=== PATIENT | female | born 1970 | race Caucasian/White ===

== ENCOUNTER 2016-10-30 23:57 | Emergency (ER) | payer BC, OTHER ==
[~2016-10-30] VITALS: Ht 175.3 cm; Wt 91.8 kg
[~2016-10-30 23:57] MED LIST: ATV5X PO; BCPILLS PO; BUPR-79 PO; FLUO40CA8 PO; MELA3TAB PO; RISP3TAB12 PO
[2016-10-30 23:59] VITALS: TEMP 36.8; Ht 175.3 cm; Wt 91.8 kg
[2016-10-31] MEDS ORDERED: LEVO125T4 PO (00:33)
[2016-10-31] MEDS ORDERED: PROM25TA16 PO (00:33)
[2016-10-31] MEDS ORDERED: TRD10 PO (00:33)
[2016-10-31] MEDS ORDERED: VLM5CL PO (00:33)
[2016-10-31] MEDS ORDERED: QUET1TAB10 PO (00:33)
[2016-10-31] MEDS ORDERED: BCPILLS PO (00:36)
[2016-10-31] MEDS ORDERED: VENL75CA PO (00:37)
[2016-10-31] MEDS ORDERED: VORT1TAB PO (00:39)
[2016-10-31] MEDS ORDERED: FOLI1TAB7 PO (00:39)
[2016-10-31] MEDS ORDERED: MULT-506 PO (00:39)
[2016-10-31] MEDS ORDERED: METH10TA4 PO (00:39)
[2016-10-31] MEDS ORDERED: LAMO150T32 PO (00:39)
[2016-10-31] MEDS ORDERED: CYAN10005 PO (00:39)
[2016-10-31 00:41] LABS: BASO % 0.2 %; BASO ABS # 0.01 K/uL (0-0.2); COMPLETE YES; HEMATOCRIT 33.4 % (37-47); IG% 0.2 %; LYMPH % 21.8 %; LYMPH ABS # 1.18 K/uL (1.2-3.4); MEAN CORPUSCULAR HEMOGLOBIN 31.1 pg (25-34); MEAN CORPUSCULAR HGB CONC 33.8 g/dl (32-36); MEAN PLATELET VOLUME 8.9 fL (7.4-10.4); MONO % 9.4 %; NEUT % 66.4 %; PLATELET COUNT 323 K/uL (130-400); RED BLOOD COUNT 3.63 M/uL (4.2-5.4); WHITE BLOOD COUNT 5.42 K/uL (4.8-10.8)
[2016-10-31 01:08] LABS: BUN/CREATININE RATIO 3.8 (10-20); CALCIUM 8.6 mg/dl (8.5-10.1); CREATININE 0.68 mg/dl (0.60-1.20); POTASSIUM 3.1 mmol/L (3.5-5.1)
[2016-10-31 01:10] LABS: ACETAMINOPHEN < 2 ug/ml (10-30)
[2016-10-31 01:19] LABS: ALB/GLOB RATIO 1.1 (0.9-2); THYROID STIMULATING HORMONE 4.97 uIu/ml (0.300-4.500)
[2016-10-31] MEDS ORDERED: ACETAMINOPHEN 500 MG TAB PO STA (02:09)
[2016-10-31 02:29] LABS: URINE APPEARANCE CLEAR (CLEAR); URINE BILIRUBIN NEG (NEG); URINE COLOR YELLOW; URINE NITRITE NEG (NEG); URINE PH 5.5 (4.5-7.5); UROBILINOGEN NEG (NEG); ZZUR CULT IF INDIC CLEAN CATCH NO
[2016-10-31 02:38] LABS: MANUAL MICROSCOPIC REQUIRED? YES; REVIEW REQ? NO
[2016-10-31 03:12] LABS: URINE RBC 0-4 /hpf (0-4)
[2016-10-31 03:13] LABS: URINE BACTERIA NEG (NEG)
[2016-10-31 03:18] LABS: BENZODIAZEPINE, URINE NEG (NEG); COCAINE,URINE NEG (NEG); PHENCYCLIDINE, URINE NEG (NEG)
--- NOTE | 2016-10-31 03:18 | EMERGENCY ROOM VISIT NOTE ---
History Report prepared by Shyla: Suzie Stevens Under the Supervision of: Dr. Howard Zapata M.D. First contact with patient: 00:03 Chief Complaint: MENTAL HEALTH EVALUATION Stated Complaint: DEPRESSION History of Present Illness The patient is a 46 year old female who presents to the Emergency Room for a mental health evaluation. The patient states that she is having worsening depression. She reports that she has been under a lot of stress since her significant other is in [facility]. She states that she has had thoughts of killing herself, but denies ever trying to. She states that tonight she called her psychiatrist who called into here. She reports that she has been in an inpatient psychiatric facility multiple times in the past with the most recent being last year. She notes that she has been drinking tonight and states she has only had 3 wine coolers. She denies drinking daily. The patient notes that the band aid on her arm is from having blood work done at [facility] today. She states that she was there for headaches and gaining 10 lbs in the past two weeks. She reports that they noticed that she had high blood pressure. The patient notes that she has had recent falls from being off balance and dizzy, but notes that she has had this before. The patient denies any drug use. Source of History: patient Onset: this evening Position: other (global) Quality: other (global) Timing: worsening, other (episode) Associated Symptoms: + headache Note: The patient complains of recent falls and dizziness. The patient denies drug use. Review of Systems See HPI for pertinent positives & negatives. A total of 10 systems reviewed and were otherwise negative. Past Medical & Surgical Medical Problems: (1) Anxiety (2) Depression Surgical Problems: (1) History of gastric bypass Family History FHx: manic depression Social History Smoking Status: Never Smoker Alcohol Use: occasionally Drug Use: none Marital Status: , in relationship Housing Status: lives with family Occupation Status: employed Current/Historical Medications Scheduled Control Pills ( Control Pills), 1 TAB PO DAILY Cyanocobalamin (Vitamin B-12), 1,000 MCG PO DAILY Folic Acid (Folvite), 1 MG PO DAILY Lamotrigine (Lamictal), 75 MG PO DAILY Levothyroxine Sodium (Levothyroxine Sodium), 125 MCG PO DAILY Multivitamin (Multivitamin), 1 TAB PO DAILY Quetiapine Fumarate (Seroquel), 200 MG PO HS Venlafaxine Hcl (Effexor Xr), 75 MG PO DAILY Vortioxetine HBr (Trintellix), 5 MG PO DAILY Scheduled PRN Diazepam (Diazepam), 5 MG PO BID PRN for Anxiety Ketorolac Tromethamine (Ketorolac Tromethamine), 10 MG PO Q6 PRN for Migraine Methylphenidate (Ritalin), 10 MG PO TID PRN for UNDECIDED Promethazine HCl (Promethazine HCl), 25 MG PO Q6 PRN for Nausea Allergies Coded Allergies: Codeine (Unverified Allergy, Unknown, `, 10/31/16) Penicillins (Unverified Allergy, Unknown, `, 10/31/16) Physical Exam Vital Signs Date Time Temp Pulse Resp B/P (MAP) Pulse Ox O2 Delivery O2 Flow Rate FiO2 10/31/16 04:47 95 18 137/94 97 Room Air 10/30/16 23:59 36.8 97 18 144/91 100 Room Air Physical Exam GENERAL: Patient is well appearing and in no acute distress. Depressed. Rapid soft speech. Mildly intoxicated. Smells of alcohol. HEENT: No acute trauma, normocephalic atraumatic, mucous membranes moist, no nasal congestion, no scleral icterus. NECK: No stridor, no adenopathy, no meningismus, trachea is midline. LUNGS: No dyspnea. Clear to auscultation and equal bilaterally. No wheeze, no rhonchi. HEART: Regular rate and rhythm. No murmurs, rubs, gallops appreciated. ABDOMEN: Soft, nontender, bowel sounds positive, no masses appreciated, no peritonitis. BACK: No midline tenderness, no CVA tenderness EXTREMITIES: Normal motion all extremities, no cyanosis, no edema. NEUROLOGIC: Alert and oriented, no acute motor or sensory deficits, no focal weakness, cranial nerves grossly intact. SKIN: No rash, no jaundice, no diaphoresis. PSYCH: Admits suicidal ideation. Admits depression. Denies homicidal ideation. Medical Decision & Procedures Laboratory Results 10/31/16 00:30 Red Blood Count 3.63, Mean Corpuscular Volume 92.0, Mean Corpuscular Hemoglobin 31.1, Mean Corpuscular Hemoglobin Concent 33.8, Mean Platelet Volume 8.9, Neutrophils (%) (Auto) 66.4, Lymphocytes (%) (Auto) 21.8, Monocytes (%) (Auto) 9.4, Eosinophils (%) (Auto) 2.0, Basophils (%) (Auto) 0.2, Neutrophils # (Auto) 3.60, Lymphocytes # (Auto) 1.18, Monocytes # (Auto) 0.51, Eosinophils # (Auto) 0.11, Basophils # (Auto) 0.01 10/31/16 00:30 Test 10/31/16 00:30 10/31/16 02:03 White Blood Count 5.42 K/uL (4.8-10.8) Red Blood Count 3.63 M/uL (4.2-5.4) Hemoglobin 11.3 g/dL (12.0-16.0) Hematocrit 33.4 % (37-47) Mean Corpuscular Volume 92.0 fL (80-100) Mean Corpuscular Hemoglobin 31.1 pg (25-34) Mean Corpuscular Hemoglobin Concent 33.8 g/dl (32-36) Platelet Count 323 K/uL (130-400) Mean Platelet Volume 8.9 fL (7.4-10.4) Neutrophils (%) (Auto) 66.4 % Lymphocytes (%) (Auto) 21.8 % Monocytes (%) (Auto) 9.4 % Eosinophils (%) (Auto) 2.0 % Basophils (%) (Auto) 0.2 % Neutrophils # (Auto) 3.60 K/uL (1.4-6.5) Lymphocytes # (Auto) 1.18 K/uL (1.2-3.4) Monocytes # (Auto) 0.51 K/uL (0.11-0.59) Eosinophils # (Auto) 0.11 K/uL (0-0.5) Basophils # (Auto) 0.01 K/uL (0-0.2) RDW Standard Deviation 43.1 fL (36.4-46.3) RDW Coefficient of Variation 12.8 % (11.5-14.5) Immature Granulocyte % (Auto) 0.2 % Immature Granulocyte # (Auto) 0.01 K/uL (0.00-0.02) Anion Gap 7.0 mmol/L (3-11) Est Creatinine Clear Calc Drug Dose 124.8 ml/min Estimated GFR () 121.6 Estimated GFR (Non- 104.9 BUN/Creatinine Ratio 3.8 (10-20) Calcium Level 8.6 mg/dl (8.5-10.1) Total Bilirubin 0.2 mg/dl (0.2-1) Aspartate Amino Transf (AST/SGOT) 24 U/L (15-37) Alanine Aminotransferase (ALT/SGPT) 31 U/L (12-78) Alkaline Phosphatase 92 U/L (45-117) Total Protein 7.1 gm/dl (6.4-8.2) Albumin 3.7 gm/dl (3.4-5.0) Globulin 3.4 gm/dl (2.5-4.0) Albumin/Globulin Ratio 1.1 (0.9-2) Thyroid Stimulating Hormone (TSH) 4.970 uIu/ml (0.300-4.500) Salicylates Level < 1.7 mg/dl (2.8-20) Acetaminophen Level < 2 ug/ml (10-30) Ethyl Alcohol mg/dL 48.0 mg/dl (0-3) Urine Color YELLOW Urine Appearance CLEAR (CLEAR) Urine pH 5.5 (4.5-7.5) Urine Specific [place] 1.010 (1.000-1.030) Urine Protein NEG (NEG) Urine Glucose (UA) NEG (NEG) Urine Ketones NEG (NEG) Urine Occult Blood NEG (NEG) Urine Nitrite NEG (NEG) Urine Bilirubin NEG (NEG) Urine Urobilinogen NEG (NEG) Urine Leukocyte Esterase NEG (NEG) Urine WBC (Auto) /hpf (0-5) Urine RBC (Auto) /hpf (0-4) Urine Hyaline Casts (Auto) /lpf (0-5) Urine Epithelial Cells (Auto) /lpf (0-5) Urine Bacteria (Auto) (NEG) Urine RBC 0-4 /hpf (0-4) Urine WBC 5-10 /hpf (0-5) Urine Epithelial Cells >30 /lpf (0-5) Urine Calcium Oxalate Crystals PRESENT (NONE PRSENT) Urine Bacteria NEG (NEG) Urine Test NEG (NEG) Urine Opiates Screen NEG (NEG) Urine Methadone, Qualitative NEG (NEG) Urine Barbiturates NEG (NEG) Urine Phencyclidine (PCP) Level NEG (NEG) Ur Amphetamine/Methamphetamine NEG (NEG) MDMA (Ecstasy) Screen NEG (NEG) Urine Benzodiazepines Screen NEG (NEG) Urine Cocaine Metabolite NEG (NEG) Urine Marijuana (THC) NEG (NEG) Laboratory results as reviewed by me. Medications Administered Medications (Trade) Dose Ordered Sig/Landy Route Start Time Stop Time Status Last Admin Dose Admin Acetaminophen (Tylenol Tab) 1,000 mg NOW STAT PO 10/31/16 02:09 10/31/16 02:10 DC 10/31/16 02:09 1,000 MG ED Course 0009: The patient was evaluated in room A8. A complete history and physical exam was performed. 0138: The patient is currently being evaluated by [address] [place] [address]. 0208: The patient's bed search has begun. 0209: Ordered Tylenol Tab 1000 mg PO. 0614: The patient has been accepted to [facility]. Medical Decision Differential: Mood Disorder, Overdose, Infectious, Electrolyte Abnormality, Cardiac, Hepatic, Endocrine, Toxicologic, Neurologic, amongst other pathologies entertained. 46 yr old very depressed female arrives with acute worsening of depression and having suicidal thoughts/ideation. No act of furtherance at this time. She is somewhat rapid speech but also quite depressed. Smells of alcohol though etoh within legal limits and she is not significantly intoxicated. Notes some weight issues over last few weeks though medically she is clear from emergency med standpoint. 3 [facility] down to evaluate and she was accepted to [facility] for further treatment. Medication Reconcilliation Current Medication List: was personally reviewed by me Blood Pressure Screening Patient's blood pressure: Elevated blood pressure Blood pressure disposition: Elevated BP felt to be situational Impression Primary Impression: Depression Additional Impression: Suicidal ideation Scribe Attestation The scribe's documentation has been prepared under my direction and personally reviewed by me in its entirety. I confirm that the note above accurately reflects all work, treatment, procedures, and medical decision making performed by me. Departure Information Dispostion Mental Health Acute Care Referrals Nick Amanda III, M.D. (PCP) Patient Instructions My [facility] Problem Qualifiers
[2016-10-31 04:47] VITALS: BP 137/94; PULSE 95; O2SAT 97
== END 2016-10-31 08:23 ==
LOC: C.EDB 23:58 → C.EDA 10-31 08:23
DX: F32.9 Major depressive disorder, single episode, unspecified (principal); R45.851 Suicidal ideations; Z98.84 Bariatric surgery status; Z81.8 Family history of other mental and behavioral disorders; Z79.3 Long term (current) use of hormonal contraceptives; Z79.899 Other long term (current) drug therapy

== ENCOUNTER 2018-07-14 19:24 | Inpatient (IN) ==
[2018-07-14 20:31] LABS: Basophils # (auto) 0.01 K/uL (0-0.2); Basophils % (auto) 0.2 %; Eosinophils # (auto) 0.18 K/uL (0-0.5); Eosinophils % (auto) 3.8 %; Hematocrit (blood only) 40.8 % (37-47); Hemoglobin 13.8 g/dL (12.0-16.0); Lymphocytes # (auto) 2.05 K/uL (1.2-3.4); Lymphocytes % (auto) 42.8 %; Mean Corpuscular Hgb Conc 33.8 g/dL (32-36); Mean Corpuscular Volume 89.9 fL (80-100); Mean Platelet Volume 9.7 fL (7.4-10.4); Monocytes # (auto) 0.31 K/uL (0.11-0.59); Monocytes % (auto) 6.5 %; Neutrophils # (auto) 2.24 K/uL (1.4-6.5); Neutrophils % (auto) 46.7 %; Platelet Count 363 K/uL (130-400); RDW Coefficient of Variation 13.6 % (11.5-14.5); RDW Standard Deviation 45.1 fL (36.4-46.3); Red Blood Count 4.54 M/uL (4.2-5.4); White Blood Count 4.79 K/uL (4.8-10.8)
[2018-07-14 20:46] LABS: Acetaminophen < 2 ug/ml (10-30); Albumin Level 3.9 gm/dl (3.4-5.0); BUN Creatinine Ratio 7.6 (10-20); Calcium 9.2 mg/dl (8.5-10.1); Creatinine Clr Calc Pharmacy 119.3 ml/min; Est GFR (African American) 116.7; Est GFR (Non-African American) 100.7; Potassium 4.2 mmol/L (3.5-5.1); Salicylate < 1.7 mg/dl (2.8-20)
[2018-07-14 20:56] LABS: Albumin Globulin Ratio 1.1 (0.9-2); Bilirubin,Total 0.3 mg/dl (0.2-1); Globulin 3.6 gm/dl (2.5-4.0); Total Protein 7.5 gm/dl (6.4-8.2)
[2018-07-14 21:12] LABS: Appearance Urine Cloudy (Clear); Bilirubin Urine Negative (Negative); Blood Urine Negative (Negative); Color Urine Yellow; Glucose Urine UA Negative (Negative); Ketones Urine Negative (Negative); Leukocyte Esterase Urine Negative (Negative); Nitrite Urine Negative (Negative); Protein Urine Negative (Negative); Urobilinogen Urine Negative (Negative); pH Urine 5.5 (4.5-7.5)
[2018-07-14 21:12] LABS: T4 Free Thyroxine 1.03 ng/dl (0.8-1.6)
[2018-07-14 21:27] LABS: Amphetamines+Metham, Urine Neg (Neg); Barbiturates, Urine Neg (Neg); Benzodiazepine, Urine Neg (Neg); Cocaine, Urine Neg (Neg); MDMA (Ecstacy), Urine Neg (Neg); Methadone, Urine Neg (Neg); Opiate, Urine Neg (Neg); Phencyclidine, Urine Neg (Neg)
[2018-07-14 21:30] LABS: Bacteria Urine Automated 1+ (Negative); Cast Urine Automated 0 /lpf (0-5); Epithelial Cell Urine Auto >30 /lpf (0-5); RBC Urine Automated 0-4 /hpf (0-4)
[2018-07-14] MEDS ORDERED: ACETAMINOPHEN 325 MG TAB PO STA (21:39)
--- NOTE | 2018-07-15 01:26 | Emergency Department Note ---
Entered by Mushtaq Lizarraga acting as a scribe for Davion Valentino DO History of Present Illness General Chief complaint: Mental Health Evaluation Stated complaint: MENTAL HEALTH EVAL Time Seen by Provider: 07/15/18 01:18 Source: patient Limitations: no limitations History of Present Illness Onset (ago): week(s) 1 Location: head Pain Consistency: + intermittent Maximum Pain Intensity: 5 Quality: + other (episodes) Associated symptoms: + denies other symptoms (hearing voices) The patient is a 48 year old female who presents to the Emergency Room with complaints of intermittent manic episodes starting last week. The patient states she has a history of Bipolar disorder and notes she takes Prozac, Ambien, Zyprexa, and Lamictal. She notes she has been taking all her medications. She states last week she was in a hypomanic/manic state and it started getting bad at that time. She notes her depression has been getting bad. She notes Thursday she found out she was going to be questioned regarding her disability benefits and states she got upset when she found that out. She notes she has thoughts of wanting to kill herself and states that started over the weekend. She notes her plan was to wreck her car. She states she does not work. She notes she is not hearing voices. Home Medications Home Medications Medication Instructions Recorded Confirmed Type cholecalciferol (vitamin D3) 1,000 mg PO DAILY 06/02/18 07/14/18 History [Vitamin D3] clonazepam [Klonopin] 0.5 mg PO DAILY PRN 06/02/18 07/14/18 History fluoxetine 30 mg PO DAILY 06/02/18 07/14/18 History levothyroxine [Synthroid] 125 mcg PO DAILY 06/02/18 07/14/18 History metformin 1,500 mg PO DAILY 06/02/18 07/14/18 History olanzapine [Zyprexa] 20 mg PO DAILY 06/02/18 07/14/18 History prazosin 1 mg PO HS 06/02/18 07/14/18 History zolpidem [Ambien CR] 12.5 mg PO DAILY 06/02/18 07/14/18 History cyanocobalamin (vitamin B-12) 1,000 mcg IM MONTHLY 06/09/18 07/14/18 History lamotrigine 75 mg PO BID 06/09/18 07/14/18 History olanzapine 5 mg PO DAILY 06/09/18 07/14/18 History Allergies Allergy/AdvReac Type Severity Reaction Status Date / Time codeine Allergy Unknown ` Unverified 06/09/18 13:54 Penicillins Allergy Unknown ` Unverified 06/09/18 13:54 Past Med/Surg History Medical History Anxiety (Chronic) Depression (Acute) Shilpa (Acute) Status post electroconvulsive therapy (Acute) Anxiety (Chronic) Bipolar disorder (Chronic) Depression (Chronic) Seizure (Resolved) Acute insomnia (Inactive) Bipolar disorder (Inactive) Dehydration (Inactive) Family History Other Cancer Diabetes Gallbladder disease Heart disease Lung disease Social History Preferred Language: Maltese marital status: Current Living Situation: Alone current occupational status: disabled Feels Safe at Home: Yes Smoking Status: Never smoker Review of Systems See HPI for pertinent positives & negatives. and A total of 10 systems reviewed and were otherwise negative Physical Exam Vital Signs Vital Signs - 24 hr 07/14/18 19:27 07/14/18 21:37 07/14/18 23:16 Temperature 36.9 C Temperature Source Oral Sepsis Recent Fever Within 48 Hours No Sepsis New/Unexplained Change in Mental Status No Sepsis Action Taken by Nursing No Action Required Pulse Rate 90 Pulse Rate [Finger] 84 82 Respiratory Rate 18 18 18 Respiratory Effort / Characteristics Non-Labored Spontaneous Respiratory Depth Normal Blood Pressure 152/91 H Blood Pressure [Left Arm] 158/86 H 139/79 Blood Pressure Mean 111 Blood Pressure Mean [Left Arm] 110 99 Pulse Oximetry 99 98 95 Oxygen Delivery Method Room Air Room Air GENERAL: alert, well nourished, no acute distress, non-toxic. Sitting in bed. Disheveled. EYE EXAM: normal conjunctiva OROPHARYNX: no exudate, no erythema, lips, buccal mucosa, and tongue normal and mucous membranes are moist NECK: supple, no nuchal rigidity, no adenopathy, non-tender LUNGS: Clear to auscultation. Normal chest wall mechanics HEART: no murmurs, S1 normal and S2 normal ABDOMEN: abdomen soft, non-tender, normo-active bowel sounds, no masses, no rebound or guarding. BACK: Back is symmetrical on inspection and there is no deformity, no midline tenderness, no CVA tenderness. SKIN: no rashes and no bruising UPPER EXTREMITIES: upper extremities are grossly normal. LOWER EXTREMITIES: No pitting edema. NEURO EXAM: Normal sensorium, cranial nerves II-XII grossly intact, normal speech, no gross weakness of arms, no gross weakness of legs. PSYCH: Admits to suicidal ideations with plan to crash car. Course ED COURSE: Vital signs were reviewed and showed hypertension situationally. The patients medical record was reviewed The above diagnostic studies were performed and reviewed. ED treatments and interventions as stated above. 1939: The patient was evaluated in room A12. A complete history and physical examination was performed. 0230: Upon reevaluation, the patient is stable. I discussed my findings with the patient and she understands and agrees with the treatment plan. 0230: The patient was signed out to Dr. Zapata. The patient remained stable while under my care. The patient will be evaluated for further management. Administered Medications Discontinued Medications Acetaminophen (Tylenol) 650 mg PO NOW STA Stop: 07/14/18 21:40 Last Admin: 07/14/18 21:53 Dose: 650 mg Documented by: [id number] Medical Decision Making Differential Diagnosis Differential diagnosis: Etiologies such as psychiatric disorder, infection, hypoglycemia, electrolyte abnormalities, cardiac sources, intracerebral event, toxicological process, neurologic disorder, as well as others were entertained. Medical Records Attestation: I reviewed the patient's medical records. Home Medications Current Medication List: was personally reviewed by me Laboratory Data Result diagrams: 07/14/18 20:11 07/14/18 20:11 Lab Results 07/14/18 07/14/18 07/14/18 Range/Units 20:11 20:11 20:11 WBC 4.79 L (4.8-10.8) K/uL RBC 4.54 (4.2-5.4) M/uL Hgb 13.8 (12.0-16.0) g/dL Hct 40.8 (37-47) % MCV 89.9 (80-100) fL MCH 30.4 (25-34) pg MCHC 33.8 (32-36) g/dL RDW Std Deviation 45.1 (36.4-46.3) fL RDW Coeff of Krystle 13.6 (11.5-14.5) % Plt Count 363 (130-400) K/uL MPV 9.7 (7.4-10.4) fL Immature Gran % (Auto) 0.0 % Neut % (Auto) 46.7 % Lymph % (Auto) 42.8 % [place] % (Auto) 6.5 % Eos % (Auto) 3.8 % Baso % (Auto) 0.2 % Immature Gran # (Auto) 0.00 (0.00-0.02) K/uL Neut # (Auto) 2.24 (1.4-6.5) K/uL Lymph # (Auto) 2.05 (1.2-3.4) K/uL [place] # (Auto) 0.31 (0.11-0.59) K/uL Eos # (Auto) 0.18 (0-0.5) K/uL Baso # (Auto) 0.01 (0-0.2) K/uL Sodium 136 (136-145) mmol/L Potassium 4.2 (3.5-5.1) mmol/L Chloride 103 (98-107) mmol/L Carbon Dioxide 27 (21-32) mmol/L Anion Gap 7.0 (3-11) BUN 5 L (7-18) mg/dl Creatinine 0.71 (0.6-1.2) mg/dl Est Cr Clr Drug Dosing 119.3 ml/min Est GFR ( Amer) 116.7 Est GFR (Non-Af Amer) 100.7 BUN/Creatinine Ratio 7.6 L (10-20) Glucose 77 (70-99) mg/dl Calcium 9.2 (8.5-10.1) mg/dl Total Bilirubin 0.3 (0.2-1) mg/dl AST 16 (15-37) U/L ALT 20 (12-78) U/L Alkaline Phosphatase 77 (45-117) U/L Total Protein 7.5 (6.4-8.2) gm/dl Albumin 3.9 (3.4-5.0) gm/dl Globulin 3.6 (2.5-4.0) gm/dl Albumin/Globulin Ratio 1.1 (0.9-2) TSH 4.520 H (0.300-4.500) uIu/ml Free T4 1.03 (0.8-1.6) ng/dl Urine Color Urine Appearance (Clear) Urine pH (4.5-7.5) Ur Specific [place] (1.000-1.030) Urine Protein (Negative) Urine Glucose (UA) (Negative) Urine Ketones (Negative) Urine Blood (Negative) Urine Nitrite (Negative) Urine Bilirubin (Negative) Urine Urobilinogen (Negative) Ur Leukocyte Esterase (Negative) Urine WBC (Auto) (0-5) /hpf Urine RBC (Auto) (0-4) /hpf U Hyaline Cast (Auto) (0-5) /lpf U Epithel Cells (Auto) (0-5) /lpf Urine Bacteria (Auto) (Negative) Urine RBC Urine WBC Ur Epithelial Cells Urine Bacteria POC Ur Test (NEG) Salicylates < 1.7 L (2.8-20) mg/dl Urine Opiates Screen (Neg) Ur Methadone, Qual (Neg) Acetaminophen < 2 L (10-30) ug/ml Urine Barbiturates (Neg) Ur Phencyclidine (PCP) (Neg) U Amphetamin/Meth Scrn (Neg) MDMA (Ecstasy) Screen (Neg) U Benzodiazepines Scrn (Neg) Ur Cocaine Metabolite (Neg) U Marijuana (THC) Screen (Neg) Ethyl Alcohol mg/dL (0-3) mg/dl 07/14/18 07/14/18 07/14/18 Range/Units 20:11 20:54 20:54 WBC (4.8-10.8) K/uL RBC (4.2-5.4) M/uL Hgb (12.0-16.0) g/dL Hct (37-47) % MCV (80-100) fL MCH (25-34) pg MCHC (32-36) g/dL RDW Std Deviation (36.4-46.3) fL RDW Coeff of Krystle (11.5-14.5) % Plt Count (130-400) K/uL MPV (7.4-10.4) fL Immature Gran % (Auto) % Neut % (Auto) % Lymph % (Auto) % [place] % (Auto) % Eos % (Auto) % Baso % (Auto) % Immature Gran # (Auto) (0.00-0.02) K/uL Neut # (Auto) (1.4-6.5) K/uL Lymph # (Auto) (1.2-3.4) K/uL [place] # (Auto) (0.11-0.59) K/uL Eos # (Auto) (0-0.5) K/uL Baso # (Auto) (0-0.2) K/uL Sodium (136-145) mmol/L Potassium (3.5-5.1) mmol/L Chloride (98-107) mmol/L Carbon Dioxide (21-32) mmol/L Anion Gap (3-11) BUN (7-18) mg/dl Creatinine (0.6-1.2) mg/dl Est Cr Clr Drug Dosing ml/min Est GFR ( Amer) Est GFR (Non-Af Amer) BUN/Creatinine Ratio (10-20) Glucose (70-99) mg/dl Calcium (8.5-10.1) mg/dl Total Bilirubin (0.2-1) mg/dl AST (15-37) U/L ALT (12-78) U/L Alkaline Phosphatase (45-117) U/L Total Protein (6.4-8.2) gm/dl Albumin (3.4-5.0) gm/dl Globulin (2.5-4.0) gm/dl Albumin/Globulin Ratio (0.9-2) TSH (0.300-4.500) uIu/ml Free T4 (0.8-1.6) ng/dl Urine Color Yellow Urine Appearance Cloudy A (Clear) Urine pH 5.5 (4.5-7.5) Ur Specific [place] 1.010 (1.000-1.030) Urine Protein Negative (Negative) Urine Glucose (UA) Negative (Negative) Urine Ketones Negative (Negative) Urine Blood Negative (Negative) Urine Nitrite Negative (Negative) Urine Bilirubin Negative (Negative) Urine Urobilinogen Negative (Negative) Ur Leukocyte Esterase Negative (Negative) Urine WBC (Auto) 1-5 (0-5) /hpf Urine RBC (Auto) 0-4 (0-4) /hpf U Hyaline Cast (Auto) 0 (0-5) /lpf U Epithel Cells (Auto) >30 H (0-5) /lpf Urine Bacteria (Auto) 1+ H (Negative) Urine RBC Not Reportable Urine WBC Not Reportable Ur Epithelial Cells Not Reportable Urine Bacteria Not Reportable POC Ur Test (NEG) Salicylates (2.8-20) mg/dl Urine Opiates Screen Neg (Neg) Ur Methadone, Qual Neg (Neg) Acetaminophen (10-30) ug/ml Urine Barbiturates Neg (Neg) Ur Phencyclidine (PCP) Neg (Neg) U Amphetamin/Meth Scrn Neg (Neg) MDMA (Ecstasy) Screen Neg (Neg) U Benzodiazepines Scrn Neg (Neg) Ur Cocaine Metabolite Neg (Neg) U Marijuana (THC) Screen Neg (Neg) Ethyl Alcohol mg/dL 90.2 H (0-3) mg/dl 07/14/18 Range/Units 20:54 WBC (4.8-10.8) K/uL RBC (4.2-5.4) M/uL Hgb (12.0-16.0) g/dL Hct (37-47) % MCV (80-100) fL MCH (25-34) pg MCHC (32-36) g/dL RDW Std Deviation (36.4-46.3) fL RDW Coeff of Krystle (11.5-14.5) % Plt Count (130-400) K/uL MPV (7.4-10.4) fL Immature Gran % (Auto) % Neut % (Auto) % Lymph % (Auto) % [place] % (Auto) % Eos % (Auto) % Baso % (Auto) % Immature Gran # (Auto) (0.00-0.02) K/uL Neut # (Auto) (1.4-6.5) K/uL Lymph # (Auto) (1.2-3.4) K/uL [place] # (Auto) (0.11-0.59) K/uL Eos # (Auto) (0-0.5) K/uL Baso # (Auto) (0-0.2) K/uL Sodium (136-145) mmol/L Potassium (3.5-5.1) mmol/L Chloride (98-107) mmol/L Carbon Dioxide (21-32) mmol/L Anion Gap (3-11) BUN (7-18) mg/dl Creatinine (0.6-1.2) mg/dl Est Cr Clr Drug Dosing ml/min Est GFR ( Amer) Est GFR (Non-Af Amer) BUN/Creatinine Ratio (10-20) Glucose (70-99) mg/dl Calcium (8.5-10.1) mg/dl Total Bilirubin (0.2-1) mg/dl AST (15-37) U/L ALT (12-78) U/L Alkaline Phosphatase (45-117) U/L Total Protein (6.4-8.2) gm/dl Albumin (3.4-5.0) gm/dl Globulin (2.5-4.0) gm/dl Albumin/Globulin Ratio (0.9-2) TSH (0.300-4.500) uIu/ml Free T4 (0.8-1.6) ng/dl Urine Color Urine Appearance (Clear) Urine pH (4.5-7.5) Ur Specific [place] (1.000-1.030) Urine Protein (Negative) Urine Glucose (UA) (Negative) Urine Ketones (Negative) Urine Blood (Negative) Urine Nitrite (Negative) Urine Bilirubin (Negative) Urine Urobilinogen (Negative) Ur Leukocyte Esterase (Negative) Urine WBC (Auto) (0-5) /hpf Urine RBC (Auto) (0-4) /hpf U Hyaline Cast (Auto) (0-5) /lpf U Epithel Cells (Auto) (0-5) /lpf Urine Bacteria (Auto) (Negative) Urine RBC Urine WBC Ur Epithelial Cells Urine Bacteria POC Ur Test NEG (NEG) Salicylates (2.8-20) mg/dl Urine Opiates Screen (Neg) Ur Methadone, Qual (Neg) Acetaminophen (10-30) ug/ml Urine Barbiturates (Neg) Ur Phencyclidine (PCP) (Neg) U Amphetamin/Meth Scrn (Neg) MDMA (Ecstasy) Screen (Neg) U Benzodiazepines Scrn (Neg) Ur Cocaine Metabolite (Neg) U Marijuana (THC) Screen (Neg) Ethyl Alcohol mg/dL (0-3) mg/dl Blood Pressure Blood Pressure Findings: Elevated blood pressure Blood Pressure Disposition: elevated BP felt to be situational MDM Narrative Patient is a 40-year-old female who presents the ER with a history of bipolar depression and feeling extremely depressed. History of suicidal ideations which has been present for the past 5 days. Patient has no other complaints at this time. She does have a plan to crash her car. She has been taking her meds. Labs are obtained show no significant leukocytosis or anemia. BMP with LFTs bilirubin and TSH was unremarkable. UA was negative. was negative. Tox did have a slightly elevated alcohol at 90. Patient was evaluated by her psychiatric care managers. Patient was signed out to Dr. Zapata awaiting placement. She is medically stable. Impression & Plan Mood disorder Discharge Plan Visit Data Chief Complaint: Mental Health Evaluation Stated Complaint: MENTAL HEALTH EVAL ED Provider: Howard Zapata Discharge Problem: Mood disorder Forms Stand Alone Forms: My [facility] Prescriptions Prescriptions: No Action metformin 500 mg Tablet 1,500 mg PO DAILY RF: 0 prazosin 1 mg Capsule 1 mg PO HS RF: 0 clonazepam [Klonopin] 0.5 mg Tablet 0.5 mg PO DAILY PRN (Reason: Anxiety) RF: 0 levothyroxine [Synthroid] 125 mcg Tablet 125 mcg PO DAILY RF: 0 fluoxetine 10 mg Capsule 30 mg PO DAILY RF: 0 olanzapine [Zyprexa] 20 mg Tablet 20 mg PO DAILY RF: 0 zolpidem [Ambien CR] 12.5 mg Tablet,Ext Release Multiphase 12.5 mg PO DAILY RF: 0 cholecalciferol (vitamin D3) [Vitamin D3] 1,000 unit Tablet 1,000 mg PO DAILY RF: 0 lamotrigine 150 mg Tablet 75 mg PO BID RF: 0 olanzapine 5 mg Tablet 5 mg PO DAILY RF: 0 cyanocobalamin (vitamin B-12) 1,000 mcg/mL Solution 1,000 mcg IM MONTHLY RF: 0 The scribe's documentation has been prepared under my direction and personally reviewed by me in its entirety. I confirm that the note above accurately reflects all work, treatment, procedures, and medical decision making performed by me.
--- NOTE | 2018-07-15 06:22 | Emergency Department Note ---
ED Visit Note ED Physician Sign Out Note: 48 yr old female with history of Bipolar who arrives feeling suicidal and Dr Valentino initially medically cleared her, and then signed out to me pending placement. 201 planned. Pending placement. No issues overnight. Signed out to Dr Kelley pending placement. Howard Zapata MD
--- NOTE | 2018-07-15 08:06 | Emergency Department Note ---
ED Visit Note Patient stable while here without other acute issues requiring intervention. Previously medically cleared. 201 completed for suicidal thoughts. Waiting here for possible inpatient psychiatric treatment here. Accepted to 3[facility]. 201 signed. ATC .
[2018-07-15 11:13] VITALS: O2SAT 99
[2018-07-15] MEDS ORDERED: ALUMINUM/MAGNESIUM SUSP 30 ML UDC PO PRN (11:20)
[2018-07-15] MEDS ORDERED: ACETAMINOPHEN 325 MG TAB PO PRN (11:20)
[2018-07-15] MEDS ORDERED: BISMUTH SUBSALICYLATE PER ML OMNICELL CHARGE PO PRN (11:20)
[2018-07-15] MEDS ORDERED: MAGNESIUM HYDROXIDE SUSP 30 ML UDC PO PRN (11:20)
[2018-07-15] MEDS ORDERED: SODIUM CHLORIDE 0.65% NA SOLN 45 ML (OCEAN) PRN (11:20)
[2018-07-15] MEDS ORDERED: METFORMIN HCL 500 MG TAB PO SCH (15:00)
[2018-07-15] MEDS: CHOLECALCIFEROL 1,000 UNITS TAB PO SCH (16:01)
[2018-07-15] MEDS: LEVOTHYROXINE SODIUM 125 MCG TABLET PO SCH (16:01)
[2018-07-15] MEDS ORDERED: clonazePAM 0.5 MG TAB PO PRN (19:18)
[2018-07-15] MEDS ORDERED: PRAZOSIN HCL 1 MG CAP PO PRN (19:18)
[2018-07-15] MEDS ORDERED: ZOLPIDEM TARTRATE 10 MG TAB PO PRN (20:00)
[2018-07-15] MEDS: OLANZapine 10 MG TAB PO SCH (20:55)
[2018-07-15] MEDS: lamoTRIgine 25 MG TAB PO SCH (20:55)
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
[2018-07-16] MEDS: LEVOTHYROXINE SODIUM 125 MCG TABLET PO SCH (08:01)
[2018-07-16] MEDS ORDERED: FLUOXETINE HCL 20 MG CAP PO SCH (09:00)
[2018-07-16] MEDS: lamoTRIgine 25 MG TAB PO SCH ×2 (09:12→21:01)
[2018-07-16] MEDS: CHOLECALCIFEROL 1,000 UNITS TAB PO SCH (09:13)
--- NOTE | 2018-07-16 15:06 | Psychiatric Progress Note ---
Date of Service July 16, 2018 Impression / Recommendations Impression 48-year-old female admitted voluntary for inpatient psychiatric admission due to worsening depressive symptoms and SI. Pt was referred for admission by her outpatient therapist following a session last evening. Due to patient's complex psychiatric history, will be important to gather collateral information from patient outpatient prescriber and therapist. Pt is able to contract for safety on the unit, and we will continue home mediation regimen until further information can be obtained. This was discussed with the patient who was agreeable. Will encourage the patient participate in group and recreational t herapies during her hospitalization. If indicated, she will be encouraged to have a family meeting with an outpatient support. Given the severity of patient's condition, worsening SI with plan, and worsening depressive symptoms, inpatient psychiatric admission is medically necessary. Pt is at high risk of harm to self if she is discharged prematurely without appropriate mitigation of risk factors and an established safety/aftercare plan. Dr. Nancy Varma was directly involved in review and discussion of the patient's case and participated in medical decision making regarding treatment re commendations. (1) Suicidal ideation: 07/15 - Admitted to a locked inpatient behavioral health unit, on q15 minute safety checks - Encourage medication initiation/adjustments as indicated - Encourage participation in group and recreational therapies - Gather collateral information from outpatient providers - Suggest family meeting to involve outpatient supports in safety planning - Arrange appropriate aftercare (2) Bipolar disorder: 07/15 - Coordinate care with patient's outpatient prescriber - reviewed recommendations personally with Dr. Moore - Will continue home medication regimen until able to discuss in further detail - Request outpatient records (3) Anxiety: 07/15 - Continue current medication regimen - Current presentation is predominantly related to mood disorder (4) Hypothyroidism: 07/15 - Continue home dose of levothyroxine; TSH elevated in ED, Free T4 wnl Inventory Assets Strengths: Willingness for treatment, established with outpatient providers Needs: possible medication adjustments, processing of situational stressors, development of healthy and effective coping strategies Risk Factors Assessment Male: No : Yes Do You Have Access To A Gun?: No Health Problems: No Mental Health Diagnoses: Yes Substance Use Disorders: No Previous Attempt: No Family History of Suicide: No Previous Psychiatric Hospitalization: Yes Hopelessness: Yes Smoker: No Protective Factors Assessment Druze Beliefs: Yes : No Responsible for Young Children: Yes Employed: No Stable Relationships: No Supportive Family: No Good Rapport with Provider: Yes Interval History Chief Complaint "Bipolar Disorder, Depressed". Review of Systems Sleep Information Total Hours of Sleep: 6.5 Meal Information Percent Meal Consumed - Breakfast: 100 Percent Meal Consumed - Lunch: 100 Percent Meal Consumed - Dinner: 25 Subjective Subjective Patient was seen & assessed and interval progress reviewed with Treatment Team. I met individually with the patient in order to assess her current mental status, evaluate her response to treatment, coordinate any necessary changes in the patient's treatment plan with the patient, and address issues and concerns that may arise. The patient begins by telling me that she is chronically depressed and for many years did not carry a diagnosis of bipolar disorder because she had not had a manic or hypomanic episode. However, with time, she began to experience what probably would best be called hypomanic episodes that lasted approximately 4-6 weeks once or twice a year. She also has periods of time during which she has mixed hypomanic and depressed symptoms, but for most of the year she is depressed and rarely has any sustained periods of euthymia. She has availed herself of multiple psychiatric treatment, including a fairly extensive list of antidepressant medications, antipsychotic medications uses mood stabilizers, mood stabilizer such as lithium carbonate, and anticonvulsant such as carbamazepine and lamotrigine, as well as ECT, TMS, and ketamine (although, apparently, the ketamine was not used as an antidepressant). The patient indicates that she is generally been able to tolerate selective serotonin reuptake inhibitors, but they have not been particularly effective. She describes having undergone genetic testing for antidepressant selection and recalls that they were not many medications on her list of antidepressants that were expected to be effective at standard dosages. She indicates that she has had great difficulty tolerating antipsychotic medications, passed out and had a head injury while taking carbamazepine, had exaggerated coarse tremors on lithium, and has been unable to afford trials of certain other medications because of insurance coverage and financial assets. The patient cites a number of psychosocial stressors as being contributory to her current distress. These include the fact that her boyfriend, a clinical psychologist, is currently incarcerated, apparently for sexual offenses involving former patients, and the boyfriend was recently denied parole. The patient also has been dependent financially on disability benefits and her insurance agency recently indicated that they are considering disallowing further payments, at least pending an independent evaluation by 1 of their providers. The patient reports that she is under significant financial stress. She notes that she is chronically suicidal, but usually not while hypomanic. However, a recent hypomanic episode included attendant persistent suicidal thoughts which concerned her, and when the hypomanic episode resolved and her depression returned her suicidal thoughts became even more pronounced, and she described herself as being "at the precipice" at the time of her current admission to the behavioral health unit. Her suicidal plan was to crash her car at high speed in a location that would not endanger other persons. In consultation with her outpatient psychiatrist, Dr. Carmel Rodriguez have been advised to consider increasing her dose of Prozac from 20 mg daily to a dose of 40 mg daily. (Prozac had been decreased during the most recent hypomanic episode, but in the past her Prozac dose has been as high as 60 mg daily, and the patient reports that Prozac is of some benefit in managing her depression, although the relief is described as being "only partial.") Physical Exam Psychiatric Orientation: oriented x 3 Apperance: appropriately dressed, appropriately groomed and appeared stated age Eye Contact: + fair eye contact Motor Behavior: steady gait and station and no abnormal motor movements The patient's speech is somewhat slowed, but is spontaneous and she speaks in complete and full sentences. Affect: + depressed affect Mood: + depressed mood Thought Process: linear/logical thought process Thought Content: reality based without delusions The patient reports chronic suicidal thoughts. Today, she indicates that these thoughts are not currently associated with a specific suicidal plan or suicidal intent. However, she reports that she remains depressed and recognizes that she may have difficulty tolerating the stress of returning home, given her many psychosocial stressors. Homicidal Thoughts: denies homicidal thoughts Hallucinations: no auditory hallucinations Cognition: recent memory grossly intact, remote memory grossly intact and language grossly intact Estimated Intelligence: + above average estimated intelligence Insight: good insight Judgement: good judgement Vital Signs (Past 24 Hours) Last Vital Signs Temp 36.5 C 07/16/18 06:58 Pulse 76 07/16/18 06:58 Resp 18 07/16/18 06:58 BP 114/80 07/16/18 06:58 Pulse Ox 99 07/15/18 11:53 Results & Data Current Inpatient Medications Current Inpatient Medications: Current Inpatient Medications Acetaminophen (Tylenol) 650 mg PO Q4H PRN PRN Reason: Headache or Minor Fever Stop: 08/14/18 11:19 Al Hydrox/Mg Hydrox/Simethicone (Maalox) 30 ml PO Q4H PRN PRN Reason: GI Upset Stop: 08/14/18 11:19 Bismuth Subsalicylate (Kaopectate) 15 ml PO PRN PRN PRN Reason: Loose Stool Stop: 08/14/18 11:19 Clonazepam (Klonopin) 0.5 mg PO DAILY PRN PRN Reason: Anxiety Stop: 08/14/18 19:17 Fluoxetine HCl (Prozac) 40 mg PO QAM MERI Stop: 08/16/18 08:59 Hydroxyzine HCl (Vistaril) 25 mg PO Q4H PRN PRN Reason: Anxiety Stop: 08/14/18 11:19 Hydroxyzine HCl (Vistaril) 50 mg PO HSZ PRN PRN Reason: Insomnia Stop: 08/14/18 11:19 Lamotrigine (Lamictal) 75 mg PO BID MERI Stop: 08/14/18 20:59 Last Admin: 07/16/18 09:12 Dose: 75 mg Documented by: Levothyroxine Sodium (Synthroid) 125 mcg PO DAILYBB MERI Stop: 08/14/18 14:59 Last Admin: 07/16/18 08:01 Dose: 125 mcg Documented by: Magnesium Hydroxide (Milk Of Magnesia) 30 ml PO DAILY PRN PRN Reason: Heartburn Stop: 08/14/18 11:19 Metformin HCl (Glucophage) 1,500 mg PO QDD MERI Stop: 08/15/18 17:44 Olanzapine (Zyprexa) 20 mg PO HS MERI Stop: 08/14/18 21:59 Last Admin: 07/15/18 20:55 Dose: 20 mg Documented by: Prazosin HCl (Prazosin Hcl) 1 mg PO HS PRN PRN Reason: nightmares Stop: 08/14/18 19:17 Sodium Chloride (Pound Nasal) 1 - 2 sprays NA PRN PRN PRN Reason: Nasal Dryness/Congestion Stop: 08/14/18 11:19 Vitamin D (Vitamin D3) 1,000 units PO DAILY MERI Stop: 08/14/18 14:59 Last Admin: 07/16/18 09:13 Dose: 1,000 units Documented by: Zolpidem Tartrate (Ambien) 10 mg PO HS PRN PRN Reason: Sleep Stop: 08/14/18 19:59 Post Discharge Appointments Primary Care Physician Name Of Family Doctor: Dr Nick Amanda - [facility] Time of Appointment with PCP: follow up as needed. Provider Appointment Comment: [address], [place] [address] Psychiatrist Name of Psychiatrist: [facility] - Dr. Moore Psychiatrist's Psychiatric Appointment Comment: [address], [place] [address] Therapist Name of Therapist: Ally Wynne PhD, [facility] Therapist's Date of Therapist Appointment: 07/21/18 Time of Therapist Appointment: 5pm [facility] [address] [facility] [address] Manager Application Development Name of Manager Application Development: Renan CARRANZA Phone Number for Manager Application Development: Case Management Appointment Comment: [address], [place] [address] Partial or Psych Rehab Name of Partial or Psych Rehab: [facility] Phone Number of Partial or Psych Rehab: [phone] Partial or Psych Rehab Appointment Comment: [address] [facility], [place] [address] Contact Information Discharge Discharge Address: [address] [place] [address], [place] [address] CPT Code CPT Code 18836 [id number] (1) Bipolar disorder Active/Remission status: currently active Current bipolar episode type: depressed Current episode severity: severe Psychotic features: without psychotic features Qualified Code(s): F31.4 - Bipolar disorder, current episode depressed, severe, without psychotic features
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
[2018-07-16] MEDS: METFORMIN HCL 500 MG TAB PO SCH (17:26)
--- NOTE | 2018-07-16 18:02 | Psychiatric Progress Note ---
Date of Service July 16, 2018 Impression / Recommendations Impression The patient is a 48-year-old woman with a known diagnosis of bipolar disorder who was admitted because of worsening depression accompanied by suicidal ideation, suicidal plan and reported suicidal intent. The patient begins the evaluation today by telling me that she is chronically depressed and for many years did not carry a diagnosis of bipolar disorder because she had not had a manic or hypomanic episode. However, with time, she began to experience what probably would best be called hypomanic episodes that lasted approximately 4-6 weeks once or twice a year. She also has periods of time during which she has mixed hypomanic and depressed symptoms, but for most of the year she is depressed and rarely has any sustained periods of euthymia. She has availed herself of multiple psychiatric treatment, including a fairly extensive list of antidepressant medications, antipsychotic medications uses mood stabilizers, mood stabilizer such as lithium carbonate, and anticonvulsant such as carbamazepine and lamotrigine, as well as ECT, TMS, and ketamine (although, apparently, the ketamine was not used as an antidepressant). The patient indicates that she is generally been able to tolerate selective serotonin reuptake inhibitors, but they have not been particularly effective. She describes having undergone genetic testing for antidepressant selection and recalls that they were not many medications on her list of antidepressants that were expected to be effective at standard dosages. She indicates that she has had great difficulty tolerating antipsychotic medications, passed out and had a head injury while taking carbamazepine, had exaggerated coarse tremors on lithium, and has been unable to afford trials of certain other medications because of insurance coverage and financial assets. The patient cites a number of psychosocial stressors as being contributory to her current distress. These include the fact that her boyfriend, a clinical psychologist, is currently incarcerated, apparently for sexual offenses involving former patients, and the boyfriend was recently denied parole. The patient also has been dependent financially on disability benefits and her insurance agency recently indicated that they are considering disallowing further payments, at least pending an independent evaluation by 1 of their providers. The patient reports that she is under significant financial stress. She notes that she is chronically suicidal, but usually not while hypomanic. However, a recent hypomanic episode included attendant persistent suicidal thoughts which concerned her, and when the h ypomanic episode resolved and her depression returned her suicidal thoughts became even more pronounced, and she described herself as being "at the precipice" at the time of her current admission to the behavioral health unit. Her suicidal plan was to crash her car at high speed in a location that would not endanger other persons. In consultation with her outpatient psychiatrist, Dr. Carmel Moore we have been advised to consider increasing her dose of Prozac from 20 mg daily to a dose of 40 mg daily. (Prozac had been decreased during the most recent hypomanic episode, but in the past her Prozac dose has been as high as 60 mg daily, and the patient reports that Prozac is of some benefit in managing her depression, although the relief is described as being "only partial.") (1) Suicidal ideation: 07/15 - Admitted to a locked inpatient behavioral health unit, on q15 minute safety checks - Encourage medication initiation/adjustments as indicated - Encourage participation in group and recreational therapies - Gather collateral information from outpatient providers - Suggest family meeting to involve outpatient supports in safety planning - Arrange appropriate aftercare 07/16 -The patient reports ongoing suicidal thoughts. However, today she tells us that she no longer feels as if she is "standing on the precipice" and the suicid al thoughts are less intensive, less intrusive, and are not currently associated with an intent to act, at least not in the hospital. She does note that she is aware that she is still facing a number of psychosocial stressors in the community, and although she does not expect to achieve euthymia, she believes that she would like to have her level of depression improved prior to discharge, in order to mitigate risk. (2) Bipolar disorder: 07/15 - Coordinate care with patient's outpatient prescriber - reviewed recommendations personally with Dr. Moore - Will continue home medication regimen until able to discuss in further detail - Request outpatient records 07/16 -This is a very complex case given the patient's poor response to a number of pharmacologic and other interventions designed to treat depression and bipolar disorder, as well as difficulty tolerating a number of different interventions, and further complicated by a history of head injury and childhood emotional trauma. -She strongly identifies her major problem is being with depression. She describes hypomanic episodes that include symptoms such as increased energy, decreased desire for sleep, the ability to be motivated to get things done, but without engaging in dangerous or particularly impulsive behaviors. Her goal is to achieve sustained euthymia, but for her the more immediate concern is to find relief from depressiona problem that has been present since his latency. -The patient does indicate that she has responded to some degree to Prozac. Prozac had been decreased to a dose of 20 mg a day during the hypomanic episode that had recently occurred, and her outpatient provider is recommending that we increase the dose of Prozac to 40 mg a day. Accordingly, I have ordered Prozac to increase to 40 mg a day starting tomorrow. Present on Admission?: Yes (3) Anxiety: 07/15 - Continue current medication regimen - Current presentation is predominantly related to mood disorder 07/16 - Hopefully, the increased dose of Prozac (referenced above) will assist in managing the patient's generalized anxiety. -The patient's anxiety is largely attributable to a number of complex psychosocial stressors (4) Hypothyroidism: 07/15 - Continue home dose of levothyroxine; TSH elevated in ED, Free T4 wnl Risk Factors Assessment Male: No : Yes Do You Have Access To A Gun?: No Health Problems: No Mental Health Diagnoses: Yes Substance Use Disorders: No Previous Attempt: No Family History of Suicide: No Previous Psychiatric Hospitalization: Yes Hopelessness: Yes Smoker: No Protective Factors Assessment Nondenominational Beliefs: Yes : No Responsible for Young Children: Yes Employed: No Stable Relationships: No Supportive Family: No Good Rapport with Provider: Yes Interval History Chief Complaint "Bipolar, Depressed". Review of Systems Sleep Information Total Hours of Sleep: 6.5 Meal Information Percent Meal Consumed - Breakfast: 100 Percent Meal Consumed - Lunch: 100 Percent Meal Consumed - Dinner: 25 Subjective Subjective The patient is a 48-year-old woman with a known diagnosis of bipolar disorder who was admitted because of worsening depression accompanied by suicidal ideation, suicidal plan and reported suicidal intent. The patient begins the evaluation today by telling me that she is chronically depressed and for many years did not carry a diagnosis of bipolar disorder because she had not had a manic or hypomanic episode. However, with time, she began to experience what probably would best be called hypomanic episodes that lasted approximately 4-6 weeks once or twice a year. She also has periods of time during which she has mixed hypomanic and depressed symptoms, but for most of the year she is depressed and rarely has any sustained periods of euthymia. She has availed herself of multiple psychiatric treatment, including a fairly extensive list of antidepressant medications, antipsychotic medications uses mood stabilizers, mood stabilizer such as lithium carbonate, and anticonvulsant such as carbamazepine and lamotrigine, as well as ECT, TMS, and ketamine (although, apparently, the ketamine was not used as an antidepressant). The patient indicates that she is generally been able to tolerate selective serotonin reuptake inhibitors, but they have not been particularly effective. She describes having undergone genetic testing for antidepressant selection and recalls that they were not many medications on her list of antidepressants that were expected to be effective at standard dosages. She indicates that she has had great difficulty tolerating antipsychotic medications, passed out and had a head injury while taking carbamazepine, had exaggerated coarse tremors on lithium, and has been unable to afford trials of certain other medications because of insurance coverage and financial assets. The patient cites a number of psychosocial stressors as being contributory to her current distress. These include the fact that her boyfriend, a clinical psychologist, is currently incarcerated, apparently for sexual offenses involving former patients, and the boyfriend was recently denied parole. The patient also has been dependent financially on disability benefits and her insurance agency recently indicated that they are considering disallowing further payments, at least pending an independent evaluation by 1 of their providers. The patient reports that she is under significant financial stress. She notes that she is chronically suicidal, but usually not while hypomanic. However, a recent hypomanic episode included attendant persistent suicidal thoughts which concerned her, and when the hypomanic episode resolved and her depression returned her suicidal thoughts became even more pronounced, and she described herself as being "at the precipice" at the time of her current admission to the behavioral health unit. Her suicidal plan was to crash her car at high speed in a location that would not endanger other persons. In consultation with her outpatient psychiatrist, Dr. Carmel Rodriguez have been advised to consider increasing her dose of Prozac from 20 mg daily to a dose of 40 mg daily. (Prozac had been decreased during the most recent hypomanic episode, but in the past her Prozac dose has been as high as 60 mg daily, and the patient reports that Prozac is of some benefit in managing her depression, although the relief is described as being "only partial.") In reviewing the medications medications with the patient we learned that one of the medications that she believes that she has not tried is Pristiq. The patient also believes that this medication may have been on the list of compatible medications identified through genetic testing at [facility]. Pristiq may not be covered by the patient's insurance plan, but it can often be purchased at a discount through available coupons, and may be an option following discharge. Physical Exam Psychiatric Orientation: oriented x 3 Apperance: appropriately dressed, appropriately groomed and appeared stated age Eye Contact: + fair eye contact Motor Behavior: + tremor The patient's speech is soft, slightly slowed, but spontaneous and delivered in complete and detailed sentences. Affect: + depressed affect and + anxious affect Mood: + depressed mood and + anxious mood Thought Process: goal directed thought process Thought Content: reality based without delusions Patient reports long-standing suicidal thoughts, and notes suicidal intent prior to admission. However, she reports that she no longer feels as if she is "standing on the precipice" in terms of actually following through on suicidal thoughts. However, she cites a number of psychosocial stressors that are ongoing, as well as ongoing depressed mood Homicidal Thoughts: denies homicidal thoughts Hallucinations: no auditory hallucinations Cognition: recent memory grossly intact, remote memory grossly intact, attention grossly intact and language grossly intact Estimated Intelligence: + above average estimated intelligence Insight: + fair insight Judgement: + fair judgement Vital Signs (Past 24 Hours) Last Vital Signs Temp 36.5 C 07/16/18 06:58 Pulse 76 07/16/18 06:58 Resp 18 07/16/18 06:58 BP 114/80 07/16/18 06:58 Pulse Ox 99 07/15/18 11:53 Results & Data Current Inpatient Medications Current Inpatient Medications: Current Inpatient Medications Acetaminophen (Tylenol) 650 mg PO Q4H PRN PRN Reason: Headache or Minor Fever Stop: 08/14/18 11:19 Al Hydrox/Mg Hydrox/Simethicone (Maalox) 30 ml PO Q4H PRN PRN Reason: GI Upset Stop: 08/14/18 11:19 Bismuth Subsalicylate (Kaopectate) 15 ml PO PRN PRN PRN Reason: Loose Stool Stop: 08/14/18 11:19 Clonazepam (Klonopin) 0.5 mg PO DAILY PRN PRN Reason: Anxiety Stop: 08/14/18 19:17 Fluoxetine HCl (Prozac) 40 mg PO QAM MERI Stop: 08/16/18 08:59 Hydroxyzine HCl (Vistaril) 25 mg PO Q4H PRN PRN Reason: Anxiety Stop: 08/14/18 11:19 Hydroxyzine HCl (Vistaril) 50 mg PO HSZ PRN PRN Reason: Insomnia Stop: 08/14/18 11:19 Lamotrigine (Lamictal) 75 mg PO BID MERI Stop: 08/14/18 20:59 Last Admin: 07/16/18 09:12 Dose: 75 mg Documented by: Levothyroxine Sodium (Synthroid) 125 mcg PO DAILYBB MERI Stop: 08/14/18 14:59 Last Admin: 07/16/18 08:01 Dose: 125 mcg Documented by: Magnesium Hydroxide (Milk Of Magnesia) 30 ml PO DAILY PRN PRN Reason: Heartburn Stop: 08/14/18 11:19 Metformin HCl (Glucophage) 1,500 mg PO QDD MERI Stop: 08/15/18 17:44 Last Admin: 07/16/18 17:26 Dose: 1,500 mg Documented by: Olanzapine (Zyprexa) 20 mg PO HS MERI Stop: 08/14/18 21:59 Last Admin: 07/15/18 20:55 Dose: 20 mg Documented by: Prazosin HCl (Prazosin Hcl) 1 mg PO HS PRN PRN Reason: nightmares Stop: 08/14/18 19:17 Sodium Chloride (Comal Nasal) 1 - 2 sprays NA PRN PRN PRN Reason: Nasal Dryness/Congestion Stop: 08/14/18 11:19 Vitamin D (Vitamin D3) 1,000 units PO DAILY MERI Stop: 08/14/18 14:59 Last Admin: 07/16/18 09:13 Dose: 1,000 units Documented by: Zolpidem Tartrate (Ambien) 10 mg PO HS PRN PRN Reason: Sleep Stop: 08/14/18 19:59 Post Discharge Appointments Primary Care Physician Name Of Family Doctor: Dr Nick Cast Primary Care Time of Appointment with PCP: follow up as needed. Provider Appointment Comment: [address], [place] [address] Psychiatrist Name of Psychiatrist: [facility] - Dr. Moore Psychiatrist's Date of Appointment with Psychiatrist: 07/20/18 Time of Appointment with Psychiatrist: 1pm Psychiatric Appointment Comment: [address], [place] [address] Therapist Name of Therapist: Ally Wynne PhD, [facility] Therapist's Date of Therapist Appointment: 07/21/18 Time of Therapist Appointment: 5pm Therapy Appointment Comment: [address] [place] [address] Transport Assistant Name of Transport Assistant: Renan CARRANZA Phone Number for Transport Assistant: Date of Appointment with Transport Assistant: 07/19/18 Time of Appointment with Transport Assistant: 07/19/18 at 1pm Second appt on 07/21/18 at 3pm Case Management Appointment Comment: [address], [place] [address] Partial or Psych Rehab Name of Partial or Psych Rehab: [facility] - Psych Rehab Phone Number of Partial or Psych Rehab: [phone] Date of Appointment at Partial or Psych Rehab: 07/21/18 Time of Appointment at Partial or Psych Rehab: 9:30am-4pm Partial or Psych Rehab Appointment Comment: [address] [place] [address] Contact Information Discharge Discharge Address: [address], [facility] [place] [address] CPT Code CPT Code 49489 (1) Bipolar disorder Active/Remission status: currently active Current bipolar episode type: depressed Current episode severity: severe Psychotic features: without psychotic features Qualified Code(s): F31.4 - Bipolar disorder, current episode depressed, severe, without psychotic features
[2018-07-16] MEDS: OLANZapine 10 MG TAB PO SCH (21:01)
[2018-07-17] MEDS: lamoTRIgine 25 MG TAB PO SCH ×2 (08:56→22:18)
[2018-07-17] MEDS: CHOLECALCIFEROL 1,000 UNITS TAB PO SCH (08:56)
[2018-07-17] MEDS: LEVOTHYROXINE SODIUM 125 MCG TABLET PO SCH (08:56)
[2018-07-17] MEDS: FLUOXETINE HCL 20 MG CAP PO SCH (08:56)
--- NOTE | 2018-07-17 11:42 | Psychiatric Progress Note ---
Date of Service July 17, 2018 Impression / Recommendations Impression The patient is a 48-year-old woman with a known diagnosis of bipolar disorder who was admitted because of worsening depression accompanied by suicidal ideation, suicidal plan and reported suicidal intent. The patient begins the evaluation today by telling me that she is chronically depressed and for many years did not carry a diagnosis of bipolar disorder because she had not had a manic or hypomanic episode. However, with time, she began to experience what probably would best be called hypomanic episodes that lasted approximately 4-6 weeks once or twice a year. She also has periods of time during which she has mixed hypomanic and depressed symptoms, but for most of the year she is depressed and rarely has any sustained periods of euthymia. She has availed herself of multiple psychiatric treatment, including a fairly extensive list of antidepressant medications, antipsychotic medications uses mood stabilizers, mood stabilizer such as lithium carbonate, and anticonvulsant such as carbamazepine and lamotrigine, as well as ECT, TMS, and ketamine (although, apparently, the ketamine was not used as an antidepressant). The patient indicates that she is generally been able to tolerate selective serotonin reuptake inhibitors, but they have not been particularly effective. She describes having undergone genetic testing for antidepressant selection and recalls that they were not many medications on her list of antidepressants that were expected to be effective at standard dosages. She indicates that she has had great difficulty tolerating antipsychotic medications, passed out and had a head injury while taking carbamazepine, had exaggerated coarse tremors on lithium, and has been unable to afford trials of certain other medications because of insurance coverage and financial assets. The patient cites a number of psychosocial stressors as being contributory to her current distress. These include the fact that her boyfriend, a clinical psychologist, is currently incarcerated, apparently for sexual offenses involving former patients, and the boyfriend was recently denied parole. The patient also has been dependent financially on disability benefits and her insurance agency recently indicated that they are considering disallowing further payments, at least pending an independent evaluation by 1 of their providers. The patient reports that she is under significant financial stress. She notes that she is chronically suicidal, but usually not while hypomanic. However, a recent hypomanic episode included attendant persistent suicidal thoughts which concerned her, and when the h ypomanic episode resolved and her depression returned her suicidal thoughts became even more pronounced, and she described herself as being "at the precipice" at the time of her current admission to the behavioral health unit. Her suicidal plan was to crash her car at high speed in a location that would not endanger other persons. In consultation with her outpatient psychiatrist, Dr. Carmel Moore we have been advised to consider increasing her dose of Prozac from 20 mg daily to a dose of 40 mg daily. (Prozac had been decreased during the most recent hypomanic episode, but in the past her Prozac dose has been as high as 60 mg daily, and the patient reports that Prozac is of some benefit in managing her depression, although the relief is described as being "only partial.") (1) Suicidal ideation: 07/15 - Admitted to a locked inpatient behavioral health unit, on q15 minute safety checks - Encourage medication initiation/adjustments as indicated - Encourage participation in group and recreational therapies - Gather collateral information from outpatient providers - Suggest family meeting to involve outpatient supports in safety planning - Arrange appropriate aftercare 07/16 -The patient reports ongoing suicidal thoughts. However, today she tells us that she no longer feels as if she is "standing on the precipice" and the suicid al thoughts are less intensive, less intrusive, and are not currently associated with an intent to act, at least not in the hospital. She does note that she is aware that she is still facing a number of psychosocial stressors in the community, and although she does not expect to achieve euthymia, she believes that she would like to have her level of depression improved prior to discharge, in order to mitigate risk. 07/17 -Suicidal ideation unchanged. States she fears she will not survive her disease. Continued hospitalization necessary at this time (2) Bipolar disorder: 07/15 - Coordinate care with patient's outpatient prescriber - reviewed recommendations personally with Dr. Moore - Will continue home medication regimen until able to discuss in further detail - Request outpatient records 07/16 -This is a very complex case given the patient's poor response to a number of pharmacologic and other interventions designed to treat depression and bipolar disorder, as well as difficulty tolerating a number of different interventions, and further complicated by a history of head injury and childhood emotional trauma. -She strongly identifies her major problem is being with depression. She describes hypomanic episodes that include symptoms such as increased energy, decreased desire for sleep, the ability to be motivated to get things done, but without engaging in dangerous or particularly impulsive behaviors. Her goal is to achieve sustained euthymia, but for her the more immediate concern is to find relief from depressiona problem that has been present since his latency. -The patient does indicate that she has responded to some degree to Prozac. Prozac had been decreased to a dose of 20 mg a day during the hypomanic episode that had recently occurred, and her outpatient provider is recommending that we increase the dose of Prozac to 40 mg a day. Accordingly, I have ordered Prozac to increase to 40 mg a day starting tomorrow. 07/17 -Prozac increased yesterday on recommendation of outpatient provider. She perceives historical benefit. Discussed potential alternative treatment options however treatment history complex and extensive. Will review available records as able before considering additional interventions. (3) Anxiety: 07/15 - Continue current medication regimen - Current presentation is predominantly related to mood disorder 07/16 - Hopefully, the increased dose of Prozac (referenced above) will assist in managing the patient's generalized anxiety. -The patient's anxiety is largely attributable to a number of complex psychosocial stressors (4) Hypothyroidism: 07/15 - Continue home dose of levothyroxine; TSH elevated in ED, Free T4 wnl Risk Factors Assessment Male: No : Yes Do You Have Access To A Gun?: No Health Problems: No Mental Health Diagnoses: Yes Substance Use Disorders: No Previous Attempt: No Family History of Suicide: No Previous Psychiatric Hospitalization: Yes Hopelessness: Yes Smoker: No Protective Factors Assessment Latter-Day Beliefs: Yes : No Responsible for Young Children: Yes Employed: No Stable Relationships: No Supportive Family: No Good Rapport with Provider: Yes Interval History Chief Complaint "I'm looking for some hope". Review of Systems Sleep Information Total Hours of Sleep: 7.25 Meal Information Percent Meal Consumed - Breakfast: 20 Percent Meal Consumed - Lunch: 100 Percent Meal Consumed - Dinner: 100 Subjective Subjective Patient was seen & assessed and interval progress reviewed with treatment team. Prozac increased yesterday after case review with her outpatient provider, Dr. Carmel Moore. Patient reports she has been hypomanic since April and then "crashed" last week. This occurred in the setting of some psychosocial stressors including her fianc being denied parole and then having her disability benefits under review which exacerbated chronic suicidal ideation. She reports active furtherance in looking up benefits for her auto insurance. She does not feel safe outside of the supervised setting presently. Describes feeling "exhausted" but did sleep adequately last night. Reviewed her recollection of many failed drug trials in the past. Has been on higher doses of both the Lamictal and olanzapine that she presently takes but was not able to tolerate the Lamictal secondary to dizziness and olanzapine has recently been tapered by her outpatient provider. She believes highest dose of Prozac in the past was 80 mg and she does not appreciate mood cycling or anish associated with antidepressant treatment historically. Physical Exam Psychiatric Orientation: alert and cooperative Apperance: + disheveled Eye Contact: + fair eye contact Motor Behavior: + tremor (diffuse) Speech: + pressured speech (increased rate. she feels at baseline) Affect: + depressed affect, + anxious affect and + constricted affect Mood: + depressed mood and + anxious mood Thought Process: goal directed thought process Thought Content: + hopelessness; no delusions Suicidal Thoughts: + reports suicidal thoughts Homicidal Thoughts: denies homicidal thoughts Cognition: language grossly intact Estimated Intelligence: average estimated intelligence Insight: + fair insight Judgement: + fair judgement Vital Signs (Past 24 Hours) Last Vital Signs Temp 36.7 C 07/17/18 06:51 Pulse 77 07/17/18 06:52 Resp 16 07/17/18 06:51 BP 107/75 07/17/18 06:52 Pulse Ox 99 07/15/18 11:53 Results & Data Current Inpatient Medications Current Inpatient Medications: Current Inpatient Medications Acetaminophen (Tylenol) 650 mg PO Q4H PRN PRN Reason: Headache or Minor Fever Stop: 08/14/18 11:19 Al Hydrox/Mg Hydrox/Simethicone (Maalox) 30 ml PO Q4H PRN PRN Reason: GI Upset Stop: 08/14/18 11:19 Bismuth Subsalicylate (Kaopectate) 15 ml PO PRN PRN PRN Reason: Loose Stool Stop: 08/14/18 11:19 Clonazepam (Klonopin) 0.5 mg PO DAILY PRN PRN Reason: Anxiety Stop: 08/14/18 19:17 Fluoxetine HCl (Prozac) 40 mg PO QAM [facility] Stop: 08/16/18 08:59 Last Admin: 07/17/18 08:56 Dose: 40 mg Documented by: Hydroxyzine HCl (Vistaril) 25 mg PO Q4H PRN PRN Reason: Anxiety Stop: 08/14/18 11:19 Hydroxyzine HCl (Vistaril) 50 mg PO HSZ PRN PRN Reason: Insomnia Stop: 08/14/18 11:19 Lamotrigine (Lamictal) 75 mg PO BID MERI Stop: 08/14/18 20:59 Last Admin: 07/17/18 08:56 Dose: 75 mg Documented by: Levothyroxine Sodium (Synthroid) 125 mcg PO DAILYBB MERI Stop: 08/14/18 14:59 Last Admin: 07/17/18 08:56 Dose: 125 mcg Documented by: Magnesium Hydroxide (Milk Of Magnesia) 30 ml PO DAILY PRN PRN Reason: Heartburn Stop: 08/14/18 11:19 Metformin HCl (Glucophage) 1,500 mg PO QDD MERI Stop: 08/15/18 17:44 Last Admin: 07/16/18 17:26 Dose: 1,500 mg Documented by: Olanzapine (Zyprexa) 20 mg PO HS MERI Stop: 08/14/18 21:59 Last Admin: 07/16/18 21:01 Dose: 20 mg Documented by: Prazosin HCl (Prazosin Hcl) 1 mg PO HS PRN PRN Reason: nightmares Stop: 08/14/18 19:17 Sodium Chloride ([place] Nasal) 1 - 2 sprays NA PRN PRN PRN Reason: Nasal Dryness/Congestion Stop: 08/14/18 11:19 Vitamin D (Vitamin D3) 1,000 units PO DAILY MERI Stop: 08/14/18 14:59 Last Admin: 07/17/18 08:56 Dose: 1,000 units Documented by: Zolpidem Tartrate (Ambien) 10 mg PO HS PRN PRN Reason: Sleep Stop: 08/14/18 19:59 Post Discharge Appointments Primary Care Physician Name Of Family Doctor: Dr Nick Cast Primary Care Time of Appointment with PCP: follow up as needed. Provider Appointment Comment: [address], [place] [address] Psychiatrist Name of Psychiatrist: [facility] [place] - Dr. Moore Psychiatrist's Date of Appointment with Psychiatrist: 07/20/18 Time of Appointment with Psychiatrist: 1pm Psychiatric Appointment Comment: [address], [place] [address] Therapist Name of Therapist: Ally Wynne PhD, [facility] Therapist's Date of Therapist Appointment: 07/21/18 Time of Therapist Appointment: 5pm Therapy Appointment Comment: [address] [place] [address] Straight Ruling Machine Operator Name of Straight Ruling Machine Operator: Renan CARRANZA Phone Number for Straight Ruling Machine Operator: Date of Appointment with Straight Ruling Machine Operator: 07/19/18 Time of Appointment with Straight Ruling Machine Operator: 07/19/18 at 1pm Second appt on 07/21/18 at 3pm Case Management Appointment Comment: [address], [place] [address] Partial or Psych Rehab Name of Partial or Psych Rehab: [facility] - Psych Rehab Phone Number of Partial or Psych Rehab: [phone] Date of Appointment at Partial or Psych Rehab: 07/21/18 Time of Appointment at Partial or Psych Rehab: 9:30am-4pm Partial or Psych Rehab Appointment Comment: [address] , [place] [address] Contact Information Discharge Discharge Address: [address] [place] [address] CPT Code CPT Code 57250 (1) Bipolar disorder Active/Remission status: currently active Current bipolar episode type: depressed Current episode severity: severe Psychotic features: without psychotic features Qualified Code(s): F31.4 - Bipolar disorder, current episode depressed, severe, without psychotic features
[2018-07-17] MEDS: METFORMIN HCL 500 MG TAB PO SCH (17:28)
[2018-07-17] MEDS: OLANZapine 10 MG TAB PO SCH (22:19)
[2018-07-18] MEDS: FLUOXETINE HCL 20 MG CAP PO SCH (08:30)
[2018-07-18] MEDS: CHOLECALCIFEROL 1,000 UNITS TAB PO SCH (08:30)
[2018-07-18] MEDS: lamoTRIgine 25 MG TAB PO SCH ×2 (08:30→21:17)
[2018-07-18] MEDS: LEVOTHYROXINE SODIUM 125 MCG TABLET PO SCH (08:30)
--- NOTE | 2018-07-18 11:50 | Psychiatric Progress Note ---
Date of Service July 18, 2018 Impression / Recommendations Impression Mood showing modest improvement today. Suicidal ideation becoming more passive. She is engaging effectively in psychotherapeutic programming. She expresses desire to discharge Thursday if possible secondary to parental responsibilities. She is willing to retrial low-dose lithium and we will proceed as below. (1) Suicidal ideation: 07/15 - Admitted to a locked inpatient behavioral health unit, on q15 minute safety checks - Encourage medication initiation/adjustments as indicated - Encourage participation in group and recreational therapies - Gather collateral information from outpatient providers - Suggest family meeting to involve outpatient supports in safety planning - Arrange appropriate aftercare 07/16 -The patient reports ongoing suicidal thoughts. However, today she tells us that she no longer feels as if she is "standing on the precipice" and the suicidal thoughts are less intensive, less intrusive, and are not currently associated with an intent to act, at least not in the hospital. She does note that she is aware that she is still facing a number of psychosocial stressors in the community, and although she does not expect to achieve euthymia, she believes that she would like to have her level of depression improved prior to discharge, in order to mitigate risk. 07/17 -Suicidal ideation unchanged. States she fears she will not survive her disease. Continued hospitalization necessary at this time 07/18 - becoming more passive but not yet able to contract for safety outside of the hospital (2) Bipolar disorder: 07/15 - Coordinate care with patient's outpatient prescriber - reviewed recommendations personally with Dr. Moore - Will continue home medication regimen until able to discuss in further detail - Request outpatient records 07/16 -This is a very complex case given the patient's poor response to a number of pharmacologic and other interventions designed to treat depression and bipolar disorder, as well as difficulty tolerating a number of different interventions, and further complicated by a history of head injury and childhood emotional trauma. -She strongly identifies her major problem is being with depression. She describes hypomanic episodes that include symptoms such as increased energy, decreased desire for sleep, the ability to be motivated to get things done, but without engaging in dangerous or particularly impulsive behaviors. Her goal is to achieve sustained euthymia, but for her the more immediate concern is to find relief from depressiona problem that has been present since his latency. -The patient does indicate that she has responded to some degree to Prozac. Prozac had been decreased to a dose of 20 mg a day during the hypomanic episode that had recently occurred, and her outpatient provider is recommending that we increase the dose of Prozac to 40 mg a day. Accordingly, I have ordered Prozac to increase to 40 mg a day starting tomorrow. 07/17 -Prozac increased yesterday on recommendation of outpatient provider. She perceives historical benefit. Discussed potential alternative treatment options however treatment history complex and extensive. Will review available records as able before considering additional interventions. 07/18 -Start lithium 150 mg p.o. nightly for gentle treatment of bipolar depression and anti-suicidal effects. Common risks and benefits reviewed and accepted by patient. She has a history of distressing tremor on lithium in the past at unknown dose. (3) Anxiety: 07/15 - Continue current medication regimen - Current presentation is predominantly related to mood disorder 07/16 - Hopefully, the increased dose of Prozac (referenced above) will assist in managing the patient's generalized anxiety. -The patient's anxiety is largely attributable to a number of complex psychosocial stressors (4) Hypothyroidism: 07/15 - Continue home dose of levothyroxine; TSH very mildly elevated in ED, Free T4 wnl - will need to recheck thyroid in 6 weeks or so for reassessment Risk Factors Assessment Male: No : Yes Do You Have Access To A Gun?: No Health Problems: No Mental Health Diagnoses: Yes Substance Use Disorders: No Previous Attempt: No Family History of Suicide: No Previous Psychiatric Hospitalization: Yes Hopelessness: Yes Smoker: No Protective Factors Assessment Christian Beliefs: Yes : No Responsible for Young Children: Yes Employed: No Stable Relationships: No Supportive Family: No Good Rapport with Provider: Yes Interval History Chief Complaint "I still do not want to be around, like I'd like a way out, but it is more passive". Review of Systems Sleep Information Total Hours of Sleep: 6.75 Meal Information Percent Meal Consumed - Breakfast: 95 Percent Meal Consumed - Lunch: 75 Percent Meal Consumed - Dinner: 100 Subjective Subjective Patient was seen & assessed and interval progress reviewed with Treatment Team. Patient described as appearing flat in her affect yesterday. Has been going to groups and participating actively. Compliant with medication. On interview, patient describes modest interval improvement. She denies active suicidal ideation but endorses continued passive suicidal ideation. She notes increased awareness regarding feelings of guilt associated with her chronic mental illness. She describes increased commitment to get better associated with responsibility to those whom she cares about and care about her. Again discusse d additional treatment options. She is unable to recall historical lithium dose that caused tremor. Reviewed negative history for kidney disease. EGFR within normal limits on admission. TSH was slightly elevated at 4.520 with normal free T4 at 1.03 on 07/14/2018. She is supplemented for hypothyroidism. Common risks and benefits associated with lithium reviewed. Patient was agreeable for low- dose retrial as, even an undetectable level may provide some therapeutic benefit regarding reducing her chronic suicidal ideation and we would certainly hope for additional mood benefit as well. Physical Exam Psychiatric Orientation: alert, oriented x 3 and cooperative Apperance: appropriately dressed and appropriately groomed Eye Contact: good eye contact Motor Behavior: steady gait and station and no abnormal motor movements Speech: normal rate/rhythm/volume of speech Affect: mood congruent with affect "a little better" Thought Process: goal directed thought process and linear/logical thought process Thought Content: + guilt Suicidal Thoughts: denies suicidal plan and denies suicidal intent; + reports suicidal thoughts Cognition: recent memory grossly intact Estimated Intelligence: average estimated intelligence Insight: + fair insight Judgement: + fair judgement Vital Signs (Past 24 Hours) Last Vital Signs Temp 36.6 C 07/18/18 06:00 Pulse 69 07/18/18 06:00 Resp 16 07/18/18 06:00 BP 110/77 07/18/18 06:30 Pulse Ox 99 07/15/18 11:53 Results & Data Current Inpatient Medications Current Inpatient Medications: Current Inpatient Medications Acetaminophen (Tylenol) 650 mg PO Q4H PRN PRN Reason: Headache or Minor Fever Stop: 08/14/18 11:19 Al Hydrox/Mg Hydrox/Simethicone (Maalox) 30 ml PO Q4H PRN PRN Reason: GI Upset Stop: 08/14/18 11:19 Bismuth Subsalicylate (Kaopectate) 15 ml PO PRN PRN PRN Reason: Loose Stool Stop: 08/14/18 11:19 Clonazepam (Klonopin) 0.5 mg PO DAILY PRN PRN Reason: Anxiety Stop: 08/14/18 19:17 Fluoxetine HCl (Prozac) 40 mg PO QAM [facility]I Stop: 08/16/18 08:59 Last Admin: 07/18/18 08:30 Dose: 40 mg Documented by: Hydroxyzine HCl (Vistaril) 25 mg PO Q4H PRN PRN Reason: Anxiety Stop: 08/14/18 11:19 Hydroxyzine HCl (Vistaril) 50 mg PO HSZ PRN PRN Reason: Insomnia Stop: 08/14/18 11:19 Lamotrigine (Lamictal) 75 mg PO BID MERI Stop: 08/14/18 20:59 Last Admin: 07/18/18 08:30 Dose: 75 mg Documented by: Levothyroxine Sodium (Synthroid) 125 mcg PO DAILYBB MERI Stop: 08/14/18 14:59 Last Admin: 07/18/18 08:30 Dose: 125 mcg Documented by: Magnesium Hydroxide (Milk Of Magnesia) 30 ml PO DAILY PRN PRN Reason: Heartburn Stop: 08/14/18 11:19 Metformin HCl (Glucophage) 1,500 mg PO QDD MERI Stop: 08/15/18 17:44 Last Admin: 07/17/18 17:28 Dose: 1,500 mg Documented by: Olanzapine (Zyprexa) 20 mg PO HS MERI Stop: 08/14/18 21:59 Last Admin: 07/17/18 22:19 Dose: 20 mg Documented by: Prazosin HCl (Prazosin Hcl) 1 mg PO HS PRN PRN Reason: nightmares Stop: 08/14/18 19:17 Sodium Chloride ([place] Nasal) 1 - 2 sprays NA PRN PRN PRN Reason: Nasal Dryness/Congestion Stop: 08/14/18 11:19 Vitamin D (Vitamin D3) 1,000 units PO DAILY MERI Stop: 08/14/18 14:59 Last Admin: 07/18/18 08:30 Dose: 1,000 units Documented by: Zolpidem Tartrate (Ambien) 10 mg PO HS PRN PRN Reason: Sleep Stop: 08/14/18 19:59 Post Discharge Appointments Primary Care Physician Name Of Family Doctor: Dr Nick Cast Primary Care Time of Appointment with PCP: follow up as needed. Provider Appointment Comment: [address], [place] [address] Psychiatrist Name of Psychiatrist: [facility] [place] - Dr. Moore Psychiatrist's Date of Appointment with Psychiatrist: 07/20/18 Time of Appointment with Psychiatrist: 1pm Psychiatric Appointment Comment: [address], [place] [address] Therapist Name of Therapist: Ally Wynne PhD, [facility] Therapist's Date of Therapist Appointment: 07/21/18 Time of Therapist Appointment: 5pm Therapy Appointment Comment: [address] [place] [address] Mandrel Cleaner Name of Mandrel Cleaner: Renan CARRANZA Phone Number for Mandrel Cleaner: Date of Appointment with Mandrel Cleaner: 07/19/18 Time of Appointment with Mandrel Cleaner: 07/19/18 at 1pm Second appt on 07/21/18 at 3pm Case Management Appointment Comment: [address] [facility], [place] [address] Partial or Psych Rehab Name of Partial or Psych Rehab: [facility] - Psych Rehab Phone Number of Partial or Psych Rehab: [phone] Date of Appointment at Partial or Psych Rehab: 07/21/18 Time of Appointment at Partial or Psych Rehab: 9:30am-4pm Partial or Psych Rehab Appointment Comment: [address] [place] [address] Contact Information Discharge Discharge Address: [address] [place] [address], [facility] [place] [address] CPT Code CPT Code 91660 (1) Bipolar disorder Active/Remission status: currently active Current bipolar episode type: depressed Current episode severity: severe Psychotic features: without psychotic features Qualified Code(s): F31.4 - Bipolar disorder, current episode depressed, severe, without psychotic features
[2018-07-18] MEDS: METFORMIN HCL 500 MG TAB PO SCH (17:24)
[2018-07-18] MEDS: OLANZapine 10 MG TAB PO SCH (21:17)
[2018-07-18] MEDS ORDERED: LITHIUM CARBONATE 300 MG TAB PO SCH (22:00)
[2018-07-19 06:37] VITALS: BP 122/75; TEMP 97.7
[2018-07-19] MEDS: lamoTRIgine 25 MG TAB PO SCH (08:39)
[2018-07-19] MEDS: FLUOXETINE HCL 20 MG CAP PO SCH (08:39)
[2018-07-19] MEDS: CHOLECALCIFEROL 1,000 UNITS TAB PO SCH (08:39)
[2018-07-19] MEDS: LEVOTHYROXINE SODIUM 125 MCG TABLET PO SCH (08:39)
--- NOTE | 2018-07-19 09:36 | Discharge Summary ---
Date of Service July 19, 2018 History of Present Illness Amy Reagan is a 48-year-old female admitted voluntarily for inpatient psychiatric admission due to worsening depressive symptoms and SI. Pt reports a diagnosis of bipolar disorder and generalized anxiety disorder. Pt states she had believed she was in a hypomanic state recently, which are often followed by depression. Pt reports her suicidality was more intense than usual, and she had a plan to wreck her car. Pt reports her suicidality is chronic; however, tends to be reduced significantly when she is experiencing hypomania. This episode, the suicidality persisted - worsening severely when the depression resumed. Pt states she had friends drive her to appointments to avoid her plan to wreck her car; when able, she would bring her dog with her to prevent acts of furtherance - she states, "I think all the time of what I could do, something that would hurt me but not anyone else." Pt states that she feels a lot of her struggles are related to "the illness itself", but admits to some recent additional stressors: financial concerns, preparation for buying a house, having her disability benefits questioned, and finding out that her fiance (who has been incarcerated for 3 years) was not granted parole. Pt reports depressive symptoms of increased desire for sleep, retreating to bed, isolative behavior, decreased energy, difficulty concentrating, increased appetite, worthlessness, believing she is a burden, and suicidality. Symptoms of anxiety include difficulty sleeping due to racing thoughts and trouble concentrating. Pt characterizes her hypomanic episodes as: limited need for sleep, excessive amount of energy, extreme goal-oriented behavior, rapid speech, racing thoughts, decreased appetite. Pt states, "I take advantage of those time to take care of everything I have to catch up on - especially since they only co me once or twice a year." Pt denies HI, SIB, A/V hallucinations, paranoia, OCD, PTSD, eating disorder, and other specific psychiatric symptoms. Physical Exam Psychiatric Orientation: alert, oriented x 3 and cooperative Apperance: appropriately dressed, appropriately groomed and appeared stated age Eye Contact: good eye contact Motor Behavior: steady gait and station and no abnormal motor movements Speech: normal rate/rhythm/volume of speech Affect: + blunted affect (not appearing as overtly depressed) Mood: + depressed mood (somewhat depressed, ); no anxious mood "I feel pretty good, the anish's behind me, so it will just be the depression for a while." Thought Process: goal directed thought process, linear/logical thought process and clear/coherent thought process Thought Content: reality based without delusions Suicidal Thoughts: denies suicidal thoughts and denies suicidal plan "I feel I've been able to back away from the toyin, change my perspective." Homicidal Thoughts: denies homicidal thoughts Hallucinations: no auditory hallucinations and no visual hallucinations Cognition: recent memory grossly intact, remote memory grossly intact, attention grossly intact and language grossly intact Estimated Intelligence: consistent with education level Insight: good insight Judgement: good judgement Vital Signs (Past 24 Hours) Last Vital Signs Temp 36.5 C 07/19/18 06:00 Pulse 98 H 07/19/18 06:37 Resp 18 07/19/18 06:00 BP 122/75 07/19/18 06:37 Pulse Ox 99 07/15/18 11:53 Principal Diagnosis Bipolar disorder, most recent episode depressed; generalized anxiety disorder Psychiatric Data 48-year-old female admitted voluntarily for inpatient psychiatric treatment upon recommendation from her outpatient therapist. Mental health evaluation was recommended due to reports of worsening depressive symptoms and suicidality. Patient has a history of bipolar disorder and generalized anxiety disorder and has current established outpatient providers. Patient reports a "classic presentation" of bipolar disorder, and reports that she had recently been experiencing a manic episode. Historically, the patient notices depression following anish and was concerned about the severity of her suicidal ideation. Patient reports on admission that she had been considering crashing her car in order to end her life. On admission patient reports a significant history of psychiatric medication trials. Patient was continued on her outpatient medication regimen, with fluoxetine being titrated to target her current depressive symptoms. Patient had shown improvement in mood and was interactive with her peers in the milieu. Patient was also agreeable to retrial a low dose of lithium, with hopes of targeting her chronic suicidality. At time of discharge, patient was responding well to medication changes and was denying suicidal thoughts. Patient had admitted that episodes of suicidality was chronic for her, but was able to contract for safety outside the hospital setting. During the patient's hospitalization she participated in group and recreational therapies. Patient was agreeable for communication with outpatient supports. Aftercare appointments with established psychiatric providers were rescheduled for a timely manner post discharge. Patient was encouraged to have a family meeting, which was declined. At time of discharge, the patient states that she is more hopeful and requests to be discharged home in order to make an appointment scheduled with her adult protective caseworker. During her admission, the patient had completed a safety plan which was personally reviewed by this provider. Patient is able to identify triggers that lead to worsening mood or suicidality, and was able to verbalize to this provider several effective coping strategies that she has been able to refined here on the unit. Patient is requesting discharge today, denying suicidal thoughts, reporting a decent mood, and is able to contract for safety outside of the hospital. Patient is making plans to move to [place], buy a house, spend a week with her son, and other plans suggesting significant future orientation. Patient seems appropriate for discharge to home, with recommendation for ongoing outpatient psychiatric follow-up. Day of Discharge Assessment Patient's case was reviewed and discussed during treatment team. Staff reports that the patient has been out of her room more frequently through the weekend, displays a brighter affect, and is more interactive with peers. Patient was seen today to assess readiness for discharge. Patient states her mood is "pretty good, but tired." Patient states she was able to catch up on some much needed rest during her hospitalization, in addition to attending groups. Patient states that she is not currently suicidal, and feels this hospitalization was successful in allowing her to "back off the toyin, pulled back, give me a chance to change my views." Patient states that she has regained hope and is looking forward to plans following discharge. Patient states that she is planning for a friend to come and pick her up to take her back to her residence. She also reports that her ex- is leaving for vacation, which will allow her to spend the next week with her son - which she is looking forward to. Patient reports an overall improvement in mood. Medication adjustments have reportedly been helpful, and she states she has been tolerating them. We reviewed recommendation the patient speak with her psychiatric prescriber tomorrow regarding her dose of lithium. Patient was offered a lab order to check the level; however, we reviewed that her prescriber may suggest a different time frame if ongoing titration should be pursued. Patient was understanding of this explanation, and states she will discuss further at her appointment. Patient denies any specific concerns regarding discharge and states she is excitedly anxious to return home. Patient is requesting discharge today in order to attend an appointment with her adult protective caseworker. Based on review of the patient's case and current presentation, she seems appropriate for discharge to home. Patient does not appear to be at acute risk of harm to self, and it was recommended that she follow-up with her outpatient psychiatric providers. ROS: Constitutional: reports mild fatigue Cardiovascular: denied Respiratory: denied Gastrointestinal: denied Neurological: denied Psychiatric: denies symptoms other than stated above Total of at least 10 systems reviewed, pertinent positives as above and in HPI. Transition of Care Transition Of Care Record: was reviewed with the patient Advance Directives Advance Directives Information Provided: No (pt. suicidal) Advance Directives: No Mental Health Advance Directive: No Advance Directives on File: No Living Will: No Power of Mixer Helper: No Advance Directives Reason:: Declines as Mental Health Visit. Risk Factors Assessment Presenting risk factors reviewed on discharge. Precipitating stressors mitigated by: admission for inpatient psychiatric observation and treatment, appropriate adjustments to medications to target symptoms, attendance of therapeutic treatment groups, development of healthy and effective coping strategies, treatment of medical conditions and education on diagnoses. Pt has demonstrated improvement in condition with regard to reduction of suicidal thoughts. Pt is requesting discharge and is no longer at acute risk of harm to themselves or others. Pt will be discharged with recommendation for ongoing outpatient psychiatric treatment with established providers. Pt is at increased risk of harm to self or others when compared to the general population and there are several risk factors which are not likely to be mitigated in an inpatient treatment setting. She severity of her condition as well as reports of a long history of episodic SI puts her at higher risk of harm to self overall. She does have established outpatient providers and a decent support system she would not desire to hurt, which she sees as protective factors. Male: No : Yes Do You Have Access To A Gun?: No Health Problems: No Mental Health Diagnoses: Yes Substance Use Disorders: No Previous Attempt: No Family History of Suicide: No Previous Psychiatric Hospitalization: Yes Hopelessness: Yes Smoker: No Protective Factors Assessment Hindu Beliefs: Yes : No Responsible for Young Children: Yes Employed: No Stable Relationships: No Supportive Family: No Good Rapport with Provider: Yes Tobacco Cessation at Discharge Tobacco Cessation Medication Prescribed at Discharge: Not Applicable/Non-Smoker Total Time Total Time Spent: Greater Than 30 Minutes Total Time Includes: Examination of the patient, Discharge Planning, Medication Reconciliation and Communication with other providers Discharge Data Consultations 07/15/18 11:48 ED Decision to Admit Stat Lab Results 07/14/18 07/14/18 07/14/18 20:11 20:11 20:11 WBC 4.79 L RBC 4.54 Hgb 13.8 Hct 40.8 MCV 89.9 MCH 30.4 MCHC 33.8 RDW Std Deviation 45.1 RDW Coeff of Krystle 13.6 Plt Count 363 MPV 9.7 Immature Gran % (Auto) 0.0 Neut % (Auto) 46.7 Lymph % (Auto) 42.8 [place] % (Auto) 6.5 Eos % (Auto) 3.8 Baso % (Auto) 0.2 Immature Gran # (Auto) 0.00 Neut # (Auto) 2.24 Lymph # (Auto) 2.05 [place] # (Auto) 0.31 Eos # (Auto) 0.18 Baso # (Auto) 0.01 Sodium 136 Potassium 4.2 Chloride 103 Carbon Dioxide 27 Anion Gap 7.0 BUN 5 L Creatinine 0.71 Est Cr Clr Drug Dosing 119.3 Est GFR ( Amer) 116.7 Est GFR (Non-Af Amer) 100.7 BUN/Creatinine Ratio 7.6 L Glucose 77 Calcium 9.2 Total Bilirubin 0.3 AST 16 ALT 20 Alkaline Phosphatase 77 Total Protein 7.5 Albumin 3.9 Globulin 3.6 Albumin/Globulin Ratio 1.1 TSH 4.520 H Free T4 1.03 Urine Color Urine Appearance Urine pH Ur Specific [place] Urine Protein Urine Glucose (UA) Urine Ketones Urine Blood Urine Nitrite Urine Bilirubin Urine Urobilinogen Ur Leukocyte Esterase Urine WBC (Auto) Urine RBC (Auto) U Hyaline Cast (Auto) U Epithel Cells (Auto) Urine Bacteria (Auto) Urine RBC Urine WBC Ur Epithelial Cells Urine Bacteria POC Ur Test Salicylates < 1.7 L Urine Opiates Screen Ur Methadone, Qual Acetaminophen < 2 L Urine Barbiturates Ur Phencyclidine (PCP) U Amphetamin/Meth Scrn MDMA (Ecstasy) Screen U Benzodiazepines Scrn Ur Cocaine Metabolite U Marijuana (THC) Screen Ethyl Alcohol mg/dL 07/14/18 07/14/18 07/14/18 20:11 20:54 20:54 WBC RBC Hgb Hct MCV MCH MCHC RDW Std Deviation RDW Coeff of Krystle Plt Count MPV Immature Gran % (Auto) Neut % (Auto) Lymph % (Auto) [place] % (Auto) Eos % (Auto) Baso % (Auto) Immature Gran # (Auto) Neut # (Auto) Lymph # (Auto) [place] # (Auto) Eos # (Auto) Baso # (Auto) Sodium Potassium Chloride Carbon Dioxide Anion Gap BUN Creatinine Est Cr Clr Drug Dosing Est GFR ( Amer) Est GFR (Non-Af Amer) BUN/Creatinine Ratio Glucose Calcium Total Bilirubin AST ALT Alkaline Phosphatase Total Protein Albumin Globulin Albumin/Globulin Ratio TSH Free T4 Urine Color Yellow Urine Appearance Cloudy A Urine pH 5.5 Ur Specific [place] 1.010 Urine Protein Negative Urine Glucose (UA) Negative Urine Ketones Negative Urine Blood Negative Urine Nitrite Negative Urine Bilirubin Negative Urine Urobilinogen Negative Ur Leukocyte Esterase Negative Urine WBC (Auto) 1-5 Urine RBC (Auto) 0-4 U Hyaline Cast (Auto) 0 U Epithel Cells (Auto) >30 H Urine Bacteria (Auto) 1+ H Urine RBC Not Reportable Urine WBC Not Reportable Ur Epithelial Cells Not Reportable Urine Bacteria Not Reportable POC Ur Test Salicylates Urine Opiates Screen Neg Ur Methadone, Qual Neg Acetaminophen Urine Barbiturates Neg Ur Phencyclidine (PCP) Neg U Amphetamin/Meth Scrn Neg MDMA (Ecstasy) Screen Neg U Benzodiazepines Scrn Neg Ur Cocaine Metabolite Neg U Marijuana (THC) Screen Neg Ethyl Alcohol mg/dL 90.2 H 07/14/18 20:54 WBC RBC Hgb Hct MCV MCH MCHC RDW Std Deviation RDW Coeff of Krystle Plt Count MPV Immature Gran % (Auto) Neut % (Auto) Lymph % (Auto) [place] % (Auto) Eos % (Auto) Baso % (Auto) Immature Gran # (Auto) Neut # (Auto) Lymph # (Auto) [place] # (Auto) Eos # (Auto) Baso # (Auto) Sodium Potassium Chloride Carbon Dioxide Anion Gap BUN Creatinine Est Cr Clr Drug Dosing Est GFR ( Amer) Est GFR (Non-Af Amer) BUN/Creatinine Ratio Glucose Calcium Total Bilirubin AST ALT Alkaline Phosphatase Total Protein Albumin Globulin Albumin/Globulin Ratio TSH Free T4 Urine Color Urine Appearance Urine pH Ur Specific [place] Urine Protein Urine Glucose (UA) Urine Ketones Urine Blood Urine Nitrite Urine Bilirubin Urine Urobilinogen Ur Leukocyte Esterase Urine WBC (Auto) Urine RBC (Auto) U Hyaline Cast (Auto) U Epithel Cells (Auto) Urine Bacteria (Auto) Urine RBC Urine WBC Ur Epithelial Cells Urine Bacteria POC Ur Test NEG Salicylates Urine Opiates Screen Ur Methadone, Qual Acetaminophen Urine Barbiturates Ur Phencyclidine (PCP) U Amphetamin/Meth Scrn MDMA (Ecstasy) Screen U Benzodiazepines Scrn Ur Cocaine Metabolite U Marijuana (THC) Screen Ethyl Alcohol mg/dL Hospital Course (1) Suicidal ideation: 07/15 - Admitted to a locked inpatient behavioral health unit, on q15 minute safety checks - Encourage medication initiation/adjustments as indicated - Encourage participation in group and recreational therapies - Gather collateral information from outpatient providers - Suggest family meeting to involve outpatient supports in safety planning - Arrange appropriate aftercare 07/16 -The patient reports ongoing suicidal thoughts. However, today she tells us that she no longer feels as if she is "standing on the precipice" and the suicidal thoughts are less intensive, less intrusive, and are not currently associated with an intent to act, at least not in the hospital. She does note that she is aware that she is still facing a number of psychosocial stressors in the community, and although she does not expect to achieve euthymia, she believes that she would like to have her level of depression improved prior to discharge, in order to mitigate risk. 07/17 -Suicidal ideation unchanged. States she fears she will not survive her disease. Continued hospitalization necessary at this time 07/18 - becoming more passive but not yet able to contract for safety outside of the hospital (2) Bipolar disorder: 07/15 - Coordinate care with patient's outpatient prescriber - reviewed recommendations personally with Dr. Moore - Will continue home medication regimen until able to discuss in further detail - Request outpatient records 07/16 -This is a very complex case given the patient's poor response to a number of pharmacologic and other interventions designed to treat depression and bipolar disorder, as well as difficulty tolerating a number of different interventions, and further complicated by a history of head injury and childhood emotional trauma. -She strongly identifies her major problem is being with depression. She describes hypomanic episodes that include symptoms such as increased energy, decreased desire for sleep, the ability to be motivated to get things done, but without engaging in dangerous or particularly impulsive behaviors. Her goal is to achieve sustained euthymia, but for her the more immediate concern is to find relief from depressiona problem that has been present since his latency. -The patient does indicate that she has responded to some degree to Prozac. Prozac had been decreased to a dose of 20 mg a day during the hypomanic episode that had recently occurred, and her outpatient provider is recommending that we increase the dose of Prozac to 40 mg a day. Accordingly, I have ordered Prozac to increase to 40 mg a day starting tomorrow. 07/17 -Prozac increased yesterday on recommendation of outpatient provider. She perceives historical benefit. Discussed potential alternative treatment options however treatment history complex and extensive. Will review available records as able before considering additional interventions. 07/18 -Start lithium 150 mg p.o. nightly for gentle treatment of bipolar depression and anti-suicidal effects. Common risks and benefits reviewed and accepted by patient. She has a history of distressing tremor on lithium in the past at unknown dose. (3) Anxiety: 07/15 - Continue current medication regimen - Current presentation is predominantly related to mood disorder 07/16 - Hopefully, the increased dose of Prozac (referenced above) will assist in managing the patient's generalized anxiety. -The patient's anxiety is largely attributable to a number of complex psychosocial stressors (4) Hypothyroidism: 07/15 - Continue home dose of levothyroxine; TSH very mildly elevated in ED, Free T4 wnl - will need to recheck thyroid in 6 weeks or so for reassessment Post Discharge Appointments Primary Care Physician Name Of Family Doctor: Dr Nick Amanda - [facility] Time of Appointment with PCP: follow up as needed. Provider Appointment Comment: [address], [place] [address] Psychiatrist Name of Psychiatrist: [facility] - Dr. Moore Psychiatrist's Date of Appointment with Psychiatrist: 07/20/18 Time of Appointment with Psychiatrist: 1pm Psychiatric Appointment Comment: [address], [place] [address] Therapist Name of Therapist: Ally Wynne PhD, [facility] Therapist's Date of Therapist Appointment: 07/21/18 Time of Therapist Appointment: 5pm Therapy Appointment Comment: [address] [place] [address] Echometer Engineer Name of Echometer Engineer: Renan CARRANZA Phone Number for Echometer Engineer: Date of Appointment with Echometer Engineer: 07/19/18 Time of Appointment with Echometer Engineer: 07/19/18 at 1pm Second appt on 07/21/18 at 3pm Case Management Appointment Comment: [address], [place] [address] Partial or Psych Rehab Name of Partial or Psych Rehab: [facility] - Psych Re[facility] Phone Number of Partial or Psych Rehab: [phone] Date of Appointment at Partial or Psych Rehab: 07/21/18 Time of Appointment at Partial or Psych Rehab: 9:30am-4pm Partial or Psych Rehab Appointment Comment: [address] [place] [address] Smoking Cessation Counseling Tobacco Cessation Medication Prescribed at Discharge: Not Applicable/Non-Smoker Contact Information Discharge Discharge Address: [address] [place], [place] [address] [id number] Discharge Plan Discharge Items Patient Disposition: Home - Self-Care Reason For Visit: SEVERE DEPRESSION Discharge Diagnosis: Bipolar disorder; anxiety Condition: Good Discharge Goals: Decrease discomfort, Improve disease control, Improve function, Increase independence, Learn about illness and Therapeutic intervention Activity: Resume your previous activity Non-emergency contact: Primary Care Provider, Psychiatrist, Therapist and Supervisor Lead [employer]inery Call non-emergency contact if: you have any medication questions and your symptoms worsen Follow-up/Referrals: Nick Amanda MD [Primary Care Provider] - Diet: Regular Addtl Provider Instructions: SPECIAL CARE INSTRUCTIONS: 1. Follow through with your scheduled aftercare appointments. If unable to keep an appointment, please call to reschedule. 2. Take your medication only as prescribed. Medication should not be changed or stopped without the approval of your doctor. In the event of worsening symptoms or concerns about side effects, contact your doctor immediately. 3. Utilize new healthy coping skills, anger management skills, and stress management skills learned during your hospitalization. Journal feelings and process them with a support person. Identify stressors or situations that may result in relapse, deterioration or inappropriate behaviors and develop a plan to deal with those issues. 4. If your coping skills are ineffective and you are in crisis, contact your outpatient providers for direction. If unable to reach your providers, please call the CAN HELP LINE AT or go to the closest Emergency Room. 5. Avoid alcohol and un-prescribed drugs. 6. You have been provided with the Mental Health Advance Directives Pamphlet for your review. AFTERCARE APPOINTMENTS: * Please call your insurance company prior to your scheduled appointment to confirm your aftercare providers are covered. Take your insurance information to your appointments. * Follow-up with outpatient psychiatrist for lithium level order. WHO TO CALL AND WHEN: Medical Emergencies: For questions or emergencies related to your hospital stay, please contact the Inpatient Behavioral Health Unit at [phone]. A appraisal technician is on-call 22/09 for the Behavioral Health Unit for emergencies At any time you feel your situation is an emergency, you may also call 911 immediately. Your Doctors Instructions noted above were prepared by provider Genia Vo PA-C. Prescriptions: New lithium carbonate 150 mg capsule 150 mg PO HS 30 Days Qty: 30 RF: 0 fluoxetine 40 mg capsule 40 mg PO QAM 30 Days Qty: 30 RF: 0 Continued metformin 500 mg Tablet 1,500 mg PO DAILY RF: 0 prazosin 1 mg Capsule 1 mg PO HS PRN (Reason: nightmares) RF: 0 clonazepam [Klonopin] 0.5 mg Tablet 0.5 mg PO DAILY PRN (Reason: Anxiety) RF: 0 levothyroxine [Synthroid] 125 mcg Tablet 125 mcg PO DAILY RF: 0 zolpidem [Ambien CR] 12.5 mg Tablet,Ext Release Multiphase 12.5 mg PO HS PRN (Reason: Insomnia) RF: 0 cholecalciferol (vitamin D3) [Vitamin D3] 1,000 unit Tablet 1,000 mg PO DAILY RF: 0 lamotrigine 150 mg Tablet 75 mg PO BID RF: 0 olanzapine 5 mg Tablet 20 mg PO HS RF: 0 cyanocobalamin (vitamin B-12) 1,000 mcg/mL Solution 1,000 mcg IM MONTHLY RF: 0 Discontinued fluoxetine 10 mg Capsule 20 mg PO DAILY RF: 0 Stand-Alone Forms: [facility] Discharge Orders: Discharge Order (Routine); Ordered 07/19/18 Ordered By: Genia Vo Admission Data Admit Date/Time: 07/15/18 11:20 Attending Provider: Dylon Rushing Admit Provider: Nancy Varma Primary Care Provider: Nick Amanda Other Providers: Nancy Varma Service: Psychiatry Other Interventions: Discharge Summary Assessment (RN) Last Done: 07/19/18 10:07 PSY Interdisciplinary Discharge Planning Last Done: 07/19/18 10:21 Pending Studies at Discharge: No (none ordered on discharge ) Studies:: Follow up with outpatient psychiatrist for lithium level order - as dose may be titrated further. DC Date/Time DO NOT enter until pt leaves facility: 07/19/18 11:46
[2018-07-19 09:49] VITALS: PULSE 69
== END 2018-07-19 11:46 | disposition home or self-care (01) | DRG 885 ==
LOC: ED 19:24 → 3S 07-15 11:20

== ENCOUNTER 2019-07-21 08:13 | Inpatient (IN) ==
[2019-07-21] MEDS ORDERED: LORazepam 1 MG TAB PO STA (08:51)
--- NOTE | 2019-07-21 09:13 | Emergency Department Note ---
Impression & Plan Bipolar disorder, Anxiety, Hyponatremia, Post-concussion headache ED Provider Note NAME: ANA ROSA PRAKASH AGE: 49 SEX: F : 1970 ARRIVES VIA: Walk-In INFORMANT: Patient, ED PROVIDER(S): Eddie Ansari DO CHIEF COMPLAINT: Anxiety and insomnia HPI: The patient is a 49-year-old female who recently was admitted to [facility] for mental health problems. The patient has been having problems with insomnia and severe anxiety. She has multiple stressors in her life which include family members significant others as well as her own health. She states that she did have a fall recently where she struck her head. She has been seen by multiple providers but states that she is not had a CT of the head obtained yet. The patient denies any specific suicidal homicidal ideation. She does complain of severe insomnia. She states that she is also hypomanic at this time. The patient is very well versed in her medical condition. She does have a primary therapist as well as her primary psychiatrist but has not seen them recently for these complaints. She states them she was discharged from [facility] she was feeling somewhat improved. She denies having any nausea or vomiting at this time. She does complain of headache intermittently. She has no visual complaints. She has known diarrhea or vomiting. She is had no fever or exposures to COVID-19 as far she knows. The patient states her symptoms are very severe at this time. She is very concerned but does not feel that she requires inpatient admission at this time. ROS: See above HPI for pertinent positives & negatives. A total of 10 systems reviewed and were otherwise negative. PAST MEDICAL HISTORY: See Below PAST SURGICAL HISTORY: See Below FAMILY HISTORY: See Below SOCIAL HISTORY: See Below HOME MEDICATIONS: See Below ALLERGIES: See Below VITALS: See Below PHYSICAL EXAMINATION: GENERAL: The patient is awake and alert. She is somewhat anxious appearing and appears to be guarded. EYES: The conjunctivae are clear. The pupils are round and reactive. Periorbital ecchymosis was noted on the left eye. EARS, NOSE, MOUTH AND THROAT: The nose is without any evidence of any deformity. Mucous membranes are moist. NECK: The neck is nontender and supple. RESPIRATORY: Normal respiratory effort is noted there is no evidence of wheezing rhonchi or rales CARDIOVASCULAR: Regular rate and rhythm noted there no murmurs rubs or gallops normal S1 normal S2. GASTROINTESTINAL: The abdomen is soft. Abdomen is nontender. MUSCULOSKELETAL/EXTREMITIES: There is no evidence of gross deformity full range of motion is noted in the hips and shoulders. SKIN: There is no obvious evidence of any rash. There are no petechiae, pallor or cyanosis noted. NEUROLOGIC: Patient is awake alert and oriented x3 strength is symmetric patellar reflexes are 2+ bilaterally PSYCH: The patient is awake and alert. She appears somewhat anxious. She makes poor eye contact for most of the evaluation. She has a very tangential thought process and shifts topics quickly. The patient is currently denying any suicidal homicidal ideation. MEDICAL DECISION MAKING: The patient is a 49-year-old female who presented to the emergency department for an evaluation of mental health problems. The patient has been having problems with bipolar disorder. She has had no specific changes in her medicati ons but she was recently admitted to [facility] for mental health problems. She was feeling much better but started to continue with insomnia. She is been very anxious. The patient presented to the emergency department today for further evaluation but was not feeling that she needed inpatient psychiatric care. The patient was medically cleared in the emergency department but she was found to have a very low sodium. On further questioning the patient does admit to drinking lots of water because she felt that she might be dehydrated. The patient was placed on a ekg monitor. She was placed on a fluid restriction at this time. Because of her findings I discussed her condition with the on- call [facility] hospitalist group. They have agreed to evaluate the patient in the emergency department for further management and disposition. Triage Nursing notes reviewed. Prior medical records reviewed Vital Signs: reviewed and remarkable for hypertension Differential diagnosis: Mood disorder, infection, hypoglycemia, electrolyte abnormalities, cardiac sources, intracerebral event, toxicologic, trauma, neurologic, as well as other pathologies. ER treatment provided: See below Diagnostics interpreted by me: ECG: EKG was obtained in the emergency department. My interpretation is normal sinus rhythm at 85 bpm. There is no ectopy. There is no acute ST segment abnor malities noted. This was compared to a tracing from September 18, 2018. No significant changes were noted. Cardiac Monitoring: An order was placed for continuous cardiac monitoring. The monitor shows a rate of 95 with sinus rhythm. Laboratory studies: As stated above and show below. Imaging studies: See below Consultation(s): I discussed this case with Cinthia Aguilera who is on-call for the [facility] hospitalist group. They have agreed to evaluate the patient in the emergency department for further management and disposition. 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 Beliefs That Will Affect Care: None marital status: Current Living Situation: Alone current occupational status: disabled Feels Safe at Home: Yes Smoking Status: Never smoker Allergies Allergies Allergy/AdvReac Type Severity Reaction Status Date / Time codeine Allergy Intermediate ABD CRAMPS Verified 09/23/18 01:21 Penicillins Allergy Unknown HAPPENED Verified 09/23/18 01:21 A CHILD Home Meds Home Medications Medication Instructions Recorded Confirmed cholecalciferol (vitamin D3) 1,000 mg PO DAILY 06/02/18 07/21/19 [Vitamin D3] levothyroxine [Synthroid] 125 mcg PO DAILY 06/02/18 07/21/19 cyanocobalamin (vitamin B-12) 1,000 mcg IM MONTHLY 06/09/18 07/21/19 ketorolac 10 mg PO Q6 PRN 09/15/18 07/21/19 meclizine 25 mg PO TID PRN 09/15/18 07/21/19 metformin 1,500 mg PO BID 09/15/18 07/21/19 phenazopyridine [Azo Urinary Pain 99.5 - 199 mg PO .2-3 X DAY PRN 09/23/18 07/21/19 Relief] amitriptyline 50 mg PO HS 07/21/19 07/21/19 clonazepam 0.5 mg PO BID PRN 07/21/19 07/21/19 cyclobenzaprine 10 mg PO HS PRN 07/21/19 07/21/19 ferrous sulfate 325 mg PO BID 07/21/19 07/21/19 fluoxetine 60 mg PO DAILY 07/21/19 07/21/19 hydrochlorothiazide 25 mg PO DAILY PRN 07/21/19 07/21/19 hydroxyzine pamoate 25 mg PO Q6 PRN 07/21/19 07/21/19 memantine 10 mg PO BID 07/21/19 07/21/19 phentermine 15 mg PO DAILY 07/21/19 07/21/19 potassium chloride [Klor-Con M20] 20 meq PO DAILY PRN 07/21/19 07/21/19 prazosin 2 mg PO HS 07/21/19 07/21/19 promethazine 25 mg PO Q6 PRN 07/21/19 07/21/19 propranolol 10 mg PO BID 07/21/19 07/21/19 sulfamethoxazole-trimethoprim 800 tab PO BID 07/21/19 07/21/19 sulfamethoxazole-trimethoprim 800 tab PO BID 07/21/19 07/21/19 ziprasidone HCl 80 mg PO HS 07/21/19 07/21/19 Results & Data (ED) Vital Signs Vital Signs - 24 hr 07/21/19 08:25 07/21/19 10:19 07/21/19 13:08 Temperature 37.4 C Temperature Source Oral Pulse Rate 100 H Pulse Rate [Right Finger] 82 95 H Respiratory Rate 20 18 18 Respiratory Effort / Characteristics Non-Labored Spontaneous Non-Labored Spontaneous Non-Labored Spontaneous Respiratory Depth Normal Normal Normal Respiratory Pattern Regular Blood Pressure 155/96 H Blood Pressure [Right Arm] 131/92 142/99 H Blood Pressure Mean 115 Blood Pressure Mean [Right Arm] 105 113 Blood Pressure Position [Right Arm] Standing Pulse Oximetry 97 99 95 Oxygen Delivery Method Room Air Room Air Sepsis Recent Fever Within 48 Hours No Sepsis New/Unexplained Change in Mental Status No Sepsis Action Taken by Nursing No Action Required Laboratory Data Result diagrams: 07/21/19 09:34 07/21/19 09:34 Lab Results 07/21/19 07/21/19 07/21/19 Range/Units 09:00 09:00 09:00 WBC (4.8-10.8) K/uL RBC (4.2-5.4) M/uL Hgb (12.0-16.0) g/dL Hct (37-47) % MCV (80-100) fL MCH (25-34) pg MCHC (32-36) g/dL RDW Std Deviation (36.4-46.3) fL RDW Coeff of Krystle (11.5-14.5) % Plt Count (130-400) K/uL MPV (7.4-10.4) fL Immature Gran % (Auto) % Neut % (Auto) % Lymph % (Auto) % [place] % (Auto) % Eos % (Auto) % Baso % (Auto) % Immature Gran # (Auto) (0.00-0.02) K/uL Neut # (Auto) (1.4-6.5) K/uL Lymph # (Auto) (1.2-3.4) K/uL [place] # (Auto) (0.11-0.59) K/uL Eos # (Auto) (0-0.5) K/uL Baso # (Auto) (0-0.2) K/uL Sodium (136-145) mmol/L Potassium (3.5-5.1) mmol/L Chloride (98-107) mmol/L Carbon Dioxide (21-32) mmol/L Anion Gap (3-11) BUN (7-18) mg/dl Creatinine (0.6-1.2) mg/dl Est Cr Clr Drug Dosing Est GFR ( Amer) Est GFR (Non-Af Amer) BUN/Creatinine Ratio (10-20) Glucose (70-99) mg/dl Osmolality (280-300) mOsm/kg Calcium (8.5-10.1) mg/dl Total Bilirubin (0.2-1) mg/dl AST (15-37) U/L ALT (12-78) U/L Alkaline Phosphatase (45-117) U/L Total Protein (6.4-8.2) gm/dl Albumin (3.4-5.0) gm/dl Globulin (2.5-4.0) gm/dl Albumin/Globulin Ratio (0.9-2) TSH (0.300-4.500) uIu/ml HCG, Qual (Negative) Urine Color Yellow Urine Appearance Clear (Clear) Urine pH 7.0 (4.5-7.5) Ur Specific [place] 1.006 (1.000-1.030) Urine Protein Negative (Negative) Urine Glucose (UA) Negative (Negative) Urine Ketones Negative (Negative) Urine Blood Negative (Negative) Urine Nitrite Negative (Negative) Urine Bilirubin Negative (Negative) Urine Urobilinogen Negative (Negative) Ur Leukocyte Esterase Negative (Negative) Urine Osmolality 111 L (500-800) mOsm/kg Ur Random Sodium mmol/L Salicylates (2.8-20) mg/dl Urine Opiates Screen Neg (Neg) Ur Methadone, Qual Neg (Neg) Acetaminophen (10-30) ug/ml Urine Barbiturates Neg (Neg) Ur Phencyclidine (PCP) Neg (Neg) U Amphetamin/Meth Scrn Neg (Neg) MDMA (Ecstasy) Screen Neg (Neg) U Benzodiazepines Scrn Neg (Neg) Ur Cocaine Metabolite Neg (Neg) U Marijuana (THC) Screen Neg (Neg) Ethyl Alcohol mg/dL (0-3) mg/dl 07/21/19 07/21/19 07/21/19 Range/Units 09:00 09:34 09:34 WBC 2.88 L (4.8-10.8) K/uL RBC 3.77 L (4.2-5.4) M/uL Hgb 12.2 (12.0-16.0) g/dL Hct 35.3 L (37-47) % MCV 93.6 (80-100) fL MCH 32.4 (25-34) pg MCHC 34.6 (32-36) g/dL RDW Std Deviation 51.9 H (36.4-46.3) fL RDW Coeff of Krystle 15.3 H (11.5-14.5) % Plt Count 360 (130-400) K/uL MPV 9.4 (7.4-10.4) fL Immature Gran % (Auto) 0.0 % Neut % (Auto) 43.1 % Lymph % (Auto) 40.6 % [place] % (Auto) 11.1 % Eos % (Auto) 4.9 % Baso % (Auto) 0.3 % Immature Gran # (Auto) 0.00 (0.00-0.02) K/uL Neut # (Auto) 1.24 L (1.4-6.5) K/uL Lymph # (Auto) 1.17 L (1.2-3.4) K/uL [place] # (Auto) 0.32 (0.11-0.59) K/uL Eos # (Auto) 0.14 (0-0.5) K/uL Baso # (Auto) 0.01 (0-0.2) K/uL Sodium 128 L (136-145) mmol/L Potassium 3.5 (3.5-5.1) mmol/L Chloride 95 L (98-107) mmol/L Carbon Dioxide 25 (21-32) mmol/L Anion Gap 8.0 (3-11) BUN 7 (7-18) mg/dl Creatinine 0.87 (0.6-1.2) mg/dl Est Cr Clr Drug Dosing Not Reportable Est GFR ( Amer) 90.7 Est GFR (Non-Af Amer) 78.2 BUN/Creatinine Ratio 7.5 L (10-20) Glucose 78 (70-99) mg/dl Osmolality (280-300) mOsm/kg Calcium 8.9 (8.5-10.1) mg/dl Total Bilirubin 0.4 (0.2-1) mg/dl AST 23 (15-37) U/L ALT 22 (12-78) U/L Alkaline Phosphatase 64 (45-117) U/L Total Protein 8.2 (6.4-8.2) gm/dl Albumin 4.2 (3.4-5.0) gm/dl Globulin 4.0 (2.5-4.0) gm/dl Albumin/Globulin Ratio 1.1 (0.9-2) TSH 2.890 (0.300-4.500) uIu/ml HCG, Qual (Negative) Urine Color Urine Appearance (Clear) Urine pH (4.5-7.5) Ur Specific [place] (1.000-1.030) Urine Protein (Negative) Urine Glucose (UA) (Negative) Urine Ketones (Negative) Urine Blood (Negative) Urine Nitrite (Negative) Urine Bilirubin (Negative) Urine Urobilinogen (Negative) Ur Leukocyte Esterase (Negative) Urine Osmolality (500-800) mOsm/kg Ur Random Sodium 21 mmol/L Salicylates (2.8-20) mg/dl Urine Opiates Screen (Neg) Ur Methadone, Qual (Neg) Acetaminophen (10-30) ug/ml Urine Barbiturates (Neg) Ur Phencyclidine (PCP) (Neg) U Amphetamin/Meth Scrn (Neg) MDMA (Ecstasy) Screen (Neg) U Benzodiazepines Scrn (Neg) Ur Cocaine Metabolite (Neg) U Marijuana (THC) Screen (Neg) Ethyl Alcohol mg/dL (0-3) mg/dl 07/21/19 07/21/19 07/21/19 Range/Units 09:34 09:34 09:34 WBC (4.8-10.8) K/uL RBC (4.2-5.4) M/uL Hgb (12.0-16.0) g/dL Hct (37-47) % MCV (80-100) fL MCH (25-34) pg MCHC (32-36) g/dL RDW Std Deviation (36.4-46.3) fL RDW Coeff of Krystle (11.5-14.5) % Plt Count (130-400) K/uL MPV (7.4-10.4) fL Immature Gran % (Auto) % Neut % (Auto) % Lymph % (Auto) % [place] % (Auto) % Eos % (Auto) % Baso % (Auto) % Immature Gran # (Auto) (0.00-0.02) K/uL Neut # (Auto) (1.4-6.5) K/uL Lymph # (Auto) (1.2-3.4) K/uL [place] # (Auto) (0.11-0.59) K/uL Eos # (Auto) (0-0.5) K/uL Baso # (Auto) (0-0.2) K/uL Sodium (136-145) mmol/L Potassium (3.5-5.1) mmol/L Chloride (98-107) mmol/L Carbon Dioxide (21-32) mmol/L Anion Gap (3-11) BUN (7-18) mg/dl Creatinine (0.6-1.2) mg/dl Est Cr Clr Drug Dosing Est GFR ( Amer) Est GFR (Non-Af Amer) BUN/Creatinine Ratio (10-20) Glucose (70-99) mg/dl Osmolality (280-300) mOsm/kg Calcium (8.5-10.1) mg/dl Total Bilirubin (0.2-1) mg/dl AST (15-37) U/L ALT (12-78) U/L Alkaline Phosphatase (45-117) U/L Total Protein (6.4-8.2) gm/dl Albumin (3.4-5.0) gm/dl Globulin (2.5-4.0) gm/dl Albumin/Globulin Ratio (0.9-2) TSH (0.300-4.500) uIu/ml HCG, Qual Negative (Negative) Urine Color Urine Appearance (Clear) Urine pH (4.5-7.5) Ur Specific [place] (1.000-1.030) Urine Protein (Negative) Urine Glucose (UA) (Negative) Urine Ketones (Negative) Urine Blood (Negative) Urine Nitrite (Negative) Urine Bilirubin (Negative) Urine Urobilinogen (Negative) Ur Leukocyte Esterase (Negative) Urine Osmolality (500-800) mOsm/kg Ur Random Sodium mmol/L Salicylates < 1.7 L (2.8-20) mg/dl Urine Opiates Screen (Neg) Ur Methadone, Qual (Neg) Acetaminophen < 2 L (10-30) ug/ml Urine Barbiturates (Neg) Ur Phencyclidine (PCP) (Neg) U Amphetamin/Meth Scrn (Neg) MDMA (Ecstasy) Screen (Neg) U Benzodiazepines Scrn (Neg) Ur Cocaine Metabolite (Neg) U Marijuana (THC) Screen (Neg) Ethyl Alcohol mg/dL < 3.0 (0-3) mg/dl 07/21/19 Range/Units 09:34 WBC (4.8-10.8) K/uL RBC (4.2-5.4) M/uL Hgb (12.0-16.0) g/dL Hct (37-47) % MCV (80-100) fL MCH (25-34) pg MCHC (32-36) g/dL RDW Std Deviation (36.4-46.3) fL RDW Coeff of Krystle (11.5-14.5) % Plt Count (130-400) K/uL MPV (7.4-10.4) fL Immature Gran % (Auto) % Neut % (Auto) % Lymph % (Auto) % [place] % (Auto) % Eos % (Auto) % Baso % (Auto) % Immature Gran # (Auto) (0.00-0.02) K/uL Neut # (Auto) (1.4-6.5) K/uL Lymph # (Auto) (1.2-3.4) K/uL [place] # (Auto) (0.11-0.59) K/uL Eos # (Auto) (0-0.5) K/uL Baso # (Auto) (0-0.2) K/uL Sodium (136-145) mmol/L Potassium (3.5-5.1) mmol/L Chloride (98-107) mmol/L Carbon Dioxide (21-32) mmol/L Anion Gap (3-11) BUN (7-18) mg/dl Creatinine (0.6-1.2) mg/dl Est Cr Clr Drug Dosing Est GFR ( Amer) Est GFR (Non-Af Amer) BUN/Creatinine Ratio (10-20) Glucose (70-99) mg/dl Osmolality 266 L (280-300) mOsm/kg Calcium (8.5-10.1) mg/dl Total Bilirubin (0.2-1) mg/dl AST (15-37) U/L ALT (12-78) U/L Alkaline Phosphatase (45-117) U/L Total Protein (6.4-8.2) gm/dl Albumin (3.4-5.0) gm/dl Globulin (2.5-4.0) gm/dl Albumin/Globulin Ratio (0.9-2) TSH (0.300-4.500) uIu/ml HCG, Qual (Negative) Urine Color Urine Appearance (Clear) Urine pH (4.5-7.5) Ur Specific [place] (1.000-1.030) Urine Protein (Negative) Urine Glucose (UA) (Negative) Urine Ketones (Negative) Urine Blood (Negative) Urine Nitrite (Negative) Urine Bilirubin (Negative) Urine Urobilinogen (Negative) Ur Leukocyte Esterase (Negative) Urine Osmolality (500-800) mOsm/kg Ur Random Sodium mmol/L Salicylates (2.8-20) mg/dl Urine Opiates Screen (Neg) Ur Methadone, Qual (Neg) Acetaminophen (10-30) ug/ml Urine Barbiturates (Neg) Ur Phencyclidine (PCP) (Neg) U Amphetamin/Meth Scrn (Neg) MDMA (Ecstasy) Screen (Neg) U Benzodiazepines Scrn (Neg) Ur Cocaine Metabolite (Neg) U Marijuana (THC) Screen (Neg) Ethyl Alcohol mg/dL (0-3) mg/dl Administered Medications Discontinued Medications Ketorolac Tromethamine (Toradol) Confirm Administered Dose 60 mg .ROUTE .STK-MED ONE Stop: 07/21/19 09:46 Last Admin: 07/21/19 09:59 Dose: Not Given Documented by: [id number] Ketorolac Tromethamine (Toradol) 60 mg IM NOW STA Stop: 07/21/19 09:51 Last Admin: 07/21/19 09:57 Dose: 60 mg Documented by: [id number] Lorazepam (Ativan) 1 mg PO NOW STA Stop: 07/21/19 08:52 Last Admin: 07/21/19 09:55 Dose: 1 mg Documented by: [id number] Promethazine HCl (Phenergan) Confirm Administered Dose 25 mg .ROUTE .STK-MED ONE Stop: 07/21/19 09:47 Last Admin: 07/21/19 09:58 Dose: Not Given Documented by: [id number] Promethazine HCl (Phenergan) 25 mg PO NOW ONE Stop: 07/21/19 09:51 Last Admin: 07/21/19 09:55 Dose: 25 mg Documented by: [id number] Discharge Plan Visit Data Chief Complaint: Mental Health Evaluation Stated Complaint: BIPOLAR, MANIC DISORDER, INSOMNIA ED Provider: Eddie Ansari Discharge Problem: Bipolar disorder, Anxiety, Hyponatremia, Post-concussion headache Forms Stand Alone Forms: [facility], Suicide Prevention Resources Prescriptions Prescriptions: No Action levothyroxine [Synthroid] 125 mcg Tablet 125 mcg PO DAILY RF: 0 cholecalciferol (vitamin D3) [Vitamin D3] 1,000 unit Tablet 1,000 mg PO DAILY RF: 0 cyanocobalamin (vitamin B-12) 1,000 mcg/mL Solution 1,000 mcg IM MONTHLY RF: 0 metformin 750 mg tablet extended release 24 hr 1,500 mg PO BID RF: 0 ketorolac 10 mg tablet 10 mg PO Q6 PRN (Reason: Pain) RF: 0 meclizine 25 mg tablet 25 mg PO TID PRN (Reason: Dizziness) RF: 0 Azo Urinary Pain Relief 99.5 mg Tablet 99.5 - 199 mg PO .2-3 X DAY PRN (Reason: URINARY PAIN) RF: 0 promethazine 25 mg tablet 25 mg PO Q6 PRN (Reason: Vomiting) RF: 0 hydroxyzine pamoate 25 mg capsule 25 mg PO Q6 PRN (Reason: Anxiety) RF: 0 clonazepam 0.5 mg tablet 0.5 mg PO BID PRN (Reason: Anxiety) RF: 0 sulfamethoxazole-trimethoprim 800-160 mg tablet 800 tab PO BID RF: 0 sulfamethoxazole-trimethoprim 800-160 mg tablet 800 tab PO BID RF: 0 propranolol 10 mg tablet 10 mg PO BID RF: 0 prazosin 2 mg capsule 2 mg PO HS RF: 0 cyclobenzaprine 10 mg tablet 10 mg PO HS PRN (Reason: Muscle Spasm) RF: 0 phentermine 15 mg capsule 15 mg PO DAILY RF: 0 potassium chloride [Klor-Con M20] 20 mEq tablet,ER particles/crystals 20 meq PO DAILY PRN (Reason: Hypokalemia) RF: 0 amitriptyline 25 mg tablet 50 mg PO HS RF: 0 ferrous sulfate 325 mg (65 mg iron) tablet 325 mg PO BID RF: 0 hydrochlorothiazide 25 mg tablet 25 mg PO DAILY PRN (Reason: Edema) RF: 0 ziprasidone HCl 40 mg capsule 80 mg PO HS RF: 0 fluoxetine 20 mg capsule 60 mg PO DAILY RF: 0 memantine 10 mg tablet 10 mg PO BID RF: 0 Discharge Problem: Bipolar disorder Qualifiers: Active/Remission status: remission status unspecified Qualified Code(s): F31.9 - Bipolar disorder, unspecified
[2019-07-21] MEDS ORDERED: KETOROLAC TROMETHAMINE 60 MG/2 ML VIAL ONE (09:45)
[2019-07-21] MEDS ORDERED: PROMETHAZINE HCL 25 MG TAB ONE (09:46)
[2019-07-21 09:49] LABS: Appearance Urine Clear (Clear); Bilirubin Urine Negative (Negative); Blood Urine Negative (Negative); Color Urine Yellow; Glucose Urine UA Negative (Negative); Ketones Urine Negative (Negative); Leukocyte Esterase Urine Negative (Negative); Nitrite Urine Negative (Negative); Protein Urine Negative (Negative); Specific Gravity Urine 1.006 (1.000-1.030); Urobilinogen Urine Negative (Negative)
[2019-07-21] MEDS ORDERED: KETOROLAC TROMETHAMINE 60 MG/2 ML VIAL IM STA (09:50)
[2019-07-21] MEDS ORDERED: PROMETHAZINE HCL 25 MG TAB PO ONE (09:50)
[2019-07-21 10:00] LABS: Basophils # (auto) 0.01 K/uL (0-0.2); Basophils % (auto) 0.3 %; Eosinophils # (auto) 0.14 K/uL (0-0.5); Eosinophils % (auto) 4.9 %; Hematocrit (blood only) 35.3 % (37-47); Hemoglobin 12.2 g/dL (12.0-16.0); Lymphocytes # (auto) 1.17 K/uL (1.2-3.4); Lymphocytes % (auto) 40.6 %; Mean Corpuscular Hemoglobin 32.4 pg (25-34); Mean Corpuscular Hgb Conc 34.6 g/dL (32-36); Mean Corpuscular Volume 93.6 fL (80-100); Mean Platelet Volume 9.4 fL (7.4-10.4); Monocytes # (auto) 0.32 K/uL (0.11-0.59); Monocytes % (auto) 11.1 %; Neutrophils # (auto) 1.24 K/uL (1.4-6.5); Neutrophils % (auto) 43.1 %; Platelet Count 360 K/uL (130-400); RDW Coefficient of Variation 15.3 % (11.5-14.5); RDW Standard Deviation 51.9 fL (36.4-46.3); Red Blood Count 3.77 M/uL (4.2-5.4); White Blood Count 2.88 K/uL (4.8-10.8)
[2019-07-21 10:19] LABS: Acetaminophen < 2 ug/ml (10-30); Alanine Aminotransferase 22 U/L (12-78); Albumin Level 4.2 gm/dl (3.4-5.0); Aspartate Aminotransferase 23 U/L (15-37); BUN Creatinine Ratio 7.5 (10-20); Blood Urea Nitrogen 7 mg/dl (7-18); Calcium 8.9 mg/dl (8.5-10.1); Carbon Dioxide 25 mmol/L (21-32); Chloride 95 mmol/L (98-107); Est GFR (African American) 90.7; Est GFR (Non-African American) 78.2; Glucose 78 mg/dl (70-99); Potassium 3.5 mmol/L (3.5-5.1); Salicylate < 1.7 mg/dl (2.8-20); Sodium 128 mmol/L (136-145)
[2019-07-21 10:21] LABS: Amphetamines+Metham, Urine Neg (Neg); Barbiturates, Urine Neg (Neg); Benzodiazepine, Urine Neg (Neg); Cocaine, Urine Neg (Neg); MDMA (Ecstacy), Urine Neg (Neg); Methadone, Urine Neg (Neg); Opiate, Urine Neg (Neg); Phencyclidine, Urine Neg (Neg)
[2019-07-21 10:30] LABS: Albumin Globulin Ratio 1.1 (0.9-2); Alkaline Phosphatase 64 U/L (45-117); Bilirubin,Total 0.4 mg/dl (0.2-1); Total Protein 8.2 gm/dl (6.4-8.2)
[2019-07-21 10:37] LABS: Pregnancy Test, Serum Negative (Negative)
--- NOTE | 2019-07-21 12:06 | CT Scan Report ---
CT OF THE HEAD WITHOUT CONTRAST CLINICAL HISTORY: Fall. COMPARISON STUDY: Head CT July 31, 2018. MRI of the brain September 20, 2018. CT DOSE: 614.27 mGy.cm TECHNIQUE: Helical axial images of the head were obtained without IV contrast. Automated exposure con trol was utilized for the study. A dose lowering technique was utilized adhering to the principles o f ALARA. FINDINGS: No acute intracranial hemorrhage, midline shift or mass effect is present. The ventricular system is unremarkable. The basilar cisterns are patent. No extra-axial collections are present. Ther e are no findings to suggest acute dural sinus thrombosis or acute territorial infarct. No significan t calvarial abnormalities are present. Visualized portions of the sinuses and mastoid air cells are c lear. IMPRESSION: 1. No acute intracranial findings. 2. No calvarial fracture. ACT 112: Negative or not required by law. Electronically signed by: Asim Noriega M.D. 07/21/2019 12:05 PM
--- NOTE | 2019-07-21 14:07 | History & Physical Report ---
Date of Service July 21, 2019 Assessment & Plan (1) Hyponatremia: This is a 49yo F with a PMH of Bipolar I disorder and hypothyroidism who presents with worsening anxiety and insomnia who was found to have hyponatremia. -Na of 128, was 132 at time of discharge from [facility] on 07/18. 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 -Fluid restrict to 1.2 L daily -Routine nephro consult -Daily BMP (2) Acute insomnia: (3) Bipolar 1 disorder, manic, mild: In setting of hypomania, per patient -Continue home regimen for sleep, bipolar disorder of Elavil, Prozac, Klonopin, Geodon -Would benefit from a medication reassessment from psych service in setting of 2 recent hospital admissions and now hyponatremia -Routine psych consult placed (4) Post-concussion headache: CT head without acute abnormalities -Toradol, tylenol PRN (5) Anxiety: Continue Prozac, Klonopin PRN, Vistaril PRN (6) Hypothyroidism: TSH wnl -Continue levothyroxine DVT Ppx: SCDs Code status: FULL PCP: [facility] Dispo: Admit to med tele. Discharge planning ordered. Patient seen in collaboration with Dr. Munson. Please see addendum. History of Present Illness Primary Care Provider: Nick Amanda MD This is a 49yo F with a PMH of Bipolar I disorder and hypothyroidism who presents with worsening anxiety and insomnia. Patient was recently admitted to [facility] from 07/15-07/18 for worsening depression and suicidal thoughts. 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 States that she has had multiple concussions in the recent past. Has also been caring for charlene's elderly parents. All of the stress caused her to "flip from suicidal to hypomania" and patient has been suffering from insomnia and racing thoughts. During time at [place], patient was told she was dehydrated and has dramatically increased fluid intake since then. Has also been suffering from postconcussive headaches but they are improved with Toradol. Denies any confusion, nausea or vomiting. No chest pain, shortness of breath, abdominal pain, dysuria, diarrhea or constipation. Denies any medication changes during recent admission but with worsening anxiety, was prescribed Vistaril yesterday and has taken it twice. Also just completed course of Bactr im for UTI. Patient does endorse visual/auditory hallucinations that are new but are nonthreatening in nature. Denies any SI/HI. Allergies Allergy/AdvReac Type Severity Reaction Status Date / Time codeine Allergy Intermediate ABD CRAMPS Verified 09/23/18 01:21 Penicillins Allergy Unknown HAPPENED Verified 09/23/18 01:21 A CHILD Home Medications Home Medications Medication Instructions Recorded Confirmed Type cholecalciferol (vitamin D3) 1,000 mg PO DAILY 06/02/18 07/21/19 History [Vitamin D3] levothyroxine [Synthroid] 125 mcg PO DAILY 06/02/18 07/21/19 History cyanocobalamin (vitamin B-12) 1,000 mcg IM MONTHLY 06/09/18 07/21/19 History ketorolac 10 mg PO Q6 PRN 09/15/18 07/21/19 History meclizine 25 mg PO TID PRN 09/15/18 07/21/19 History metformin 1,500 mg PO BID 09/15/18 07/21/19 History phenazopyridine [Azo Urinary Pain 99.5 - 199 mg PO .2-3 X DAY PRN 09/23/18 07/21/19 History Relief] amitriptyline 50 mg PO HS 07/21/19 07/21/19 History clonazepam 0.5 - 1 mg PO HS PRN 07/21/19 07/21/19 History clonazepam 0.5 mg PO BID PRN 07/21/19 07/21/19 History cyclobenzaprine 10 mg PO HS PRN 07/21/19 07/21/19 History ferrous sulfate 325 mg PO BID 07/21/19 07/21/19 History fluoxetine 60 mg PO DAILY 07/21/19 07/21/19 History hydrochlorothiazide 25 mg PO DAILY PRN 07/21/19 07/21/19 History hydroxyzine pamoate 25 mg PO Q6 PRN 07/21/19 07/21/19 History memantine 10 mg PO BID 07/21/19 07/21/19 History phentermine 15 mg PO DAILY 07/21/19 07/21/19 History potassium chloride [Klor-Con M20] 20 meq PO DAILY PRN 07/21/19 07/21/19 History prazosin 2 mg PO HS 07/21/19 07/21/19 History promethazine 25 mg PO Q6 PRN 07/21/19 07/21/19 History propranolol 10 mg PO BID 07/21/19 07/21/19 History sulfamethoxazole-trimethoprim 800 tab PO BID 07/21/19 07/21/19 History ziprasidone HCl 80 mg PO HS 07/21/19 07/21/19 History Past Med/Surg History Medical History (Updated 07/21/19 @ 16:02 by Cinthia Aguilera PA-C) Acute insomnia Anxiety (Chronic) Anxiety (Chronic) Bipolar disorder (Inactive) Depression (Chronic) Status post electroconvulsive therapy Surgical History History of gastric bypass Hx of cholecystectomy Family History Other Cancer Diabetes Gallbladder disease Heart disease Lung disease Social History Preferred Language: Maltese Communication Ability: Effective 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 Physical Exam Physical Exam: General Appearance: WD/WN, vitals as above, NAD, sitting up in bed, pressured speech Head: normocephalic, atraumatic Eyes: +ecchymosis under L eye, PERRL, conjunctivae normal, anicteric sclerae ENT: external ear and nose normal, oropharynx normal Neck: trachea midline, no thyromegaly normal visual inspection Respiratory: normal respiratory effort, lungs clear to auscultation, no wheeze, rales, rhonchi. Normal insp/exp effort, no accessory muscle use Cardiovascular: regular rate, rhythm, no murmur, normal peripheral pulses. Vessels: no JVD or carotid bruit Chest: normal inspection of chest Abdomen/GI: normal bowel sounds, soft, nontender, no hepatosplenomegaly Extremities/Musculoskeletal: no cyanosis or clubbing, extremities motor strength 5/5 Neurologic: PERRL, EOMI, accommodation nl, no dysarthria, CN's II-XI intact bilaterally and moves all extremities. +bilateral hand tremors Psychiatric: A+Ox3, + pressured speech, able to follow conversation appropriately Skin: no rashes, normal color, warm/dry Results & Data Results & Data ([facility]) Vital Signs (Past 12 Hours) Vital Signs Temp Pulse Pulse Resp BP BP Pulse Ox 07/21/19 13:08 95 H 18 142/99 H 95 07/21/19 10:19 82 18 131/92 99 07/21/19 08:25 37.4 C 100 H 20 155/96 H 97 Laboratory Results Short CBC 07/21/19 07/21/19 07/21/19 Range/Units 09:00 09:00 09:00 WBC (4.8-10.8) K/uL RBC (4.2-5.4) M/uL Hgb (12.0-16.0) g/dL Hct (37-47) % MCV (80-100) fL MCH (25-34) pg MCHC (32-36) g/dL RDW Std Deviation (36.4-46.3) fL RDW Coeff of Krystle (11.5-14.5) % Plt Count (130-400) K/uL MPV (7.4-10.4) fL Immature Gran % (Auto) % Neut % (Auto) % Lymph % (Auto) % Braxton % (Auto) % Eos % (Auto) % Baso % (Auto) % Immature Gran # (Auto) (0.00-0.02) K/uL Neut # (Auto) (1.4-6.5) K/uL Lymph # (Auto) (1.2-3.4) K/uL Braxton # (Auto) (0.11-0.59) K/uL Eos # (Auto) (0-0.5) K/uL Baso # (Auto) (0-0.2) K/uL Sodium (136-145) mmol/L Potassium (3.5-5.1) mmol/L Chloride (98-107) mmol/L Carbon Dioxide (21-32) mmol/L Anion Gap (3-11) BUN (7-18) mg/dl Creatinine (0.6-1.2) mg/dl Est Cr Clr Drug Dosing Est GFR ( Amer) Est GFR (Non-Af Amer) BUN/Creatinine Ratio (10-20) Glucose (70-99) mg/dl Osmolality (280-300) mOsm/kg Calcium (8.5-10.1) mg/dl Total Bilirubin (0.2-1) mg/dl AST (15-37) U/L ALT (12-78) U/L Alkaline Phosphatase (45-117) U/L Troponin I (0-0.045) ng/ml Total Protein (6.4-8.2) gm/dl Albumin (3.4-5.0) gm/dl Globulin (2.5-4.0) gm/dl Albumin/Globulin Ratio (0.9-2) TSH (0.300-4.500) uIu/ml HCG, Qual (Negative) Urine Color Yellow Urine Appearance Clear (Clear) Urine pH 7.0 (4.5-7.5) Ur Specific [place] 1.006 (1.000-1.030) Urine Protein Negative (Negative) Urine Glucose (UA) Negative (Negative) Urine Ketones Negative (Negative) Urine Blood Negative (Negative) Urine Nitrite Negative (Negative) Urine Bilirubin Negative (Negative) Urine Urobilinogen Negative (Negative) Ur Leukocyte Esterase Negative (Negative) Urine Osmolality 111 L (500-800) mOsm/kg Ur Random Sodium mmol/L Salicylates (2.8-20) mg/dl Urine Opiates Screen Neg (Neg) Ur Methadone, Qual Neg (Neg) Acetaminophen (10-30) ug/ml Urine Barbiturates Neg (Neg) Ur Phencyclidine (PCP) Neg (Neg) U Amphetamin/Meth Scrn Neg (Neg) MDMA (Ecstasy) Screen Neg (Neg) U Benzodiazepines Scrn Neg (Neg) Ur Cocaine Metabolite Neg (Neg) U Marijuana (THC) Screen Neg (Neg) Ethyl Alcohol mg/dL (0-3) mg/dl 07/21/19 07/21/1920 Range/Units 09:00 09:34 09:34 WBC 2.88 L (4.8-10.8) K/uL RBC 3.77 L (4.2-5.4) M/uL Hgb 12.2 (12.0-16.0) g/dL Hct 35.3 L (37-47) % MCV 93.6 (80-100) fL MCH 32.4 (25-34) pg MCHC 34.6 (32-36) g/dL RDW Std Deviation 51.9 H (36.4-46.3) fL RDW Coeff of Krystle 15.3 H (11.5-14.5) % Plt Count 360 (130-400) K/uL MPV 9.4 (7.4-10.4) fL Immature Gran % (Auto) 0.0 % Neut % (Auto) 43.1 % Lymph % (Auto) 40.6 % Braxton % (Auto) 11.1 % Eos % (Auto) 4.9 % Baso % (Auto) 0.3 % Immature Gran # (Auto) 0.00 (0.00-0.02) K/uL Neut # (Auto) 1.24 L (1.4-6.5) K/uL Lymph # (Auto) 1.17 L (1.2-3.4) K/uL Braxton # (Auto) 0.32 (0.11-0.59) K/uL Eos # (Auto) 0.14 (0-0.5) K/uL Baso # (Auto) 0.01 (0-0.2) K/uL Sodium 128 L (136-145) mmol/L Potassium 3.5 (3.5-5.1) mmol/L Chloride 95 L (98-107) mmol/L Carbon Dioxide 25 (21-32) mmol/L Anion Gap 8.0 (3-11) BUN 7 (7-18) mg/dl Creatinine 0.87 (0.6-1.2) mg/dl Est Cr Clr Drug Dosing Not Reportable Est GFR ( Amer) 90.7 Est GFR (Non-Af Amer) 78.2 BUN/Creatinine Ratio 7.5 L (10-20) Glucose 78 (70-99) mg/dl Osmolality (280-300) mOsm/kg Calcium 8.9 (8.5-10.1) mg/dl Total Bilirubin 0.4 (0.2-1) mg/dl AST 23 (15-37) U/L ALT 22 (12-78) U/L Alkaline Phosphatase 64 (45-117) U/L Troponin I (0-0.045) ng/ml Total Protein 8.2 (6.4-8.2) gm/dl Albumin 4.2 (3.4-5.0) gm/dl Globulin 4.0 (2.5-4.0) gm/dl Albumin/Globulin Ratio 1.1 (0.9-2) TSH 2.890 (0.300-4.500) uIu/ml HCG, Qual (Negative) Urine Color Urine Appearance (Clear) Urine pH (4.5-7.5) Ur Specific [place] (1.000-1.030) Urine Protein (Negative) Urine Glucose (UA) (Negative) Urine Ketones (Negative) Urine Blood (Negative) Urine Nitrite (Negative) Urine Bilirubin (Negative) Urine Urobilinogen (Negative) Ur Leukocyte Esterase (Negative) Urine Osmolality (500-800) mOsm/kg Ur Random Sodium 21 mmol/L Salicylates (2.8-20) mg/dl Urine Opiates Screen (Neg) Ur Methadone, Qual (Neg) Acetaminophen (10-30) ug/ml Urine Barbiturates (Neg) Ur Phencyclidine (PCP) (Neg) U Amphetamin/Meth Scrn (Neg) MDMA (Ecstasy) Screen (Neg) U Benzodiazepines Scrn (Neg) Ur Cocaine Metabolite (Neg) U Marijuana (THC) Screen (Neg) Ethyl Alcohol mg/dL (0-3) mg/dl 07/21/19 07/21/19 07/21/19 Range/Units 09:34 09:34 09:34 WBC (4.8-10.8) K/uL RBC (4.2-5.4) M/uL Hgb (12.0-16.0) g/dL Hct (37-47) % MCV (80-100) fL MCH (25-34) pg MCHC (32-36) g/dL RDW Std Deviation (36.4-46.3) fL RDW Coeff of Krystle (11.5-14.5) % Plt Count (130-400) K/uL MPV (7.4-10.4) fL Immature Gran % (Auto) % Neut % (Auto) % Lymph % (Auto) % Braxton % (Auto) % Eos % (Auto) % Baso % (Auto) % Immature Gran # (Auto) (0.00-0.02) K/uL Neut # (Auto) (1.4-6.5) K/uL Lymph # (Auto) (1.2-3.4) K/uL Braxton # (Auto) (0.11-0.59) K/uL Eos # (Auto) (0-0.5) K/uL Baso # (Auto) (0-0.2) K/uL Sodium (136-145) mmol/L Potassium (3.5-5.1) mmol/L Chloride (98-107) mmol/L Carbon Dioxide (21-32) mmol/L Anion Gap (3-11) BUN (7-18) mg/dl Creatinine (0.6-1.2) mg/dl Est Cr Clr Drug Dosing Est GFR ( Amer) Est GFR (Non-Af Amer) BUN/Creatinine Ratio (10-20) Glucose (70-99) mg/dl Osmolality (280-300) mOsm/kg Calcium (8.5-10.1) mg/dl Total Bilirubin (0.2-1) mg/dl AST (15-37) U/L ALT (12-78) U/L Alkaline Phosphatase (45-117) U/L Troponin I (0-0.045) ng/ml Total Protein (6.4-8.2) gm/dl Albumin (3.4-5.0) gm/dl Globulin (2.5-4.0) gm/dl Albumin/Globulin Ratio (0.9-2) TSH (0.300-4.500) uIu/ml HCG, Qual Negative (Negative) Urine Color Urine Appearance (Clear) Urine pH (4.5-7.5) Ur Specific [place] (1.000-1.030) Urine Protein (Negative) Urine Glucose (UA) (Negative) Urine Ketones (Negative) Urine Blood (Negative) Urine Nitrite (Negative) Urine Bilirubin (Negative) Urine Urobilinogen (Negative) Ur Leukocyte Esterase (Negative) Urine Osmolality (500-800) mOsm/kg Ur Random Sodium mmol/L Salicylates < 1.7 L (2.8-20) mg/dl Urine Opiates Screen (Neg) Ur Methadone, Qual (Neg) Acetaminophen < 2 L (10-30) ug/ml Urine Barbiturates (Neg) Ur Phencyclidine (PCP) (Neg) U Amphetamin/Meth Scrn (Neg) MDMA (Ecstasy) Screen (Neg) U Benzodiazepines Scrn (Neg) Ur Cocaine Metabolite (Neg) U Marijuana (THC) Screen (Neg) Ethyl Alcohol mg/dL < 3.0 (0-3) mg/dl 07/21/19 07/21/19 Range/Units 09:34 09:34 WBC (4.8-10.8) K/uL RBC (4.2-5.4) M/uL Hgb (12.0-16.0) g/dL Hct (37-47) % MCV (80-100) fL MCH (25-34) pg MCHC (32-36) g/dL RDW Std Deviation (36.4-46.3) fL RDW Coeff of Krystle (11.5-14.5) % Plt Count (130-400) K/uL MPV (7.4-10.4) fL Immature Gran % (Auto) % Neut % (Auto) % Lymph % (Auto) % Braxton % (Auto) % Eos % (Auto) % Baso % (Auto) % Immature Gran # (Auto) (0.00-0.02) K/uL Neut # (Auto) (1.4-6.5) K/uL Lymph # (Auto) (1.2-3.4) K/uL Braxton # (Auto) (0.11-0.59) K/uL Eos # (Auto) (0-0.5) K/uL Baso # (Auto) (0-0.2) K/uL Sodium (136-145) mmol/L Potassium (3.5-5.1) mmol/L Chloride (98-107) mmol/L Carbon Dioxide (21-32) mmol/L Anion Gap (3-11) BUN (7-18) mg/dl Creatinine (0.6-1.2) mg/dl Est Cr Clr Drug Dosing Est GFR ( Amer) Est GFR (Non-Af Amer) BUN/Creatinine Ratio (10-20) Glucose (70-99) mg/dl Osmolality 266 L (280-300) mOsm/kg Calcium (8.5-10.1) mg/dl Total Bilirubin (0.2-1) mg/dl AST (15-37) U/L ALT (12-78) U/L Alkaline Phosphatase (45-117) U/L Troponin I < 0.015 (0-0.045) ng/ml Total Protein (6.4-8.2) gm/dl Albumin (3.4-5.0) gm/dl Globulin (2.5-4.0) gm/dl Albumin/Globulin Ratio (0.9-2) TSH (0.300-4.500) uIu/ml HCG, Qual (Negative) Urine Color Urine Appearance (Clear) Urine pH (4.5-7.5) Ur Specific [place] (1.000-1.030) Urine Protein (Negative) Urine Glucose (UA) (Negative) Urine Ketones (Negative) Urine Blood (Negative) Urine Nitrite (Negative) Urine Bilirubin (Negative) Urine Urobilinogen (Negative) Ur Leukocyte Esterase (Negative) Urine Osmolality (500-800) mOsm/kg Ur Random Sodium mmol/L Salicylates (2.8-20) mg/dl Urine Opiates Screen (Neg) Ur Methadone, Qual (Neg) Acetaminophen (10-30) ug/ml Urine Barbiturates (Neg) Ur Phencyclidine (PCP) (Neg) U Amphetamin/Meth Scrn (Neg) MDMA (Ecstasy) Screen (Neg) U Benzodiazepines Scrn (Neg) Ur Cocaine Metabolite (Neg) U Marijuana (THC) Screen (Neg) Ethyl Alcohol mg/dL (0-3) mg/dl BMP 07/21/19 09:34 Sodium 128 L Potassium 3.5 Chloride 95 L Carbon Dioxide 25 BUN 7 Creatinine 0.87 Glucose 78 Calcium 8.9 Cardiac Enzymes 07/21/19 Range/Units 09:34 Troponin I < 0.015 (0-0.045) ng/ml Liver Function 07/21/19 Range/Units 09:34 Total Bilirubin 0.4 (0.2-1) mg/dl AST 23 (15-37) U/L ALT 22 (12-78) U/L Alkaline Phosphatase 64 (45-117) U/L Albumin 4.2 (3.4-5.0) gm/dl Urine 07/21/19 Range/Units 09:00 Urine Color Yellow Urine Appearance Clear (Clear) Urine pH 7.0 (4.5-7.5) Ur Specific [place] 1.006 (1.000-1.030) Urine Protein Negative (Negative) Urine Glucose (UA) Negative (Negative) Diagnostic Findings Head CT: IMPRESSION: 1. No acute intracranial findings. 2. No calvarial fracture. Code Status & VTE Plan VTE Prophylaxis Plan VTE Prophylaxis will be ordered: Yes Supervising Physician Co-Signing Physician Notes Pt was seen and examined. Agreed with Cinthia ALICIA exam, assessment and plan. 49yo F with a PMH of Bipolar I disorder and hypothyroidism who presents with worsening anxiety and insomnia. she was recently admitted to [facility] from 07/15-07/18 for worsening depression and suicidal thoughts. Pt said that she has been having difficulty to fall asleep. She said that she is taking a lot of psych meds. She said that she is under alot of stress. Denies any suicidal thought. Pt said that she has been drinking alot of water because in her last admission she was told that she was dehydrated. Lab done in the ER showed Na 128, serum osmolarity 266 and urine osmolarity 111. Will do fluid restriction to 1.5L daily. Check BMP in am. Will consult nephrology. Case discussed with Nephrology. Will consult psych for the anxiety and medication management. Will continue monitor closely. MD Arpit
--- NOTE | 2019-07-21 16:29 | Electrocardiogram Report ---
Test Reason : Blood Pressure : / mmHG Vent. Rate : 085 BPM Atrial Rate : 085 BPM P-R Int : 142 ms QRS Dur : 076 ms QT Int : 384 ms P-R-T Axes : 018 049 021 degrees QTc Int : 456 ms Normal sinus rhythm Normal ECG When compared with ECG of 18-SEP-2018 03:01, No significant change was found Confirmed by Rowdy Ascencio ([id number] on 07/21/2019 4:28:51 PM Referred By: REFERRED SELF Confirmed By:Edmond Ascencio
[2019-07-21] MEDS ORDERED: ACETAMINOPHEN 325 MG TAB PO PRN (16:38)
[2019-07-21] MEDS ORDERED: KETOROLAC TROMETHAMINE 15 MG/ML VIAL IV PRN (16:38)
[2019-07-21] MEDS ORDERED: KETOROLAC TROMETHAMINE 10 MG TABLET PO PRN (16:38)
[2019-07-21] MEDS ORDERED: PROMETHAZINE HCL 25 MG TAB PO PRN (16:38)
[2019-07-21] MEDS ORDERED: clonazePAM 0.5 MG TAB PO PRN ×2 (16:38)
[2019-07-21] MEDS ORDERED: CYCLOBENZAPRINE HCL 10 MG TAB PO PRN (16:59)
[2019-07-21] MEDS ORDERED: MECLIZINE HCL 25 MG TAB PO PRN (17:00)
[2019-07-21] MEDS ORDERED: ziprasidone HCL 80 MG CAP PO SCH (21:00)
[2019-07-21] MEDS ORDERED: PRAZOSIN HCL 1 MG CAP PO SCH (21:00)
[2019-07-21] MEDS ORDERED: AMITRIPTYLINE HCL 50 MG TAB PO SCH (21:00)
[2019-07-21] MEDS: FERROUS SULFATE 325 MG TAB PO SCH (21:35)
[2019-07-21] MEDS: MEMANTINE HCL 10 MG TAB PO SCH (21:36)
[2019-07-21] MEDS: PROPRANOLOL HCL 10 MG TAB PO SCH (21:36)
[2019-07-22 04:07] LABS: Basophils # (auto) 0.01 K/uL (0-0.2); Basophils % (auto) 0.3 %; Eosinophils # (auto) 0.14 K/uL (0-0.5); Eosinophils % (auto) 4.2 %; Hematocrit (blood only) 32.9 % (37-47); Hemoglobin 11.5 g/dL (12.0-16.0); Lymphocytes # (auto) 1.45 K/uL (1.2-3.4); Mean Corpuscular Volume 94.5 fL (80-100); Mean Platelet Volume 9.4 fL (7.4-10.4); Monocytes # (auto) 0.43 K/uL (0.11-0.59); Monocytes % (auto) 12.8 %; Neutrophils # (auto) 1.34 K/uL (1.4-6.5); Neutrophils % (auto) 39.7 %; Platelet Count 323 K/uL (130-400); RDW Coefficient of Variation 15.4 % (11.5-14.5); RDW Standard Deviation 53.5 fL (36.4-46.3); Red Blood Count 3.48 M/uL (4.2-5.4); White Blood Count 3.37 K/uL (4.8-10.8)
[2019-07-22 04:25] LABS: BUN Creatinine Ratio 9.5 (10-20); Calcium 9.3 mg/dl (8.5-10.1); Creatinine Clr Calc Pharmacy 87.6 ml/min; Est GFR (African American) 79.5; Est GFR (Non-African American) 68.6; Magnesium 2.3 mg/dl (1.8-2.4); Potassium 3.9 mmol/L (3.5-5.1)
[2019-07-22] MEDS ORDERED: LEVOTHYROXINE SODIUM 125 MCG TABLET PO SCH (06:30)
[2019-07-22] MEDS: PROPRANOLOL HCL 10 MG TAB PO SCH (08:21)
[2019-07-22] MEDS: FERROUS SULFATE 325 MG TAB PO SCH (08:22)
[2019-07-22] MEDS: MEMANTINE HCL 10 MG TAB PO SCH (08:22)
[2019-07-22] MEDS ORDERED: CHOLECALCIFEROL 1,000 UNITS 25 MCG TAB PO SCH (09:00)
[2019-07-22] MEDS ORDERED: FLUOXETINE HCL 20 MG CAP PO SCH (09:00)
[2019-07-22] MEDS ORDERED: POTASSIUM CHLORIDE 20 MEQ TABCR PO STA (09:10)
--- NOTE | 2019-07-22 09:10 | Hospitalist Progress Note ---
Date of Service July 22, 2019 Assessment & Plan (1) Hyponatremia: This is a 49yo F with a PMH of Bipolar I disorder and hypothyroidism who presents with worsening anxiety and insomnia who was found to have hyponatremia. -Na of 128, was 132 at time of discharge from [facility] on 07/18. Baseline~ 135 in past -Serum osm of 266, urine osm of 111, urine Na 21 -chronic mild hyponatremia attributed to polydipsia based on admission labs - Nephrology consulted -cont to hold HCTZ and would not resume at d/c; recommend to manage edema conservatively when it comes or if absolutely necessary low dose lasix -cont 1.5L Fluid restriction -recommend repeat BMP 1 week after hospital d/c >> if hyponatremia persists, pt can follow in CKD clinic -recommend to decrease/try to avoid NSAID use (2) Bipolar 1 disorder, manic, mild: In setting of hypomania, per patient -pt reports difficulty w/ sleep -on admission continued home regimen for sleep, bipolar disorder of Amy Allison Klonopin, Geodon -pt would benefit from a medication reassessment from psych service in setting of 2 recent hospital admissions and now hyponatremia -Psychiatry consulted -Psychiatry service contacted pt's psychiatrist, Dr. Carr, and discussed the proper plan - recommend to help with insomnia with hydroxyzine, total of 50 mg. -At this point did not feel that pt's psychiatric medications were contributing to low sodium levels, in a major way, and it was believed that pt's excessive fluid intake recently was likely the main contributing factor. Therefore, recommend to continue ziprasidone and fluoxetine at unchanged dose at this time. -Recommend close follow-up with psychiatrist and therapist, which pt already has scheduled (3) Post-concussion headache: CT head without acute abnormalities -Toradol, tylenol PRN (4) Anxiety: Continue Prozac, Klonopin PRN, Vistaril PRN (5) Hypothyroidism: TSH wnl -Continue levothyroxine DVT Ppx: SCDs Code status: FULL PCP: [facility]ticipated Discharge Date Admission Date: July 21, 2019 Subjective Pt is sitting up in bed in NAD. Pt was seen by psychiatry and nephrology earlier today. Pt says that she feels better and that she understands specialist's recommendations. She is interested in going home. Says she won't be able to get sleep if she stays in hospital. Says she has already follow up arranged with her psychiatrist and therapist. Review of Systems Review of Systems: All systems reviewed & are unremarkable except as noted in HPI & below Constitutional: no fever and no chills Respiratory: no cough and no dyspnea Cardiovascular: no chest pain and no palpitations Gastrointestinal: no abdominal pain, no nausea and no vomiting Psychiatric: no hopelessness, no suicidal ideation, no homicidal ideation and no hallucinations Physical Exam Physical Exam: General Appearance: WD/WN, in NAD, sitting up in bed, pressured speech Head: normocephalic, atraumatic Eyes: +ecchymosis under L eye, PERRL, EOMI, conjunctivae normal, anicteric sclerae ENT: external ear and nose normal, oropharynx normal Neck: trachea midline, no thyromegaly normal visual inspection Respiratory: normal respiratory effort, lungs clear to auscultation, no wheeze, rales, rhonchi. Normal insp/exp effort, no accessory muscle use Cardiovascular: regular rate, rhythm, no murmur, normal peripheral pulses Chest: normal inspection of chest Abdomen/GI: normal bowel sounds, soft, nontender to palpation Extremities/Musculoskeletal: no cyanosis or clubbing, extremities motor strength 5/5 Neurologic: PERRL, EOMI, accommodation nl, no dysarthria, CN's II-XI intact bilaterally and moves all extremities. +bilateral hand tremors Psychiatric: A+Ox3, + pressured speech, able to follow conversation appropriately, answers questions appropriately, cooperative Skin: no rashes, normal color, warm/dry Results & Data Results & Data ([facility]) Vital Signs (Past 12 Hours) Vital Signs Temp Pulse Pulse Pulse Resp BP Pulse Ox 07/22/19 07:14 36.9 C 94 H 16 120/80 97 07/22/19 03:47 114 H 07/22/19 03:00 36.7 C 86 17 130/86 95 07/21/19 23:41 36.7 C 87 17 108/75 95 Laboratory Results 07/22/19 07/22/19 07/22/19 Range/Units 03:55 03:55 03:55 WBC 3.37 L (4.8-10.8) K/uL RBC 3.48 L (4.2-5.4) M/uL Hgb 11.5 L (12.0-16.0) g/dL Hct 32.9 L (37-47) % MCV 94.5 (80-100) fL MCH 33.0 (25-34) pg MCHC 35.0 (32-36) g/dL RDW Std Deviation 53.5 H (36.4-46.3) fL RDW Coeff of Krystle 15.4 H (11.5-14.5) % Plt Count 323 (130-400) K/uL MPV 9.4 (7.4-10.4) fL Immature Gran % (Auto) 0.0 % Neut % (Auto) 39.7 % Lymph % (Auto) 43.0 % [place] % (Auto) 12.8 % Eos % (Auto) 4.2 % Baso % (Auto) 0.3 % Immature Gran # (Auto) 0.00 (0.00-0.02) K/uL Neut # (Auto) 1.34 L (1.4-6.5) K/uL Lymph # (Auto) 1.45 (1.2-3.4) K/uL [place] # (Auto) 0.43 (0.11-0.59) K/uL Eos # (Auto) 0.14 (0-0.5) K/uL Baso # (Auto) 0.01 (0-0.2) K/uL Sodium 133 L (136-145) mmol/L Potassium 3.9 (3.5-5.1) mmol/L Chloride 99 (98-107) mmol/L Carbon Dioxide 27 (21-32) mmol/L Anion Gap 7.0 (3-11) BUN 9 (7-18) mg/dl Creatinine 0.97 (0.6-1.2) mg/dl Est Cr Clr Drug Dosing 87.6 Est GFR ( Amer) 79.5 Est GFR (Non-Af Amer) 68.6 BUN/Creatinine Ratio 9.5 L (10-20) Glucose 98 (70-99) mg/dl Osmolality (280-300) mOsm/kg Lactate 0.8 (0.4-2.0) mmol/L Calcium 9.3 (8.5-10.1) mg/dl Magnesium 2.3 (1.8-2.4) mg/dl Total Bilirubin (0.2-1) mg/dl AST (15-37) U/L ALT (12-78) U/L Alkaline Phosphatase (45-117) U/L Troponin I (0-0.045) ng/ml Total Protein (6.4-8.2) gm/dl Albumin (3.4-5.0) gm/dl Globulin (2.5-4.0) gm/dl Albumin/Globulin Ratio (0.9-2) TSH (0.300-4.500) uIu/ml HCG, Qual (Negative) Urine Color Urine Appearance (Clear) Urine pH (4.5-7.5) Ur Specific [place] (1.000-1.030) Urine Protein (Negative) Urine Glucose (UA) (Negative) Urine Ketones (Negative) Urine Blood (Negative) Urine Nitrite (Negative) Urine Bilirubin (Negative) Urine Urobilinogen (Negative) Ur Leukocyte Esterase (Negative) Urine Osmolality (500-800) mOsm/kg Ur Random Sodium mmol/L Salicylates (2.8-20) mg/dl Urine Opiates Screen (Neg) Ur Methadone, Qual (Neg) Acetaminophen (10-30) ug/ml Urine Barbiturates (Neg) Ur Phencyclidine (PCP) (Neg) U Amphetamin/Meth Scrn (Neg) MDMA (Ecstasy) Screen (Neg) U Benzodiazepines Scrn (Neg) Ur Cocaine Metabolite (Neg) U Marijuana (THC) Screen (Neg) Ethyl Alcohol mg/dL (0-3) mg/dl 07/21/19 07/21/19 07/21/19 Range/Units 09:34 09:34 09:34 WBC (4.8-10.8) K/uL RBC (4.2-5.4) M/uL Hgb (12.0-16.0) g/dL Hct (37-47) % MCV (80-100) fL MCH (25-34) pg MCHC (32-36) g/dL RDW Std Deviation (36.4-46.3) fL RDW Coeff of Krystle (11.5-14.5) % Plt Count (130-400) K/uL MPV (7.4-10.4) fL Immature Gran % (Auto) % Neut % (Auto) % Lymph % (Auto) % [place] % (Auto) % Eos % (Auto) % Baso % (Auto) % Immature Gran # (Auto) (0.00-0.02) K/uL Neut # (Auto) (1.4-6.5) K/uL Lymph # (Auto) (1.2-3.4) K/uL [place] # (Auto) (0.11-0.59) K/uL Eos # (Auto) (0-0.5) K/uL Baso # (Auto) (0-0.2) K/uL Sodium (136-145) mmol/L Potassium (3.5-5.1) mmol/L Chloride (98-107) mmol/L Carbon Dioxide (21-32) mmol/L Anion Gap (3-11) BUN (7-18) mg/dl Creatinine (0.6-1.2) mg/dl Est Cr Clr Drug Dosing Est GFR ( Amer) Est GFR (Non-Af Amer) BUN/Creatinine Ratio (10-20) Glucose (70-99) mg/dl Osmolality 266 L (280-300) mOsm/kg Lactate (0.4-2.0) mmol/L Calcium (8.5-10.1) mg/dl Magnesium (1.8-2.4) mg/dl Total Bilirubin (0.2-1) mg/dl AST (15-37) U/L ALT (12-78) U/L Alkaline Phosphatase (45-117) U/L Troponin I < 0.015 (0-0.045) ng/ml Total Protein (6.4-8.2) gm/dl Albumin (3.4-5.0) gm/dl Globulin (2.5-4.0) gm/dl Albumin/Globulin Ratio (0.9-2) TSH (0.300-4.500) uIu/ml HCG, Qual Negative (Negative) Urine Color Urine Appearance (Clear) Urine pH (4.5-7.5) Ur Specific [place] (1.000-1.030) Urine Protein (Negative) Urine Glucose (UA) (Negative) Urine Ketones (Negative) Urine Blood (Negative) Urine Nitrite (Negative) Urine Bilirubin (Negative) Urine Urobilinogen (Negative) Ur Leukocyte Esterase (Negative) Urine Osmolality (500-800) mOsm/kg Ur Random Sodium mmol/L Salicylates (2.8-20) mg/dl Urine Opiates Screen (Neg) Ur Methadone, Qual (Neg) Acetaminophen (10-30) ug/ml Urine Barbiturates (Neg) Ur Phencyclidine (PCP) (Neg) U Amphetamin/Meth Scrn (Neg) MDMA (Ecstasy) Screen (Neg) U Benzodiazepines Scrn (Neg) Ur Cocaine Metabolite (Neg) U Marijuana (THC) Screen (Neg) Ethyl Alcohol mg/dL (0-3) mg/dl 07/21/19 07/21/19 07/21/19 Range/Units 09:34 09:34 09:34 WBC (4.8-10.8) K/uL RBC (4.2-5.4) M/uL Hgb (12.0-16.0) g/dL Hct (37-47) % MCV (80-100) fL MCH (25-34) pg MCHC (32-36) g/dL RDW Std Deviation (36.4-46.3) fL RDW Coeff of Krystle (11.5-14.5) % Plt Count (130-400) K/uL MPV (7.4-10.4) fL Immature Gran % (Auto) % Neut % (Auto) % Lymph % (Auto) % [place] % (Auto) % Eos % (Auto) % Baso % (Auto) % Immature Gran # (Auto) (0.00-0.02) K/uL Neut # (Auto) (1.4-6.5) K/uL Lymph # (Auto) (1.2-3.4) K/uL [place] # (Auto) (0.11-0.59) K/uL Eos # (Auto) (0-0.5) K/uL Baso # (Auto) (0-0.2) K/uL Sodium 128 L (136-145) mmol/L Potassium 3.5 (3.5-5.1) mmol/L Chloride 95 L (98-107) mmol/L Carbon Dioxide 25 (21-32) mmol/L Anion Gap 8.0 (3-11) BUN 7 (7-18) mg/dl Creatinine 0.87 (0.6-1.2) mg/dl Est Cr Clr Drug Dosing Not Reportable Est GFR ( Amer) 90.7 Est GFR (Non-Af Amer) 78.2 BUN/Creatinine Ratio 7.5 L (10-20) Glucose 78 (70-99) mg/dl Osmolality (280-300) mOsm/kg Lactate (0.4-2.0) mmol/L Calcium 8.9 (8.5-10.1) mg/dl Magnesium (1.8-2.4) mg/dl Total Bilirubin 0.4 (0.2-1) mg/dl AST 23 (15-37) U/L ALT 22 (12-78) U/L Alkaline Phosphatase 64 (45-117) U/L Troponin I (0-0.045) ng/ml Total Protein 8.2 (6.4-8.2) gm/dl Albumin 4.2 (3.4-5.0) gm/dl Globulin 4.0 (2.5-4.0) gm/dl Albumin/Globulin Ratio 1.1 (0.9-2) TSH 2.890 (0.300-4.500) uIu/ml HCG, Qual (Negative) Urine Color Urine Appearance (Clear) Urine pH (4.5-7.5) Ur Specific [place] (1.000-1.030) Urine Protein (Negative) Urine Glucose (UA) (Negative) Urine Ketones (Negative) Urine Blood (Negative) Urine Nitrite (Negative) Urine Bilirubin (Negative) Urine Urobilinogen (Negative) Ur Leukocyte Esterase (Negative) Urine Osmolality (500-800) mOsm/kg Ur Random Sodium mmol/L Salicylates < 1.7 L (2.8-20) mg/dl Urine Opiates Screen (Neg) Ur Methadone, Qual (Neg) Acetaminophen < 2 L (10-30) ug/ml Urine Barbiturates (Neg) Ur Phencyclidine (PCP) (Neg) U Amphetamin/Meth Scrn (Neg) MDMA (Ecstasy) Screen (Neg) U Benzodiazepines Scrn (Neg) Ur Cocaine Metabolite (Neg) U Marijuana (THC) Screen (Neg) Ethyl Alcohol mg/dL < 3.0 (0-3) mg/dl 07/21/19 07/21/19 07/21/19 Range/Units 09:34 09:00 09:00 WBC 2.88 L (4.8-10.8) K/uL RBC 3.77 L (4.2-5.4) M/uL Hgb 12.2 (12.0-16.0) g/dL Hct 35.3 L (37-47) % MCV 93.6 (80-100) fL MCH 32.4 (25-34) pg MCHC 34.6 (32-36) g/dL RDW Std Deviation 51.9 H (36.4-46.3) fL RDW Coeff of Krystle 15.3 H (11.5-14.5) % Plt Count 360 (130-400) K/uL MPV 9.4 (7.4-10.4) fL Immature Gran % (Auto) 0.0 % Neut % (Auto) 43.1 % Lymph % (Auto) 40.6 % [place] % (Auto) 11.1 % Eos % (Auto) 4.9 % Baso % (Auto) 0.3 % Immature Gran # (Auto) 0.00 (0.00-0.02) K/uL Neut # (Auto) 1.24 L (1.4-6.5) K/uL Lymph # (Auto) 1.17 L (1.2-3.4) K/uL [place] # (Auto) 0.32 (0.11-0.59) K/uL Eos # (Auto) 0.14 (0-0.5) K/uL Baso # (Auto) 0.01 (0-0.2) K/uL Sodium (136-145) mmol/L Potassium (3.5-5.1) mmol/L Chloride (98-107) mmol/L Carbon Dioxide (21-32) mmol/L Anion Gap (3-11) BUN (7-18) mg/dl Creatinine (0.6-1.2) mg/dl Est Cr Clr Drug Dosing Est GFR ( Amer) Est GFR (Non-Af Amer) BUN/Creatinine Ratio (10-20) Glucose (70-99) mg/dl Osmolality (280-300) mOsm/kg Lactate (0.4-2.0) mmol/L Calcium (8.5-10.1) mg/dl Magnesium (1.8-2.4) mg/dl Total Bilirubin (0.2-1) mg/dl AST (15-37) U/L ALT (12-78) U/L Alkaline Phosphatase (45-117) U/L Troponin I (0-0.045) ng/ml Total Protein (6.4-8.2) gm/dl Albumin (3.4-5.0) gm/dl Globulin (2.5-4.0) gm/dl Albumin/Globulin Ratio (0.9-2) TSH (0.300-4.500) uIu/ml HCG, Qual (Negative) Urine Color Urine Appearance (Clear) Urine pH (4.5-7.5) Ur Specific [place] (1.000-1.030) Urine Protein (Negative) Urine Glucose (UA) (Negative) Urine Ketones (Negative) Urine Blood (Negative) Urine Nitrite (Negative) Urine Bilirubin (Negative) Urine Urobilinogen (Negative) Ur Leukocyte Esterase (Negative) Urine Osmolality 111 L (500-800) mOsm/kg Ur Random Sodium 21 mmol/L Salicylates (2.8-20) mg/dl Urine Opiates Screen (Neg) Ur Methadone, Qual (Neg) Acetaminophen (10-30) ug/ml Urine Barbiturates (Neg) Ur Phencyclidine (PCP) (Neg) U Amphetamin/Meth Scrn (Neg) MDMA (Ecstasy) Screen (Neg) U Benzodiazepines Scrn (Neg) Ur Cocaine Metabolite (Neg) U Marijuana (THC) Screen (Neg) Ethyl Alcohol mg/dL (0-3) mg/dl 07/21/19 07/21/19 Range/Units 09:00 09:00 WBC (4.8-10.8) K/uL RBC (4.2-5.4) M/uL Hgb (12.0-16.0) g/dL Hct (37-47) % MCV (80-100) fL MCH (25-34) pg MCHC (32-36) g/dL RDW Std Deviation (36.4-46.3) fL RDW Coeff of Krystle (11.5-14.5) % Plt Count (130-400) K/uL MPV (7.4-10.4) fL Immature Gran % (Auto) % Neut % (Auto) % Lymph % (Auto) % [place] % (Auto) % Eos % (Auto) % Baso % (Auto) % Immature Gran # (Auto) (0.00-0.02) K/uL Neut # (Auto) (1.4-6.5) K/uL Lymph # (Auto) (1.2-3.4) K/uL [place] # (Auto) (0.11-0.59) K/uL Eos # (Auto) (0-0.5) K/uL Baso # (Auto) (0-0.2) K/uL Sodium (136-145) mmol/L Potassium (3.5-5.1) mmol/L Chloride (98-107) mmol/L Carbon Dioxide (21-32) mmol/L Anion Gap (3-11) BUN (7-18) mg/dl Creatinine (0.6-1.2) mg/dl Est Cr Clr Drug Dosing Est GFR ( Amer) Est GFR (Non-Af Amer) BUN/Creatinine Ratio (10-20) Glucose (70-99) mg/dl Osmolality (280-300) mOsm/kg Lactate (0.4-2.0) mmol/L Calcium (8.5-10.1) mg/dl Magnesium (1.8-2.4) mg/dl Total Bilirubin (0.2-1) mg/dl AST (15-37) U/L ALT (12-78) U/L Alkaline Phosphatase (45-117) U/L Troponin I (0-0.045) ng/ml Total Protein (6.4-8.2) gm/dl Albumin (3.4-5.0) gm/dl Globulin (2.5-4.0) gm/dl Albumin/Globulin Ratio (0.9-2) TSH (0.300-4.500) uIu/ml HCG, Qual (Negative) Urine Color Yellow Urine Appearance Clear (Clear) Urine pH 7.0 (4.5-7.5) Ur Specific [place] 1.006 (1.000-1.030) Urine Protein Negative (Negative) Urine Glucose (UA) Negative (Negative) Urine Ketones Negative (Negative) Urine Blood Negative (Negative) Urine Nitrite Negative (Negative) Urine Bilirubin Negative (Negative) Urine Urobilinogen Negative (Negative) Ur Leukocyte Esterase Negative (Negative) Urine Osmolality (500-800) mOsm/kg Ur Random Sodium mmol/L Salicylates (2.8-20) mg/dl Urine Opiates Screen Neg (Neg) Ur Methadone, Qual Neg (Neg) Acetaminophen (10-30) ug/ml Urine Barbiturates Neg (Neg) Ur Phencyclidine (PCP) Neg (Neg) U Amphetamin/Meth Scrn Neg (Neg) MDMA (Ecstasy) Screen Neg (Neg) U Benzodiazepines Scrn Neg (Neg) Ur Cocaine Metabolite Neg (Neg) U Marijuana (THC) Screen Neg (Neg) Ethyl Alcohol mg/dL (0-3) mg/dl Medications Administered Current Inpatient Medications Acetaminophen (Tylenol) 650 mg PO Q4H PRN PRN Reason: pain/fever Stop: 08/20/19 16:37 Last Admin: 07/22/19 01:47 Dose: 650 mg Documented by: Amitriptyline HCl (Elavil) 50 mg PO HS MERI Stop: 08/20/19 20:59 Last Admin: 07/21/19 21:34 Dose: 50 mg Documented by: Clonazepam (Klonopin) 0.5 mg PO BID PRN PRN Reason: Anxiety Stop: 08/20/19 16:37 Clonazepam (Klonopin) 0.5 mg PO HS PRN PRN Reason: Insomnia Stop: 08/20/19 16:37 Last Admin: 07/22/19 01:47 Dose: 0.5 mg Documented by: Cyclobenzaprine HCl (Flexeril) 10 mg PO HS PRN PRN Reason: MUSCLE SPASM Stop: 08/20/19 16:58 Ferrous Sulfate (Feosol) 325 mg PO BID MERI Stop: 08/20/19 20:59 Last Admin: 07/22/19 08:22 Dose: 325 mg Documented by: Fluoxetine HCl (Prozac) 60 mg PO DAILY [facility]I Stop: 08/21/19 08:59 Hydroxyzine HCl (Vistaril) 25 mg PO Q6 PRN PRN Reason: Anxiety Stop: 08/20/19 16:37 Last Admin: 07/22/19 04:27 Dose: 25 mg Documented by: Ketorolac Tromethamine (Toradol) 15 mg IV Q6H PRN PRN Reason: Pain Stop: 07/23/19 14:02 Levothyroxine Sodium (Synthroid) 125 mcg PO DAILYBB MERI Stop: 08/21/19 06:29 Last Admin: 07/22/19 05:02 Dose: 125 mcg Documented by: Meclizine HCl (Antivert) 25 mg PO TID PRN PRN Reason: DIZZINESS Stop: 08/20/19 16:59 Memantine (Namenda) 10 mg PO BID [facility] Stop: 08/20/19 20:59 Last Admin: 07/22/19 08:22 Dose: 10 mg Documented by: Miscellaneous (Order Awaiting Action) 1 ea N/A QS [facility] Stop: 08/20/19 17:14 Last Admin: 07/22/19 08:24 Dose: Not Given Documented by: Prazosin HCl (Prazosin Hcl) 2 mg PO [facility] Stop: 08/20/19 20:59 Last Admin: 07/21/19 21:35 Dose: 2 mg Documented by: Promethazine HCl (Phenergan) 25 mg PO Q6 PRN PRN Reason: Vomiting Stop: 08/20/19 16:37 Propranolol HCl (Inderal) 10 mg PO BID [facility] Stop: 08/20/19 20:59 Last Admin: 07/22/19 08:21 Dose: 10 mg Documented by: Vitamin D (Vitamin D3) 1,000 units PO DAILY [facility] Stop: 08/21/19 08:59 Ziprasidone (Geodon) 80 mg PO [facility] Stop: 08/20/19 20:59 Last Admin: 07/21/19 21:37 Dose: 80 mg Documented by:
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
[2019-07-22 11:12] VITALS: TEMP 99
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
--- NOTE | 2019-07-22 19:12 | Discharge Summary ---
Date of Service July 22, 2019 Admission HPI Per Admitting Provider This is a 49yo F with a PMH of Bipolar I disorder and hypothyroidism who presents with worsening anxiety and insomnia. Patient was recently admitted to [facility] from 07/15-07/18 for worsening depression and suicidal thoughts. Has had a very stressful past few weeks during which her incarcerated fianc was denied bail and patient sustained a concussion last week trying to grape picker service dog. States that she has had multiple concussions in the recent past. Has also been caring for fiumberto's elderly parents. All of the stress caused her to "flip from suicidal to hypomania" and patient has been suffering from inso mnia and racing thoughts. During time at [facility], patient was told she was dehydrated and has dramatically increased fluid intake since then. Has also been suffering from postconcussive headaches but they are improved with Toradol. Denies any confusion, nausea or vomiting. No chest pain, shortness of breath, abdominal pain, dysuria, diarrhea or constipation. Denies any medication changes during recent admission but with worsening anxiety, was prescribed Vistaril yesterday and has taken it twice. Also just completed course of Bactrim for UTI. Patient does endorse visual/auditory hallucinations that are new but are nonthreatening in nature. Denies any SI/HI. Admission Exam Per Admitting Provider General Appearance: WD/WN, vitals as above, NAD, sitting up in bed, pressured speech Head: normocephalic, atraumatic Eyes: +ecchymosis under L eye, PERRL, conjunctivae normal, anicteric sclerae ENT: external ear and nose normal, oropharynx normal Neck: trachea midline, no thyromegaly normal visual inspection Respiratory: normal respiratory effort, lungs clear to auscultation, no wheeze, rales, rhonchi. Normal insp/exp effort, no accessory muscle use Cardiovascular: regular rate, rhythm, no murmur, normal peripheral pulses. Vessels: no JVD or carotid bruit Chest: normal inspection of chest Abdomen/GI: normal bowel sounds, soft, nontender, no hepatosplenomegaly Extremities/Musculoskeletal: no cyanosis or clubbing, extremities motor strength 5/5 Neurologic: PERRL, EOMI, accommodation nl, no dysarthria, CN's II-XI intact bilaterally and moves all extremities. 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 Normal insp/exp effort, no accessory muscle use Cardiovascular: regular rate, rhythm, no murmur, normal peripheral pulses Chest: normal inspection of chest Abdomen/GI: normal bowel sounds, soft, nontender to palpation Extremities/Musculoskeletal: no cyanosis or clubbing, extremities motor strength 5/5 Neurologic: PERRL, EOMI, accommodation nl, no dysarthria, CN's II-XI intact bilaterally and moves all extremities. +bilateral hand tremors Psychiatric: A+Ox3, + pressured speech, able to follow conversation appropriately, answers questions appropriately, cooperative Skin: no rashes, normal color, warm/dry Discharge Data Allergies Allergy/AdvReac Type Severity Reaction Status Date / Time codeine Allergy Intermediate ABD CRAMPS Verified 07/29/19 08:12 Penicillins Allergy Unknown HAPPENED Verified 07/29/19 08:12 A CHILD Consultations 07/21/19 13:02 ED Decision to Admit Stat 07/21/19 16:38 Consult Case Management - Discharge Planning Routine Consult Psychiatry Routine 07/22/19 09:06 Consult Nephrology Routine Ordered Studies 07/21/19 08:51 CT head/brain wo con Stat IMPRESSION: 1. No acute intracranial findings. 2. No calvarial fracture. Hospital Course (1) Hyponatremia: This is a 49yo F with a PMH of Bipolar I disorder and hypothyroidism who presents with worsening anxiety and insomnia who was found to have hyponatremia. -Na of 128, was 132 at time of discharge from [facility] on 07/18. Baseline~ 135 in past -Serum osm of 266, urine osm of 111, urine Na 21 -chronic mild hyponatremia attributed to polydipsia based on admission labs - Nephrology consulted -cont to hold HCTZ and would not resume at d/c; recommend to manage edema conservatively when it comes or if absolutely necessary low dose lasix -cont 1.5L Fluid restriction -recommend repeat BMP 1 week after hospital d/c >> if hyponatremia persists, pt can follow in CKD clinic -recommend to decrease/try to avoid NSAID use (2) Bipolar 1 disorder, manic, mild: In setting of hypomania, per patient -pt reports difficulty w/ sleep -on admission continued home regimen for sleep, bipolar disorder of Elavil, ProzacElena Geodon -pt would benefit from a medication reassessment from psych service in setting of 2 recent hospital admissions and now hyponatremia -Psychiatry consulted -Psychiatry service contacted pt's psychiatrist, Dr. Carr, and discussed the proper plan - recommend to help with insomnia with hydroxyzine, total of 50 mg. -At this point did not feel that pt's psychiatric medications were contributing to low sodium levels, in a major way, and it was believed that pt's excessive fluid intake recently was likely the main contributing factor. Therefore, recommend to continue ziprasidone and fluoxetine at unchanged dose at this time. -Recommend close follow-up with psychiatrist and therapist, which pt already has scheduled (3) Post-concussion headache: CT head without acute abnormalities -Toradol, tylenol PRN (4) Anxiety: Continue Prozac, Klonopin PRN, Vistaril PRN (5) Hypothyroidism: TSH wnl -Continue levothyroxine Total Time Total Time Spent Total Time Spent (In Minutes): 40 Total Time Includes: Examination of the Patient, Discharge Planning, Medication Reconciliation and Communication With Other Providers Discharge Plan Discharge Items Patient Disposition: Home - Self-Care Reason For Visit: HYPONATREMIA Discharge Diagnosis: Hyponatremia Insomnia secondary to bipolar disorder Activity: Per Instructions section Non-emergency contact: Primary Care Provider, Psychiatrist and Therapist Call non-emergency contact if: you have any medication questions and your symptoms worsen Follow-up/Referrals: Nick Amanda MD [Primary Care Provider] - Diet: Regular Fluids: 1500ml (6 cups) Addtl Attending Provider Instructions: While in hospital, you were evaluated by psychiatry service and nephrology service. As already discussed, hide splitter recommends that you stop taking your hydrochlorothiazide, medication for your occasional swelling. Recommend fluid restriction of 1.5 L, that is equal to 1500 mL /per day. Recommend to repeat your blood work, BMP, to monitor your sodium level in 1 week. Your primary doctor can order this test. Please follow-up with your primary doctor in 1 week. If your sodium level continues to be low, recommend to follow-up with nephrology. Also recommend to decrease/try to avoid your NSAID medication usel, such as Aleve, Motrin, ibuprofen. You can take Tylenol 1000 mg 3 times a day for pain, if needed. Psychiatry service here contacted your psychiatrist, Dr. Carr, and discussed the proper plan for you. As you are aware, recommend to help with insomnia with hydroxyzine, total of 50 mg. At this point did not feel that your psychiatric medications were contributing to your low sodium levels, in a major way, and it was believed that your excessive fluid drinking recently was likely the main contributing factor. Therefore, recommend to continue your ziprasidone and fluoxetine at unchanged dose at this time. Recommend close follow-up with your psychiatrist and therapist, which you already have scheduled. Pending Studies at Discharge: No Stand-Alone Forms: My [facility], Smoking Cessation, Suicide Prevention Resources Medications and DC Order Prescriptions: Continued levothyroxine [Synthroid] 125 mcg Tablet 125 mcg PO DAILY RF: 0 cholecalciferol (vitamin D3) [Vitamin D3] 1,000 unit Tablet 1,000 mg PO DAILY RF: 0 cyanocobalamin (vitamin B-12) 1,000 mcg/mL Solution 1,000 mcg IM MONTHLY RF: 0 metformin 750 mg tablet extended release 24 hr 1,500 mg PO BID RF: 0 meclizine 25 mg tablet 25 mg PO TID PRN (Reason: Dizziness) RF: 0 promethazine 25 mg tablet 25 mg PO Q6 PRN (Reason: Vomiting) RF: 0 hydroxyzine pamoate 25 mg capsule 25 mg PO Q6 PRN (Reason: Anxiety) RF: 0 clonazepam 0.5 mg tablet 0.5 mg PO BID PRN (Reason: Anxiety) RF: 0 propranolol 10 mg tablet 10 mg PO BID RF: 0 prazosin 2 mg capsule 2 mg PO HS RF: 0 cyclobenzaprine 10 mg tablet 10 mg PO HS PRN (Reason: Muscle Spasm) RF: 0 phentermine 15 mg capsule 15 mg PO DAILY RF: 0 amitriptyline 25 mg tablet 50 mg PO HS RF: 0 ferrous sulfate 325 mg (65 mg iron) tablet 325 mg PO BID RF: 0 ziprasidone HCl 40 mg capsule 80 mg PO HS RF: 0 fluoxetine 20 mg capsule 60 mg PO DAILY RF: 0 memantine 10 mg tablet 10 mg PO BID RF: 0 clonazepam 0.5 mg tablet 0.5 - 1 mg PO HS PRN (Reason: Insomnia) RF: 0 Discontinued ketorolac 10 mg tablet 10 mg PO Q6 PRN (Reason: Pain) RF: 0 Azo Urinary Pain Relief 99.5 mg Tablet 99.5 - 199 mg PO .2-3 X DAY PRN (Reason: URINARY PAIN) RF: 0 sulfamethoxazole-trimethoprim 800-160 mg tablet 800 tab PO BID RF: 0 potassium chloride [Klor-Con M20] 20 mEq tablet,ER particles/crystals 20 meq PO DAILY PRN (Reason: Hypokalemia) RF: 0 hydrochlorothiazide 25 mg tablet 25 mg PO DAILY PRN (Reason: Edema) RF: 0 Discharge Orders: Discharge Order (Routine); Ordered 07/22/19 Ordered By: Gage Arroyo/Other Patient Handouts: Bipolar Disorder, Discharge Instructions for Hyponatremia Admission Data Admit Date/Time: 07/21/19 14:02 Attending Provider: Gage Ledezma Admit Provider: Jose Francisco Munson Primary Care Provider: Nick Amanda Other Providers: Jose Francisco Munson ; Tasneem Salas ; Stewart Arvizu ; Shiloh Mcdowell ; Kory Adair ; Usama Castro ; Alfredo Hamm ; Mary Anne Lea ; Dylon Rushing ; Remedios Hernandez ; Nancy Varma ; Leana Romo ; Carmel Moore ; Gustabo Rodríguez I. ; Shannan Cesar ; Genia Vo ; Sandy Moy ; Anastacio Fernando S. Other Interventions: Discharge Summary Assessment (RN) Last Done: 07/22/19 19:46 DC Date/Time DO NOT enter until pt leaves facility: 07/22/19 20:53
[2019-07-22 19:16] VITALS: O2SAT 95
[2019-07-22 19:48] VITALS: BP 148/94; PULSE 87
== END 2019-07-22 20:53 | disposition home or self-care (01) | DRG 885 ==
LOC: ED 08:13 → 2W 14:02 → SUATTDRO 14:02 → 2W 16:10

== ENCOUNTER 2020-03-30 17:45 | Inpatient (IN) ==
[2020-03-30] MEDS ORDERED: MULTI-VITAMIN INFUSION 10 ML, THIAMINE HCL 100 MG, FOLIC ACID 1 MG in SODIUM CHLORIDE 0... IV ONE (18:12)
--- NOTE | 2020-03-30 18:17 | Emergency Department Note ---
Impression & Plan Alcohol intoxication, Alcoholic ketoacidosis, Dehydration, Bipolar disorder, Hyponatremia, Hypokalemia, Hypomagnesemia ED Provider Note NAME: ANA ROSA PRAKASH AGE: 50 SEX: F ARRIVES VIA: Ambulance INFORMANT: Patient, ED PROVIDER(S): Rom Chen MD CHIEF COMPLAINT: Weakness, confusion. PLAN: Disposition: Admit MEDICAL DECISION MAKING: The patient is a 50-year-old woman with a past medical history of Bipolar I disorder and hypothyroidism [facility] emergency department via EMS after friends were concerned that she was having strokelike symptoms where her speech was slurred and she appeared more confused and felt as though this has evolved over the past several days per EMS report. The patient is a poor historian and reports today she was taking a nap and was surprised when she woke to find EMS of their. She says she did have alcohol earlier today. She otherwise has been taking her medications as prescribed including clonazepam, memantine, ziprasidone. Denies any recent fevers, chills, cough congestion, nausea, vomiting, diarrhea. She feels her mouth is dry and her throat feels somewhat sore over the past 24 hours. She denies any known COVID-19 exposures. On arrival the patient is drowsy appearing but alert and oriented to self and place, afebrile with heart rate in the 120s and vital signs otherwise stable. She appears clinically dry. She has slow slightly dysarthric speech with periodic tongue fasciculations consistent with tar dive dyskinesia and exhibits slow motor movements that is suggestive of extraparametal symptoms. Her [id number] is slightly impaired. Her alternating palms is also slow and poorly coordinated. She has no focal weakness and exhibits symmetric 4/5 strength in all extremities. EKG without overt acute ischemia. CXR negative for acute cardiopulmonary process. WBC, H/H, platelets wnl. Glucose 67 and Chemistry with Agap acidosis with Agap 17 and bicarb 20. VBG with mild acidemia of 7.3. Initial lactate 3.7. Magnesium 1.6 with repletion provided. AST 91, in the setting of etoh abuse. Otherwise, LFTs and electrolytes unremarkable. Ammonia undetectable. Troponin negative /undetectable. TSH wnl. UA negative for infection. Blood etoh 369. Covid19 PCR negative. Flu/RSV PCR negative. CT head and CTA head and neck negative for acute process. Patient treated with Banana bag, additional thiamine, and D5NSS for suspicious of primary component of alcoholic ketoacidosis. Patient agrees with recommendation for admission. Case was discussed with Dr. Arellano, [facility] hospitalist, who will evaluate the patient for admission. Triage Nursing notes reviewed and agree them. Prior medical records reviewed Vital Signs: reviewed and remarkable for tachycardia. Differential diagnosis: Infection, dehydration, metabolic abnormality, hypo/hyperglycemia, electrolyte disturbance, anemia, hypoxia, cardiac sources, intracerebral event, toxicologic, neurologic, as well as other pathologies. ER treatment provided: See below. Diagnostics interpreted by me: ECG: Sinus tachycardia, 120 bpm, no ectopy, LPFB, no overt ST elevation or depression. Cardiac Monitoring: An order for continuous cardiac monitoring was placed and demonstrated Sinus tachycardia, 120 bpm, no ectopy. Laboratory studies: See below Imaging studies: XR chest 1V portable CLINICAL HISTORY: Chest Pain COMPARISON STUDY: Chest radiograph June 09, 2018. FINDINGS: Lung volumes are at the lower limits of normal. Lungs are clear. There is no pneumothorax or pleural effusion. Cardiac size is normal. Mediastinal contours are normal. There is no evidence for pulmonary edema. IMPRESSION: No acute cardiopulmonary findings. -- CT OF THE HEAD WITHOUT CONTRAST CLINICAL HISTORY: Weakness, aphasia COMPARISON STUDY: MRI of the brain September 20, 2018. Head CT July 21, 2019. TECHNIQUE: Helical axial images of the head were obtained without IV contrast. Automated exposure control was utilized for the study. A dose lowering technique was utilized adhering to the principles of ALARA. FINDINGS: Exam is mildly compromised by motion artifact. No acute intracranial hemorrhage, midline shift or mass effect is present. Ventricular system is normal. Basilar cisterns are patent. There are no extra axial collections. A few white matter hypodensities are present. There are no findings to suggest acute dural sinus thrombosis or acute territorial infarct. No calvarial fracture is present. IMPRESSION: 1. No acute intracranial hemorrhage or mass effect. 2. A few nonspecific white matter hypodensities. -- CTA ANGIOGRAPHY OF THE HEAD CLINICAL HISTORY: Weakness, aphasia COMPARISON STUDY: Head CT July 21, 2019. TECHNIQUE: Helical axial images of the head were obtained following uneventful intravenous administration of 116 cc of Optiray 320. Sagittal and coronal reconstructions were viewed as well as maximal intensity projections on an independent 3-D workstation. Automated exposure control was utilized for the study. A dose lowering technique was utilized adhering to the principles of ALARA. FINDINGS: This exam is mildly compromised by motion artifact. No acute int racranial hemorrhage, midline shift or mass effect is present. Ventricular system is normal. Basilar cisterns are patent. There are no extra axial collections. The bilateral M1, M2, A1 and A2 segments are patent. No intraluminal thrombus is noted. There is no central vessel occlusion. There is no intracranial aneurysm. There is persistence of the left posterior cerebral artery. There is a large right posterior communicating artery. Bilateral posterior cerebral arteries are patent. The posterior circulation is largely supplied by the anterior circulation. IMPRESSION: 1. No central vessel occlusion. No intracranial aneurysm. 2. Exam mildly compromised by artifact. -- CT ANGIOGRAPHY OF THE NECK WITH CONTRAST CLINICAL HISTORY: Weakness, aphasia COMPARISON STUDY: No previous studies for comparison. Technique: CT angiography of the carotid and vertebral arteries was obtained usi TouchPo Android POS Optiray 320 IV and 3D reconstruction on an independent workstation. NASCET criteria was utilized. Automated exposure control was utilized for the study. A dose lowering technique was utilized adhering to the principles of ALARA. CT DOSE: 1512.31 mGy.cm Findings: This exam is mildly compromised by motion artifact. The bilateral common carotid, cervical internal carotid and vertebral arteries are patent. The left vertebral artery is dominant. The right vertebral artery is diminutive on a congenital basis. There is no dissection within the cervical vessels. No intraluminal thrombus is noted. There is no stenosis. No aneurysm is noted. Lung apices are clear. There is no cervical lymphadenopathy or cervical spine fracture. IMPRESSION: 1. No stenosis or dissection within the major vessels of the neck. 2. Exam mildly compromised by artifact. ACT 112: Negative or not required by law. Consultation(s): Case was discussed with Dr. Arellano, [facility] hospitalist, who will evaluate the patient for admission. HPI: The patient is a 50-year-old woman with a past medical history of Bipolar I disorder and hypothyroidism [facility] emergency department via EMS after friends were concerned that she was having strokelike symptoms where her speech was slurred and she appeared more confused and felt as though this has evolved over the past several days per EMS report. The patient is a poor historian and reports today she was taking a nap and was surprised when she woke to find EMS of their. She says she did have alcohol earlier today. She otherwise has been taking her medications as prescribed including clonazepam, memantine, zipras idone. Denies any recent fevers, chills, cough congestion, nausea, vomiting, diarrhea. She feels her mouth is dry and her throat feels somewhat sore over the past 24 hours. She denies any known COVID-19 exposures. ROS: See above HPI for pertinent positives & negatives. A total of 10 systems reviewed and were otherwise negative. PAST MEDICAL HISTORY:See Below PAST SURGICAL HISTORY:See Below FAMILY HISTORY:See Below SOCIAL HISTORY:See Below HOME MEDICATIONS:See Below ALLERGIES:See Below VITALS:See Below PHYSICAL EXAMINATION: GENERAL: Awake, alert, drowsy, fatigued-appearing, in no distress HENT: Normocephalic, atraumatic. Oropharynx with dry mucous membranes and otherwise unremarkable. EYES: Normal conjunctiva. Sclera non-icteric. Sluggish ocular tracking with mild right lateral horizontal toe nystagmus. NECK: Supple. No nuchal rigidity. FROM. No JVD. RESPIRATORY: Clear to auscultation. CARDIAC: Regular rate, normal rhythm. Extremities warm and well perfused. Pulses equal. ABDOMEN: Soft, non-distended. No tenderness to palpation. No rebound or guarding. No masses. RECTAL: Deferred. MUSCULOSKELETAL: Chest examination reveals no tenderness. The back is symmetrical on inspection without obvious abnormality. There is no CVA tenderness to palpation. No joint edema. LOWER EXTREMITIES: Calves are equal size bilaterally and non-tender. No edema. No discoloration. NEURO: Mild dysarthric speech but no word finding difficulty. Slow motor moveme nts suggestive of extraparametal symptoms with symmetric 4/5 strength in all extremities. Reflexes within normal limits. No clonus. SKIN: No rash or jaundice noted. ED COURSE: Critical Care: I have personally spent greater than 45 minutes of critical care time in the direct management of this patient. This includes bedside care, interpretation of diagnostic studies, and testing, discussion with consultants, patient, and family members, and other required patient management activities. This 45 minutes is in excess of all separately billable procedures. Rom Chen MD Past Med/Surg History Medical History (Updated 03/31/20 @ 06:22 by Rom Chen MD) Acute insomnia Anxiety Anxiety Bipolar disorder Depression Status post electroconvulsive therapy Surgical History History of gastric bypass Hx of cholecystectomy Family History Other Cancer Diabetes Gallbladder disease Heart disease Lung disease Social History Smoking Status: Never smoker Second Hand Exposure: No; Hx Alcohol Use: Yes Hx Substance Use: No Preferred Language: Emirati Communication Ability: Effective Manufacturing Analyst Required: No Beliefs That Will Affect Care: None marital status: Current Living Situation: Alone current occupational status: disabled Feels Safe at Home: Yes Safety Concerns: Feels Safe At This Time Assistive Devices: Glasses and Walker Allergies Allergies Allergy/AdvReac Type Severity Reaction Status Date / Time codeine Allergy Intermediate ABD CRAMPS Verified 07/29/19 08:12 Penicillins Allergy Unknown HAPPENED Verified 07/29/19 08:12 A CHILD Home Meds Home Medications Medication Instructions Recorded Confirmed levothyroxine [Synthroid] 125 mcg PO DAILYBB 06/02/18 03/30/20 amitriptyline 50 mg PO HS 07/21/19 03/30/20 clonazepam 0.5 mg PO TID PRN 07/21/19 03/30/20 prazosin 2 mg PO HS 07/21/19 03/30/20 propranolol 10 mg PO BID 07/21/19 03/30/20 ziprasidone HCl 80 mg PO HS 07/21/19 03/30/20 methylphenidate HCl 10 mg PO BID 03/30/20 03/30/20 sertraline 75 mg PO DAILY 03/30/20 03/30/20 sertraline 100 mg PO DAILY 03/30/20 03/30/20 Results & Data (ED) Vital Signs Vital Signs - 24 hr 03/30/20 17:57 03/30/20 18:27 03/30/20 19:11 Temperature 37.3 C Temperature Source Oral Pulse Rate 123 H Pulse Rate [Bilateral Apical] 115 H Respiratory Rate 20 20 Respiratory Effort / Characteristics Non-Labored Spontaneous Respiratory Depth Normal Respiratory Pattern Regular Blood Pressure 146/98 H Blood Pressure [Left Arm] 125/89 Blood Pressure Mean 114 Blood Pressure Mean [Left Arm] 101 Pulse Oximetry 96 98 Oxygen Delivery Method Room Air Room Air Sepsis Recent Fever Within 48 Hours No Sepsis New/Unexplained Change in Mental Status N/A Sepsis Action Taken by Nursing No Action Required 03/30/20 20:40 03/30/20 21:54 Temperature Temperature Source Pulse Rate Pulse Rate [Bilateral Apical] 108 H 106 H Respiratory Rate 20 20 Respiratory Effort / Characteristics Respiratory Depth Respiratory Pattern Blood Pressure Blood Pressure [Left Arm] 124/70 129/82 Blood Pressure Mean Blood Pressure Mean [Left Arm] 88 97 Pulse Oximetry 97 98 Oxygen Delivery Method Room Air Room Air Sepsis Recent Fever Within 48 Hours Sepsis New/Unexplained Change in Mental Status Sepsis Action Taken by Nursing Laboratory Data Attestation: I reviewed the patient's lab results. Result diagrams: 03/31/20 01:58 03/31/20 01:58 Lab Results 03/30/20 03/30/20 03/30/20 Range/Units 18:26 18:26 18:26 WBC 6.69 (4.8-10.8) K/uL RBC 4.22 (4.2-5.4) M/uL Hgb 14.3 (12.0-16.0) g/dL Hct 40.3 (37-47) % MCV 95.5 (80-100) fL MCH 33.9 (25-34) pg MCHC 35.5 (32-36) g/dL RDW Std Deviation 53.4 H (36.4-46.3) fL RDW Coeff of Krystle 15.3 H (11.5-14.5) % Plt Count 294 (130-400) K/uL MPV 8.8 (7.4-10.4) fL Immature Gran % (Auto) 0.1 % Neut % (Auto) 77.6 % Lymph % (Auto) 17.9 % [place] % (Auto) 3.1 % Eos % (Auto) 1.2 % Baso % (Auto) 0.1 % Neut # (Auto) 5.18 (1.4-6.5) K/uL Lymph # (Auto) 1.20 (1.2-3.4) K/uL [place] # (Auto) 0.21 (0.11-0.59) K/uL Eos # (Auto) 0.08 (0-0.5) K/uL Baso # (Auto) 0.01 (0-0.2) K/uL Immature Gran # (Auto) 0.01 (0.00-0.02) K/uL PT 10.0 (9.0-12.0) Seconds INR 0.9 (0.9-1.1) APTT 23.4 (21.0-31.0) Seconds PTT Ratio 0.8 VBG pH (7.36-7.41) VBG pCO2 (38-50) mmHg VBG pO2 mmHg VBG HCO3 mmol/L VBG O2 Saturation % VBG Base Excess mEq/L Barometric Pressure mm/Hg Sodium 129 L (136-145) mmol/L Potassium 2.9 L (3.5-5.1) mmol/L Chloride 93 L (98-107) mmol/L Carbon Dioxide 20 L (21-32) mmol/L Anion Gap 17.0 H (3-11) BUN 5 L (7-18) mg/dl Creatinine 0.72 (0.6-1.2) mg/dl Est Cr Clr Drug Dosing 118.8 ml/min Est GFR ( Amer) 113.2 Est GFR (Non-Af Amer) 97.7 BUN/Creatinine Ratio 6.8 L (10-20) Glucose 67 L (70-99) mg/dl Osmolality (280-300) mOsm/kg Lactate (0.4-2.0) mmol/L Calcium 8.5 (8.5-10.1) mg/dl Phosphorus 2.9 (2.5-4.9) mg/dl Magnesium 1.6 L (1.8-2.4) mg/dl Total Bilirubin 0.4 (0.2-1) mg/dl Direct Bilirubin 0.2 (0-0.2) mg/dl AST 91 H (15-37) U/L ALT 65 (12-78) U/L Alkaline Phosphatase 169 H (45-117) U/L Ammonia (11-32) umol/L Total Creatine Kinase 79 (26-192) U/L Troponin I < 0.015 (0-0.045) ng/ml Total Protein 7.8 (6.4-8.2) gm/dl Albumin 3.6 (3.4-5.0) gm/dl Globulin 4.2 H (2.5-4.0) gm/dl Albumin/Globulin Ratio 0.9 (0.9-2) Lipase 108 (73-393) U/L TSH 0.495 (0.300-4.500) uIu/ml HCG, Qual (Negative) Ethyl Alcohol mg/dL (0-3) mg/dl COVID-19 Eval Order SARS-CoV-2 (PCR) (Negative) Influenza Type A (PCR) (Neg) Influenza Type B (PCR) (Neg) RSV (RT-PCR) (Neg) 03/30/20 03/30/20 03/30/20 Range/Units 18:26 18:26 18:26 WBC (4.8-10.8) K/uL RBC (4.2-5.4) M/uL Hgb (12.0-16.0) g/dL Hct (37-47) % MCV (80-100) fL MCH (25-34) pg MCHC (32-36) g/dL RDW Std Deviation (36.4-46.3) fL RDW Coeff of Krystle (11.5-14.5) % Plt Count (130-400) K/uL MPV (7.4-10.4) fL Immature Gran % (Auto) % Neut % (Auto) % Lymph % (Auto) % [place] % (Auto) % Eos % (Auto) % Baso % (Auto) % Neut # (Auto) (1.4-6.5) K/uL Lymph # (Auto) (1.2-3.4) K/uL [place] # (Auto) (0.11-0.59) K/uL Eos # (Auto) (0-0.5) K/uL Baso # (Auto) (0-0.2) K/uL Immature Gran # (Auto) (0.00-0.02) K/uL PT (9.0-12.0) Seconds INR (0.9-1.1) APTT (21.0-31.0) Seconds PTT Ratio VBG pH (7.36-7.41) VBG pCO2 (38-50) mmHg VBG pO2 mmHg VBG HCO3 mmol/L VBG O2 Saturation % VBG Base Excess mEq/L Barometric Pressure mm/Hg Sodium (136-145) mmol/L Potassium (3.5-5.1) mmol/L Chloride (98-107) mmol/L Carbon Dioxide (21-32) mmol/L Anion Gap (3-11) BUN (7-18) mg/dl Creatinine (0.6-1.2) mg/dl Est Cr Clr Drug Dosing ml/min Est GFR ( Amer) Est GFR (Non-Af Amer) BUN/Creatinine Ratio (10-20) Glucose (70-99) mg/dl Osmolality (280-300) mOsm/kg Lactate (0.4-2.0) mmol/L Calcium (8.5-10.1) mg/dl Phosphorus (2.5-4.9) mg/dl Magnesium (1.8-2.4) mg/dl Total Bilirubin (0.2-1) mg/dl Direct Bilirubin (0-0.2) mg/dl AST (15-37) U/L ALT (12-78) U/L Alkaline Phosphatase (45-117) U/L Ammonia < 10.0 L (11-32) umol/L Total Creatine Kinase (26-192) U/L Troponin I (0-0.045) ng/ml Total Protein (6.4-8.2) gm/dl Albumin (3.4-5.0) gm/dl Globulin (2.5-4.0) gm/dl Albumin/Globulin Ratio (0.9-2) Lipase (73-393) U/L TSH (0.300-4.500) uIu/ml HCG, Qual Negative (Negative) Ethyl Alcohol mg/dL 369.8 H (0-3) mg/dl COVID-19 Eval Order SARS-CoV-2 (PCR) (Negative) Influenza Type A (PCR) (Neg) Influenza Type B (PCR) (Neg) RSV (RT-PCR) (Neg) 03/30/20 03/30/20 03/30/20 Range/Units 18:26 19:25 19:25 WBC (4.8-10.8) K/uL RBC (4.2-5.4) M/uL Hgb (12.0-16.0) g/dL Hct (37-47) % MCV (80-100) fL MCH (25-34) pg MCHC (32-36) g/dL RDW Std Deviation (36.4-46.3) fL RDW Coeff of Krystle (11.5-14.5) % Plt Count (130-400) K/uL MPV (7.4-10.4) fL Immature Gran % (Auto) % Neut % (Auto) % Lymph % (Auto) % [place] % (Auto) % Eos % (Auto) % Baso % (Auto) % Neut # (Auto) (1.4-6.5) K/uL Lymph # (Auto) (1.2-3.4) K/uL [place] # (Auto) (0.11-0.59) K/uL Eos # (Auto) (0-0.5) K/uL Baso # (Auto) (0-0.2) K/uL Immature Gran # (Auto) (0.00-0.02) K/uL PT (9.0-12.0) Seconds INR (0.9-1.1) APTT (21.0-31.0) Seconds PTT Ratio VBG pH (7.36-7.41) VBG pCO2 (38-50) mmHg VBG pO2 mmHg VBG HCO3 mmol/L VBG O2 Saturation % VBG Base Excess mEq/L Barometric Pressure mm/Hg Sodium (136-145) mmol/L Potassium (3.5-5.1) mmol/L Chloride (98-107) mmol/L Carbon Dioxide (21-32) mmol/L Anion Gap (3-11) BUN (7-18) mg/dl Creatinine (0.6-1.2) mg/dl Est Cr Clr Drug Dosing ml/min Est GFR ( Amer) Est GFR (Non-Af Amer) BUN/Creatinine Ratio (10-20) Glucose (70-99) mg/dl Osmolality 358 H* (280-300) mOsm/kg Lactate (0.4-2.0) mmol/L Calcium (8.5-10.1) mg/dl Phosphorus (2.5-4.9) mg/dl Magnesium (1.8-2.4) mg/dl Total Bilirubin (0.2-1) mg/dl Direct Bilirubin (0-0.2) mg/dl AST (15-37) U/L ALT (12-78) U/L Alkaline Phosphatase (45-117) U/L Ammonia (11-32) umol/L Total Creatine Kinase (26-192) U/L Troponin I (0-0.045) ng/ml Total Protein (6.4-8.2) gm/dl Albumin (3.4-5.0) gm/dl Globulin (2.5-4.0) gm/dl Albumin/Globulin Ratio (0.9-2) Lipase (73-393) U/L TSH (0.300-4.500) uIu/ml HCG, Qual (Negative) Ethyl Alcohol mg/dL (0-3) mg/dl COVID-19 Eval Order CovFluRsv at [facility] SARS-CoV-2 (PCR) NEGATIVE (Negative) Influenza Type A (PCR) Negative (Neg) Influenza Type B (PCR) Negative (Neg) RSV (RT-PCR) Negative (Neg) 03/30/20 03/30/20 Range/Units 20:53 20:53 WBC (4.8-10.8) K/uL RBC (4.2-5.4) M/uL Hgb (12.0-16.0) g/dL Hct (37-47) % MCV (80-100) fL MCH (25-34) pg MCHC (32-36) g/dL RDW Std Deviation (36.4-46.3) fL RDW Coeff of Krystle (11.5-14.5) % Plt Count (130-400) K/uL MPV (7.4-10.4) fL Immature Gran % (Auto) % Neut % (Auto) % Lymph % (Auto) % [place] % (Auto) % Eos % (Auto) % Baso % (Auto) % Neut # (Auto) (1.4-6.5) K/uL Lymph # (Auto) (1.2-3.4) K/uL [place] # (Auto) (0.11-0.59) K/uL Eos # (Auto) (0-0.5) K/uL Baso # (Auto) (0-0.2) K/uL Immature Gran # (Auto) (0.00-0.02) K/uL PT (9.0-12.0) Seconds INR (0.9-1.1) APTT (21.0-31.0) Seconds PTT Ratio VBG pH 7.30 L (7.36-7.41) VBG pCO2 40 (38-50) mmHg VBG pO2 37 mmHg VBG HCO3 19 mmol/L VBG O2 Saturation 65.0 % VBG Base Excess -6.7 mEq/L Barometric Pressure 736.3 mm/Hg Sodium (136-145) mmol/L Potassium (3.5-5.1) mmol/L Chloride (98-107) mmol/L Carbon Dioxide (21-32) mmol/L Anion Gap (3-11) BUN (7-18) mg/dl Creatinine (0.6-1.2) mg/dl Est Cr Clr Drug Dosing ml/min Est GFR ( Amer) Est GFR (Non-Af Amer) BUN/Creatinine Ratio (10-20) Glucose (70-99) mg/dl Osmolality (280-300) mOsm/kg Lactate 3.7 H* (0.4-2.0) mmol/L Calcium (8.5-10.1) mg/dl Phosphorus (2.5-4.9) mg/dl Magnesium (1.8-2.4) mg/dl Total Bilirubin (0.2-1) mg/dl Direct Bilirubin (0-0.2) mg/dl AST (15-37) U/L ALT (12-78) U/L Alkaline Phosphatase (45-117) U/L Ammonia (11-32) umol/L Total Creatine Kinase (26-192) U/L Troponin I (0-0.045) ng/ml Total Protein (6.4-8.2) gm/dl Albumin (3.4-5.0) gm/dl Globulin (2.5-4.0) gm/dl Albumin/Globulin Ratio (0.9-2) Lipase (73-393) U/L TSH (0.300-4.500) uIu/ml HCG, Qual (Negative) Ethyl Alcohol mg/dL (0-3) mg/dl COVID-19 Eval Order SARS-CoV-2 (PCR) (Negative) Influenza Type A (PCR) (Neg) Influenza Type B (PCR) (Neg) RSV (RT-PCR) (Neg) Administered Medications Gabapentin (Gabapentin 600 Mg Tab) 600 mg PO Q6H MERI Stop: 03/31/20 12:01 Last Admin: 03/31/20 05:55 Dose: 600 mg Documented by: [id number] Lactated Ringer's (Lr) 1,000 mls @ 100 mls/hr IV .Q10H MERI Stop: 04/30/20 01:59 Last Infusion: 03/31/20 04:08 Dose: 0 mls/hr Documented by: [id number] Admin: 03/31/20 01:46 Dose: 100 mls/hr Documented by: [id number] Dextrose/Sodium Chloride (D5w And 1/2nss) 1,000 mls @ 250 mls/hr IV .Q4H ONE Stop: 03/31/20 06:51 Last Admin: 03/31/20 04:08 Dose: 250 mls/hr Documented by: [id number] Levothyroxine Sodium (Levothyroxine Sodium 125 Mcg Tablet) 125 mcg PO DAILYBB MERI Stop: 04/30/20 06:29 Last Admin: 03/31/20 05:55 Dose: 125 mcg Documented by: [id number] Miscellaneous (Carbohydrates For Hypoglycemia ) 15 - 30 gm PO UD PRN PRN Reason: Hypoglycemia Protocol Stop: 04/30/20 02:56 Last Admin: 03/31/20 04:05 Dose: 15 gm Documented by: [id number] Propranolol HCl (Propranolol Hcl 10 Mg Tab) 10 mg PO BID MERI Stop: 04/29/20 23:13 Last Admin: 03/31/20 00:29 Dose: 10 mg Documented by: [id number] Discontinued Medications Folic Acid (Folic Acid 1 Mg Tab) 1 mg PO QAM MERI Stop: 04/29/20 23:13 Last Admin: 03/31/20 00:29 Dose: 1 mg Documented by: [id number] Gabapentin (Gabapentin 600 Mg Tab) 1,200 mg PO NOW ONE Stop: 03/30/20 23:15 Last Admin: 03/31/20 00:30 Dose: 1,200 mg Documented by: [id number] Multivitamins 10 ml/ Thiamine HCl 100 mg/ Folic Acid 1 mg/Sodium Chloride 1,011.2 mls @ 1,011.2 mls/hr IV .Q1H ONE Stop: 03/30/20 19:11 Last Infusion: 03/30/20 20:15 Dose: 0 mls/hr Documented by: [id number] Admin: 03/30/20 18:47 Dose: 1,011.2 mls/hr Documented by: [id number] Magnesium Sulfate/Dextrose (Magnesium Sulfate / D5w) 1 gm in 100 mls @ 200 mls/hr IV Q30M MERI Stop: 03/30/20 21:05 Last Infusion: 03/30/20 22:01 Dose: 0 mls/hr Documented by: [id number] Admin: 03/30/20 21:00 Dose: 100 mls/hr Documented by: [id number] Infusion: 03/30/20 20:58 Dose: 0 mls/hr Documented by: [id number] Admin: 03/30/20 20:26 Dose: 200 mls/hr Documented by: [id number] Thiamine HCl 200 mg/ Sodium (Chloride) 52 mls @ 208 mls/hr IV NOW STA Stop: 03/30/20 20:18 Last Infusion: 03/30/20 21:07 Dose: 0 mls/hr Documented by: [id number] Admin: 03/30/20 20:41 Dose: 208 mls/hr Documented by: [id number] Dextrose/Sodium Chloride (D5w And Nss) 1,000 mls @ 999 mls/hr IV .Q1H1M STA Stop: 03/30/20 21:04 Last Infusion: 03/30/20 21:30 Dose: 0 mls/hr Documented by: [id number] Admin: 03/30/20 20:26 Dose: 999 mls/hr Documented by: [id number] Potassium Chloride (K Bari / Wtr) 10 meq in 100 mls @ 100 mls/hr IV Q1H MERI Stop: 03/30/20 22:14 Last Infusion: 03/30/20 22:26 Dose: 0 mls/hr Documented by: [id number] Admin: 03/30/20 21:19 Dose: 100 mls/hr Documented by: [id number] Infusion: 03/30/20 21:18 Dose: 0 mls/hr Documented by: [id number] Admin: 03/30/20 20:26 Dose: 100 mls/hr Documented by: [id number] Lactated Ringer's (Lr) 1,000 mls @ 500 mls/hr IV .Q2H ONE Stop: 03/31/20 01:07 Last Infusion: 03/31/20 02:10 Dose: 0 mls/hr Documented by: [id number] Admin: 03/30/20 23:41 Dose: 500 mls/hr Documented by: [id number] Ioversol (Optiray 320 125ml) 116 ml IV ONCE ONE Stop: 03/30/20 20:07 Last Admin: 03/30/20 20:44 Dose: Not Given Documented by: [id number] Potassium Chloride (Potassium Chloride Crtab 20 Meq Tabcr) 40 meq PO NOW STA Stop: 03/30/20 21:36 Last Admin: 03/30/20 21:50 Dose: 40 meq Documented by: [id number] Thiamine HCl (Thiamine Hcl 100 Mg Tab) 100 mg PO QAM MERI Stop: 04/29/20 23:13 Last Admin: 03/31/20 00:29 Dose: 100 mg Documented by: [id number] Discharge Plan Visit Data Chief Complaint: Altered Mental Status Stated Complaint: AMS ED Provider: Rom Chen Discharge Problem: Alcohol intoxication, Alcoholic ketoacidosis, Dehydration, Bipolar disorder, Hyponatremia, Hypokalemia, Hypomagnesemia Patient Disposition: Admitted As Inpatient Discharge Instructions Interventions: ED Discharge Assessment Last Done: 03/30/20 22:34 Discharge Problem: Alcohol intoxication Qualifiers: Complication of substance-induced condition: with delirium Qualified Code(s): F10.921 - Alcohol use, unspecified with intoxication delirium Bipolar disorder Qualifiers: Active/Remission status: remission status unspecified Qualified Code(s): F31.9 - Bipolar disorder, unspecified
[2020-03-30 18:43] LABS: Basophils # (auto) 0.01 K/uL (0-0.2); Basophils % (auto) 0.1 %; Eosinophils # (auto) 0.08 K/uL (0-0.5); Eosinophils % (auto) 1.2 %; Hematocrit (blood only) 40.3 % (37-47); Hemoglobin 14.3 g/dL (12.0-16.0); Immature Granulocytes # (auto) 0.01 K/uL (0.00-0.02); Immature Granulocytes % (auto) 0.1 %; Lymphocytes % (auto) 17.9 %; Mean Corpuscular Hemoglobin 33.9 pg (25-34); Mean Corpuscular Hgb Conc 35.5 g/dL (32-36); Mean Corpuscular Volume 95.5 fL (80-100); Mean Platelet Volume 8.8 fL (7.4-10.4); Monocytes # (auto) 0.21 K/uL (0.11-0.59); Monocytes % (auto) 3.1 %; Neutrophils # (auto) 5.18 K/uL (1.4-6.5); Neutrophils % (auto) 77.6 %; Platelet Count 294 K/uL (130-400); RDW Coefficient of Variation 15.3 % (11.5-14.5); RDW Standard Deviation 53.4 fL (36.4-46.3); Red Blood Count 4.22 M/uL (4.2-5.4); White Blood Count 6.69 K/uL (4.8-10.8)
[2020-03-30 18:55] LABS: INR 0.9 (0.9-1.1); Partial Thromboplastin Ratio 0.8; Partial Thromboplastin Time 23.4 Seconds (21.0-31.0)
[2020-03-30 19:00] LABS: Alanine Aminotransferase 65 U/L (12-78); Albumin Level 3.6 gm/dl (3.4-5.0); Aspartate Aminotransferase 91 U/L (15-37); BUN Creatinine Ratio 6.8 (10-20); Bilirubin Direct 0.2 mg/dl (0-0.2); Blood Urea Nitrogen 5 mg/dl (7-18); Calcium 8.5 mg/dl (8.5-10.1); Carbon Dioxide 20 mmol/L (21-32); Chloride 93 mmol/L (98-107); Creatinine Clr Calc Pharmacy 118.8 ml/min; Est GFR (African American) 113.2; Est GFR (Non-African American) 97.7; Glucose 67 mg/dl (70-99); Lipase 108 U/L (73-393); Magnesium 1.6 mg/dl (1.8-2.4); Potassium 2.9 mmol/L (3.5-5.1); Sodium 129 mmol/L (136-145)
[2020-03-30 19:06] LABS: Pregnancy Test, Serum Negative (Negative)
[2020-03-30 19:09] LABS: Albumin Globulin Ratio 0.9 (0.9-2); Alkaline Phosphatase 169 U/L (45-117); Bilirubin,Total 0.4 mg/dl (0.2-1); Creatine Kinase 79 U/L (26-192); Globulin 4.2 gm/dl (2.5-4.0); Phosphorus 2.9 mg/dl (2.5-4.9); Thyroid Stimulating Hormone 0.495 uIu/ml (0.300-4.500); Total Protein 7.8 gm/dl (6.4-8.2); Troponin I < 0.015 ng/ml (0-0.045)
--- NOTE | 2020-03-30 19:13 | XRay Report ---
XR chest 1V portable CLINICAL HISTORY: Chest Pain COMPARISON STUDY: Chest radiograph June 09, 2018. FINDINGS: Lung volumes are at the lower limits of normal. Lungs are clear. There is no pneumothorax o r pleural effusion. Cardiac size is normal. Mediastinal contours are normal. There is no evidence for pulmonary edema. IMPRESSION: No acute cardiopulmonary findings. ACT 112: Negative or not required by law. Electronically signed by: Asim Noriega M.D. 03/30/2020 7:12 PM
[2020-03-30] MEDS ORDERED: THIAMINE HCL 200 MG in SODIUM CHLORIDE 0.9% 50 ML IV STA (20:04)
[2020-03-30] MEDS ORDERED: D5W AND NSS 1,000 ML IV STA (20:04)
[2020-03-30] MEDS ORDERED: OPTIRAY 320 125ml IV ONE (20:06)
[2020-03-30 20:10] LABS: Influenza A virus by PCR Negative (Neg); Influenza B virus by PCR Negative (Neg); RSV by PCR Negative (Neg); SARS CoV2 RNA(COVID-19) InHosp NEGATIVE (Negative)
[2020-03-30] MEDS: POTASSIUM CHLORIDE / WTR 10 MEQ/100 ML PLCT IV SCH ×2 (20:26→21:19)
[2020-03-30] MEDS: MAGNESIUM SULFATE / D5W 1 GM/100 ML BAG IV SCH ×2 (20:26→21:00)
--- NOTE | 2020-03-30 20:32 | CT Scan Report ---
CT OF THE HEAD WITHOUT CONTRAST CLINICAL HISTORY: Weakness, aphasia COMPARISON STUDY: MRI of the brain September 20, 2018. Head CT July 21, 2019. TECHNIQUE: Helical axial images of the head were obtained without IV contrast. Automated exposure con trol was utilized for the study. A dose lowering technique was utilized adhering to the principles o f ALARA. FINDINGS: Exam is mildly compromised by motion artifact. No acute intracranial hemorrhage, midline sh ift or mass effect is present. Ventricular system is normal. Basilar cisterns are patent. There are n o extra axial collections. A few white matter hypodensities are present. There are no findings to sug gest acute dural sinus thrombosis or acute territorial infarct. No calvarial fracture is present. IMPRESSION: 1. No acute intracranial hemorrhage or mass effect. 2. A few nonspecific white matter hypodensities. ACT 112: Negative or not required by law. Electronically signed by: Asim Noriega M.D. 03/30/2020 8:31 PM
--- NOTE | 2020-03-30 20:40 | CT Scan Report ---
CT ANGIOGRAPHY OF THE NECK WITH CONTRAST CLINICAL HISTORY: Weakness, aphasia COMPARISON STUDY: No previous studies for comparison. Technique: CT angiography of the carotid and vertebral arteries was obtained using [employer] 320 IV and 3D reconstruction on an independent workstation. NASCET criteria was utilized. Automated exposure c ontrol was utilized for the study. A dose lowering technique was utilized adhering to the principles of ALARA. CT DOSE: 1512.31 mGy.cm Findings: This exam is mildly compromised by motion artifact. The bilateral common carotid, cervical internal carotid and vertebral arteries are patent. The left vertebral artery is dominant. The right vertebral artery is diminutive on a congenital basis. There is no dissection within the cervical vess els. No intraluminal thrombus is noted. There is no stenosis. No aneurysm is noted. Lung apices are c lear. There is no cervical lymphadenopathy or cervical spine fracture. IMPRESSION: 1. No stenosis or dissection within the major vessels of the neck. 2. Exam mildly compromised by artifact. ACT 112: Negative or not required by law. Electronically signed by: Asim Noriega M.D. 03/30/2020 8:38 PM
--- NOTE | 2020-03-30 20:44 | CT Scan Report ---
CTA ANGIOGRAPHY OF THE HEAD CLINICAL HISTORY: Weakness, aphasia COMPARISON STUDY: Head CT July 21, 2019. TECHNIQUE: Helical axial images of the head were obtained following uneventful intravenous administr ation of 116 cc of Optiray 320. Sagittal and coronal reconstructions were viewed as well as maximal i ntensity projections on an independent 3-D workstation. Automated exposure control was utilized for the study. A dose lowering technique was utilized adhering to the principles of ALARA. FINDINGS: This exam is mildly compromised by motion artifact. No acute intracranial hemorrhage, midli ne shift or mass effect is present. Ventricular system is normal. Basilar cisterns are patent. There are no extra axial collections. The bilateral M1, M2, A1 and A2 segments are patent. No intraluminal thrombus is noted. There is no central vessel occlusion. There is no intracranial aneurysm. There is persistence of the left posterior cerebral artery. There is a large right posterior communicati ng artery. Bilateral posterior cerebral arteries are patent. The posterior circulation is largely sup plied by the anterior circulation. IMPRESSION: 1. No central vessel occlusion. No intracranial aneurysm. 2. Exam mildly compromised by artifact. ACT 112: Negative or not required by law. Electronically signed by: Asim Noriega M.D. 03/30/2020 8:43 PM
[2020-03-30 21:06] LABS: Base Excess VBG -6.7 mEq/L; pH VBG 7.3 (7.36-7.41)
[2020-03-30] MEDS ORDERED: POTASSIUM CHLORIDE CRTAB 20 MEQ TABCR PO STA (21:35)
--- NOTE | 2020-03-30 21:45 | History & Physical Report ---
Date of Service March 30, 2020 Assessment & Plan (1) Altered mental status: (2) Alcohol intoxication: (3) Hyponatremia: (4) Hypokalemia: (5) Hypomagnesemia: (6) Bipolar disorder: (7) Hypothyroidism: Assessment and Plan per Dr Arellano. Follows with Dr Amanda for routine care Pt was seen and care coordinated with Dr Arellano. See addendum for Assessment and Plan History of Present Illness Chief Complaint: AMS Primary Care Provider: Nick Amanda MD Pt is 50 y/o F with PMH bipolar disorder, anxiety, insomnia, hypothyroidism presented to ER for altered mental status today. History obtained from ER staff and patient. It is reported patient was found in her house today lying on couch with altered mental status and slurred speech. Patient reports she remembers taking her medications this morning. She reports she received a call that her exfianc was going to be released from nursing home and that caused her some anxiety. She reports remembering drinking a Coke and vodka and lying down for a nap. Patient does state she felt she was confused upon ER arrival however since been in ER she is feeling better and is alert and at her baseline. Patient reports chronic depression and chronic suicidal ideations. Denies any plan. She follows with Dr. Carr psychiatry outpatient. On 03/14/2020 her Prozac was discontinued and Zoloft was started at 50 mg. Patient states feels depression is slightly improved and yesterday increased to 75 mg which is to be dosed for 1 week followed by 100 mg daily. Patient denies any other recent medication changes. She denies any [id number] medications or illicit drug use. Patient reports drinks 2 alcoholic drinks a couple of times a week. Currently patient reports mouth feels dry and is thirsty. She is currently denying any other complaints. Denies fever/chills, diaphoresis, N/V/D/C, SMITH, dizziness, syncope, vision changes, neck pain, CP, SOB, orthopnea, palpitations, cough, choking, otalgia, rhinorrhea, abdominal pain, paresthesias, weakness, extremity weakness, extremity edema, rashes, urinary symptoms. Allergies Allergy/AdvReac Type Severity Reaction Status Date / Time codeine Allergy Intermediate ABD CRAMPS Verified 07/29/19 08:12 Penicillins Allergy Unknown HAPPENED Verified 07/29/19 08:12 A CHILD Home Medications Medication Instructions Recorded Confirmed Type levothyroxine [Synthroid] 125 mcg PO DAILYBB 06/02/18 03/30/20 History amitriptyline 50 mg PO HS 07/21/19 03/30/20 History clonazepam 0.5 mg PO TID PRN 07/21/19 03/30/20 History prazosin 2 mg PO HS 07/21/19 03/30/20 History propranolol 10 mg PO BID 07/21/19 03/30/20 History ziprasidone HCl 80 mg PO HS 07/21/19 03/30/20 History methylphenidate HCl 10 mg PO BID 03/30/20 03/30/20 History sertraline 75 mg PO DAILY 03/30/20 03/30/20 History sertraline 100 mg PO DAILY 03/30/20 03/30/20 History Past Med/Surg History Medical History (Updated 03/30/20 @ 21:43 by Zoila Salazar PA-C) Acute insomnia Anxiety Anxiety Bipolar disorder Depression Status post electroconvulsive therapy Surgical History History of gastric bypass Hx of cholecystectomy Family History Other Cancer Diabetes Gallbladder disease Heart disease Lung disease Social History Smoking Status: Never smoker Second Hand Exposure: No; Hx Alcohol Use: Yes Hx Substance Use: No Preferred Language: Bulgarian Communication Ability: Effective Assisted Living Housekeeper Required: No Beliefs That Will Affect Care: None marital status: Current Living Situation: Alone current occupational status: disabled Feels Safe at Home: Yes Safety Concerns: Feels Safe At This Time Assistive Devices: Glasses and Walker Review of Systems Review of Systems: All systems reviewed & are unremarkable except as noted in HPI & below Physical Exam Physical Exam: General: no distress, obese Head: normocephalic, atraumatic Eyes: PERRL, EOM's intact, conjunctiva non-injected, anicteric ENT: normal inspection external ears, nose, mucous membranes dry Neck: supple, trachea midline Lungs: clear, no respiratory distress, no wheezing/rhonchi/rales CV: tachycardia at 120, regular rhythm, no murmur, no pretibial edema Abd: normal BS, soft, non-tender Ext: no cyanosis, no calf tenderness Neuro: A&O x 3, no focal deficits noted, no tongue fasciculations noted, no tremors noted, flat affect Skin: warm, dry Results & Data Results & Data ([facility]) Vital Signs (Past 12 Hours) Vital Signs Temp Pulse Pulse Resp BP BP Pulse Ox 03/30/20 20:40 108 H 20 124/70 97 03/30/20 19:11 115 H 20 125/89 98 03/30/20 17:57 37.3 C 123 H 20 146/98 H 96 Laboratory Results Short CBC 03/30/20 Range/Units 18:26 WBC 6.69 (4.8-10.8) K/uL Hgb 14.3 (12.0-16.0) g/dL Hct 40.3 (37-47) % Plt Count 294 (130-400) K/uL BMP 03/30/20 18:26 Sodium 129 L Potassium 2.9 L Chloride 93 L Carbon Dioxide 20 L BUN 5 L Creatinine 0.72 Glucose 67 L Calcium 8.5 Cardiac Enzymes 03/30/20 Range/Units 18:26 Total Creatine Kinase 79 (26-192) U/L Troponin I < 0.015 (0-0.045) ng/ml Liver Function 03/30/20 Range/Units 18:26 Total Bilirubin 0.4 (0.2-1) mg/dl Direct Bilirubin 0.2 (0-0.2) mg/dl AST 91 H (15-37) U/L ALT 65 (12-78) U/L Alkaline Phosphatase 169 H (45-117) U/L Albumin 3.6 (3.4-5.0) gm/dl Diagnostic Findings CT HEAD: IMPRESSION: 1. No acute intracranial hemorrhage or mass effect. 2. A few nonspecific white matter hypodensities CTA HEAD: IMPRESSION: 1. No central vessel occlusion. No intracranial aneurysm. 2. Exam mildly compromised by artifact. CTA NECK: IMPRESSION: 1. No stenosis or dissection within the major vessels of the neck. 2. Exam mildly compromised by artifact. CXR: IMPRESSION: No acute cardiopulmonary findings. Supervising Physician Co-Signing Physician Notes IM ATTENDING : Patient seen and examined. History obtained from patient and records. Preceding documentation by Ms. Zoila Salazar PA-C reviewed. FINAL ASSESSMENT AND PLAN as follows : Encephalopathy Multifactorial : Alcohol intoxication Hyponatremia, clinical dehydration Patient mentation much improved after IVF administration at the ER. Alcoholic ketoacidosis Hypokalemia secondary to poor p.o. intake Mood disorder, suboptimal, patient denies suicidality Hypothyroidism, euthyroid as of today's TSH History gastric bypass Medical telemetry IVF Replace electrolytes ARMADNO S, DT precautions Psych consult Re: Mood disorder DVT prophylaxis. Lovenox subcu Full code Text document was generated using [employer] voice recognition software. It may contain grammatical or spelling errors. Kindly contact undersigned for clarification of any documentation item in question.
[2020-03-30 22:34] LABS: Appearance Urine Clear (Clear); Bilirubin Urine Negative (Negative); Blood Urine Negative (Negative); Color Urine Yellow; Glucose Urine UA Negative (Negative); Ketones Urine Negative (Negative); Leukocyte Esterase Urine Negative (Negative); Nitrite Urine Negative (Negative); Protein Urine Negative (Negative); Specific Gravity Urine 1.017 (1.000-1.030); Urobilinogen Urine Negative (Negative); pH Urine 5.5 (4.5-7.5)
[2020-03-30] MEDS ORDERED: LACTATED RINGER'S 1,000 ML IV ONE (23:08)
[2020-03-30] MEDS ORDERED: ATIVAN IV ALCOHOL WITHDRAWL IV PRN (23:14)
[2020-03-30] MEDS ORDERED: GABAPENTIN 600 MG TAB PO ONE (23:14)
[2020-03-30] MEDS ORDERED: THIAMINE HCL 100 MG TAB PO SCH (23:14)
[2020-03-30] MEDS ORDERED: ACETAMINOPHEN 325 MG TAB PO PRN (23:14)
[2020-03-30] MEDS ORDERED: LORazepam 2 MG/4 ML VIAL IV PRN (23:14)
[2020-03-30] MEDS ORDERED: LORazepam 1 MG/2 ML VIAL IV PRN (23:14)
[2020-03-30] MEDS ORDERED: PROMETHAZINE HCL 12.5 MG in SODIUM CHLORIDE 0.9% 50 ML IV PRN (23:14)
[2020-03-30] MEDS ORDERED: LORazepam 3 MG/6 ML VIAL IV PRN (23:14)
[2020-03-30] MEDS ORDERED: FOLIC ACID 1 MG TAB PO SCH (23:14)
[2020-03-30] MEDS ORDERED: GABAPENTIN 1200MG ALCOHOL WITHDRAWAL LOAD PO STA (23:14)
[2020-03-31] MEDS: PROPRANOLOL HCL 10 MG TAB PO SCH ×3 (00:29→20:25)
[2020-03-31] MEDS ORDERED: LACTATED RINGER'S 1,000 ML IV SCH (02:00)
[2020-03-31 02:11] LABS: Basophils # (auto) 0.01 K/uL (0-0.2); Basophils % (auto) 0.2 %; Eosinophils # (auto) 0.11 K/uL (0-0.5); Eosinophils % (auto) 2.3 %; Hemoglobin 12.6 g/dL (12.0-16.0); Immature Granulocytes # (auto) 0.01 K/uL (0.00-0.02); Immature Granulocytes % (auto) 0.2 %; Lymphocytes # (auto) 1.39 K/uL (1.2-3.4); Lymphocytes % (auto) 29.4 %; Mean Corpuscular Hemoglobin 33.2 pg (25-34); Mean Platelet Volume 8.7 fL (7.4-10.4); Monocytes # (auto) 0.49 K/uL (0.11-0.59); Monocytes % (auto) 10.4 %; Neutrophils # (auto) 2.71 K/uL (1.4-6.5); Neutrophils % (auto) 57.5 %; Platelet Count 279 K/uL (130-400); RDW Coefficient of Variation 15.5 % (11.5-14.5); RDW Standard Deviation 53.8 fL (36.4-46.3); Red Blood Count 3.79 M/uL (4.2-5.4); White Blood Count 4.72 K/uL (4.8-10.8)
[2020-03-31 02:43] LABS: BUN Creatinine Ratio 4.5 (10-20); Calcium 7.6 mg/dl (8.5-10.1); Est GFR (African American) 123.9; Est GFR (Non-African American) 106.9; Magnesium 2.2 mg/dl (1.8-2.4); Potassium 3.7 mmol/L (3.5-5.1)
[2020-03-31] MEDS ORDERED: D5W AND 1/2NSS 1,000 ML IV ONE (02:52)
[2020-03-31] MEDS ORDERED: DEXTROSE 50% 50 ML SYRINGE IV PRN (02:57)
[2020-03-31] MEDS ORDERED: GLUCAGON FOR INJ 1 MG VIAL SQ PRN (02:57)
[2020-03-31] MEDS ORDERED: GLUCOSE 10 TABS/TUBE PO PRN (02:57)
[2020-03-31] MEDS ORDERED: GLUCOSE 40% GEL 15 GM TUBE PO PRN (02:57)
[2020-03-31] MEDS ORDERED: CARBOHYDRATES FOR HYPOGLYCEMIA PO PRN (02:57)
[2020-03-31] MEDS ORDERED: DEXTROSE 5% 1,000 ML IV SCH ×2 (05:00→07:00)
[2020-03-31] MEDS: GABAPENTIN 600 MG TAB PO SCH ×3 (05:55→20:51)
[2020-03-31] MEDS: LEVOTHYROXINE SODIUM 125 MCG TABLET PO SCH (05:55)
[2020-03-31] MEDS ORDERED: METHYLPHENIDATE HCL 10 MG TABLET PO SCH (09:00)
[2020-03-31] MEDS ORDERED: SODIUM CHLORIDE 0.45 % 1,000 ML IV SCH (09:15)
[2020-03-31] MEDS: ENOXAPARIN INJ 40 MG/0.4 ML SYR SQ SCH (09:36)
[2020-03-31] MEDS: SERTRALINE HCL 100 MG TABLET PO SCH (09:36)
[2020-03-31] MEDS: MULTIVITAMIN TAB PO SCH (09:36)
--- NOTE | 2020-03-31 12:38 | Hospitalist Progress Note ---
Date of Service March 31, 2020 Assessment & Plan (1) Alcohol intoxication: Acute metabolic encephalopathy Acute alcohol intoxication Alcoholic ketoacidosis -CT head:No acute intracranial hemorrhage or mass effect. A few nonspecific white matter hypodensities. -Head CTA:No central vessel occlusion. No intracranial aneurysm. Exam mildly compromised by artifact. -Neck CTA:No stenosis or dissection within the major vessels of the neck. Exam mildly compromised by artifact. -Toxicology screen--Alcohol levels:369 On gabapentin protocol Continue thiamine, folic acid, lorazepam as needed Counseled to quit smoking Monitor for alcohol withdrawal Mental status back to baseline Hyponatremia Hypokalemia Hypomagnesemia Likely secondary to alcohol use, dehydration, Poor oral intake Sodium levels normalized with IV fluids Replete electrolytes as needed Lactic acidosis Likely type B secondary to alcohol use Continue IV fluids Monitor Hypothyroidism Normal TSH Continue levothyroxine Bipolar disorder Anxiety disorder Insomnia Continue home medications Psychiatry consulted H/O Gastric Bypass DVT Px: Lovenox SQ Code Status Full Code Admission and Anticipated Discharge Date Admission Date: March 30, 2020 Subjective Patient is seen and examined at bedside Reports mild headache Mental status back to baseline Denies chest pain, shortness of breath, dizziness, nausea, abdominal pain Speech clear Eager to get discharged Review of Systems Review of Systems: All systems reviewed & are unremarkable except as noted in HPI & below Physical Exam Physical Exam: Physical Exam: Vitals signs as noted above General Appearance:Moderately built and nourished, no apparent distress Head: normocephalic, Atraumatic Eyes: normal inspection, EOMI Neck: supple, Trachea midline Respiratory/Chest: Normal breath sounds, CTA Cardiovascular: S1, S2, No murmur Abdomen/GI:Soft, Non tender, Bowel sounds present Extremities/Musculoskelatal:normal inspection, no edema Neurologic/Psych:AAOX3, grossly no focal neurological deficits, +Tremor (Chronic per Pt) Skin: normal color, warm Results & Data Results & Data ([facility]) Vital Signs (Past 12 Hours) Vital Signs Temp Pulse Pulse Resp BP Pulse Ox 03/31/20 11:13 36.8 C 88 18 144/93 H 95 03/31/20 09:39 92 H 133/87 03/31/20 07:30 36.9 C 93 H 20 136/91 93 03/31/20 07:00 93 H 03/31/20 04:41 36.8 C 98 H 20 133/84 95 03/31/20 00:34 36.9 C 107 H 16 136/87 96 Laboratory Results Short CBC 03/30/20 03/31/20 Range/Units 18:26 01:58 WBC 6.69 4.72 L (4.8-10.8) K/uL Hgb 14.3 12.6 (12.0-16.0) g/dL Hct 40.3 36.0 L (37-47) % Plt Count 294 279 (130-400) K/uL BMP 03/30/20 03/31/20 03/31/20 18:26 01:58 06:13 Sodium 129 L 140 D 139 Potassium 2.9 L 3.7 D Chloride 93 L 109 H Carbon Dioxide 20 L 22 BUN 5 L 3 L Creatinine 0.72 0.59 L Glucose 67 L 55 L Calcium 8.5 7.6 L Cardiac Enzymes 03/30/20 Range/Units 18:26 Total Creatine Kinase 79 (26-192) U/L Troponin I < 0.015 (0-0.045) ng/ml Liver Function 03/30/20 Range/Units 18:26 Total Bilirubin 0.4 (0.2-1) mg/dl Direct Bilirubin 0.2 (0-0.2) mg/dl AST 91 H (15-37) U/L ALT 65 (12-78) U/L Alkaline Phosphatase 169 H (45-117) U/L Albumin 3.6 (3.4-5.0) gm/dl Urine 03/30/20 Range/Units 22:20 Urine Color Yellow Urine Appearance Clear (Clear) Urine pH 5.5 (4.5-7.5) Ur Specific [place] 1.017 (1.000-1.030) Urine Protein Negative (Negative) Urine Glucose (UA) Negative (Negative) (1) Alcohol intoxication Complication of substance-induced condition: with delirium Qualified Code(s): F10.921 - Alcohol use, unspecified with intoxication delirium
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
--- NOTE | 2020-03-31 13:12 | Electrocardiogram Report ---
Test Reason : Blood Pressure : / mmHG Vent. Rate : 120 BPM Atrial Rate : 120 BPM P-R Int : 142 ms QRS Dur : 078 ms QT Int : 334 ms P-R-T Axes : 053 119 075 degrees QTc Int : 472 ms Sinus tachycardia Possible Left atrial enlargement Low voltage QRS Left posterior fascicular block Poor R wave progression, consider anterior FL vs. lead placement vs. LVH Abnormal ECG When compared with ECG of 21-JUL-2019 13:26, Left posterior fascicular block is now Present Confirmed by Eddie Ortiz ([id number]) on 03/31/2020 1:11:57 PM Referred By: REFERRED SELF Confirmed By:Eddie Ortiz
[2020-03-31] MEDS ORDERED: Nursing to Pharmacy Communication SCH (16:15)
[2020-03-31] MEDS ORDERED: PRAZOSIN HCL 1 MG CAP PO SCH (21:00)
[2020-03-31] MEDS ORDERED: ziprasidone HCL 80 MG CAP PO SCH (21:00)
[2020-04-01] MEDS: GABAPENTIN 600 MG TAB PO SCH (05:42)
[2020-04-01] MEDS: LEVOTHYROXINE SODIUM 125 MCG TABLET PO SCH (05:43)
[2020-04-01 07:09] LABS: Hematocrit (blood only) 34.8 % (37-47); Hemoglobin 11.7 g/dL (12.0-16.0); Mean Corpuscular Hemoglobin 33.4 pg (25-34); Mean Corpuscular Hgb Conc 33.6 g/dL (32-36); Mean Corpuscular Volume 99.4 fL (80-100); Mean Platelet Volume 8.8 fL (7.4-10.4); Platelet Count 205 K/uL (130-400); RDW Coefficient of Variation 16.2 % (11.5-14.5); RDW Standard Deviation 59.3 fL (36.4-46.3); White Blood Count 2.81 K/uL (4.8-10.8)
[2020-04-01 07:43] LABS: BUN Creatinine Ratio 4.6 (10-20); Calcium 8.4 mg/dl (8.5-10.1); Creatinine Clr Calc Pharmacy 127.1 ml/min; Est GFR (African American) 118.8; Est GFR (Non-African American) 102.5; Magnesium 2.3 mg/dl (1.8-2.4); Potassium 3.8 mmol/L (3.5-5.1)
[2020-04-01] MEDS: SERTRALINE HCL 100 MG TABLET PO SCH (08:31)
[2020-04-01] MEDS: MULTIVITAMIN TAB PO SCH (08:31)
[2020-04-01] MEDS: PROPRANOLOL HCL 10 MG TAB PO SCH (08:32)
[2020-04-01] MEDS: ENOXAPARIN INJ 40 MG/0.4 ML SYR SQ SCH (08:32)
[2020-04-01] MEDS ORDERED: THIAMINE HCL 100 MG TAB PO SCH (09:00)
[2020-04-01] MEDS ORDERED: FOLIC ACID 1 MG TAB PO SCH (09:00)
--- NOTE | 2020-04-01 09:48 | Hospitalist Progress Note ---
Date of Service April 01, 2020 Assessment & Plan (1) Alcohol intoxication: Acute metabolic encephalopathy Acute alcohol intoxication Alcoholic ketoacidosis -CT head:No acute intracranial hemorrhage or mass effect. A few nonspecific white matter hypodensities. -Head CTA:No central vessel occlusion. No intracranial aneurysm. Exam mildly compromised by artifact. -Neck CTA:No stenosis or dissection within the major vessels of the neck. Exam mildly compromised by artifact. -Toxicology screen--Alcohol levels:369 On gabapentin protocol Continue thiamine, folic acid, lorazepam as needed Counseled to quit smoking Monitor for alcohol withdrawal Mental status back to baseline No signs of withdrawal Hyponatremia Hypokalemia Hypomagnesemia Likely secondary to alcohol use, dehydration, Poor oral intake Sodium levels normalized with IV fluids Replete electrolytes as needed Resolved Lactic acidosis Likely type B secondary to alcohol use Received IV fluids Resolved Hypothyroidism Normal TSH Continue levothyroxine Bipolar disorder Anxiety disorder Insomnia Continue home medications Appreciate Psychiatry Input Has an outpatient follow up appointment next week H/O Gastric Bypass DVT Px: Lovenox SQ Code Status Full Code Disposition Plan to discharge home Admission and Anticipated Discharge Date Admission Date: March 30, 2020 Subjective Patient is seen and examined at bedside States feeling well No complaints Headache resolved Denies chest pain, shortness of breath, dizziness, nausea, abdominal pain No signs of withdrawal Review of Systems Review of Systems: All systems reviewed & are unremarkable except as noted in HPI & below Physical Exam Physical Exam: Physical Exam: Vitals signs as noted above General Appearance:Moderately built and nourished, no apparent distress Head: normocephalic, Atraumatic Eyes: normal inspection, EOMI Neck: supple, Trachea midline Respiratory/Chest: Normal breath sounds, CTA Cardiovascular: S1, S2, No murmur Abdomen/GI:Soft, Non tender, Bowel sounds present Extremities/Musculoskelatal:normal inspection, no edema Neurologic/Psych:AAOX3, grossly no focal neurological deficits, +Tremor (Chronic per Pt) Skin: normal color, warm Results & Data Results & Data ([facility]) Vital Signs (Past 12 Hours) Vital Signs Temp Pulse Pulse Resp BP Pulse Ox 04/01/20 07:53 36.6 C 76 18 111/77 96 04/01/20 07:15 74 04/01/20 02:46 36.5 C 73 16 95/71 L 95 03/31/20 23:03 84 03/31/20 22:05 36.8 C 81 18 103/70 90 Laboratory Results Short CBC 04/01/20 Range/Units 06:55 WBC 2.81 L (4.8-10.8) K/uL Hgb 11.7 L (12.0-16.0) g/dL Hct 34.8 L (37-47) % Plt Count 205 (130-400) K/uL BMP 03/31/20 04/01/20 11:54 06:55 Sodium 137 139 Potassium 3.8 Chloride 106 Carbon Dioxide 31 BUN 3 L Creatinine 0.67 Glucose 75 Calcium 8.4 L (1) Alcohol intoxication Complication of substance-induced condition: with delirium Qualified Code(s): F10.921 - Alcohol use, unspecified with intoxication delirium
--- NOTE | 2020-04-01 10:00 | Discharge Summary ---
Date of Service April 01, 2020 Admission HPI Per Admitting Provider Pt is 50 y/o F with PMH bipolar disorder, anxiety, insomnia, hypothyroidism presented to ER for altered mental status today. History obtained from ER staff and patient. It is reported patient was found in her house today lying on couch with altered mental status and slurred speech. Patient reports she remembers taking her medications this morning. She reports she received a call that her exfianc was going to be released from nursing home and that caused her some anxiety. She reports remembering drinking a Coke and vodka and lying down for a nap. Patient does state she felt she was confused upon ER arrival however since been in ER she is feeling better and is alert and at her baseline. Patient reports chronic depression and chronic suicidal ideations. Denies any plan. She follows with Dr. Carr psychiatry outpatient. On 03/14/2020 her Prozac was discontinued and Zoloft was started at 50 mg. Patient states feels depression is slightly improved and yesterday increased to 75 mg which is to be dosed for 1 week followed by 100 mg daily. Patient denies any other recent medication changes. She denies any [id number] medications or illicit drug use. Patient reports drinks 2 alcoholic drinks a couple of times a week. Currently patient reports mouth feels dry and is thirsty. She is currently denying any other complaints. Denies fever/chills, diaphoresis, N/V/D/C, SMITH, dizziness, syncope, vision changes, neck pain, CP, SOB, orthopnea, palpitations, cough, choking, otalgia, rhinorrhea, abdominal pain, paresthesias, weakness, extremity weakness, extremity edema, rashes, urinary symptoms. Admission Exam Per Admitting Provider Physical Exam Physical Exam: General: no distress, obese Head: normocephalic, atraumatic Eyes: PERRL, EOM's intact, conjunctiva non-injected, anicteric ENT: normal inspection external ears, nose, mucous membranes dry Neck: supple, trachea midline Lungs: clear, no respiratory distress, no wheezing/rhonchi/rales CV: tachycardia at 120, regular rhythm, no murmur, no pretibial edema Abd: normal BS, soft, non-tender Ext: no cyanosis, no calf tenderness Neuro: A&O x 3, no focal deficits noted, no tongue fasciculations noted, no tremors noted, flat affect Skin: warm, dry Principal Diagnosis Acute metabolic encephalopathy Acute alcohol intoxication Hypokalemia Hyponatremia Hypomagnesemia Discharge Data Allergies Allergy/AdvReac Type Severity Reaction Status Date / Time codeine Allergy Intermediate ABD CRAMPS Verified 07/29/19 08:12 Penicillins Allergy Unknown HAPPENED Verified 07/29/19 08:12 A CHILD Consultations 03/30/20 20:48 ED Decision to Admit Stat 03/30/20 23:14 Consult Psychiatry Routine Procedures Performed -CT head:No acute intracranial hemorrhage or mass effect. A few nonspecific white matter hypodensities. -Head CTA:No central vessel occlusion. No intracranial aneurysm. Exam mildly compromised by artifact. -Neck CTA:No stenosis or dissection within the major vessels of the neck. Exam mildly compromised by artifact. -CXR:No acute cardiopulmonary findings. Ordered Studies 03/30/20 18:15 CT angio head w con Stat CT angio neck with con Stat CT head/brain wo con Stat Hospital Course (1) Alcohol intoxication: Acute metabolic encephalopathy Acute alcohol intoxication Alcoholic ketoacidosis -CT head:No acute intracranial hemorrhage or mass effect. A few nonspecific white matter hypodensities. -Head CTA:No central vessel occlusion. No intracranial aneurysm. Exam mildly compromised by artifact. -Neck CTA:No stenosis or dissection within the major vessels of the neck. Exam mildly compromised by artifact. -Toxicology screen--Alcohol levels:369 On gabapentin protocol Continue thiamine, folic acid, lorazepam as needed Counseled to quit smoking Monitor for alcohol withdrawal Mental status back to baseline No signs of withdrawal Hyponatremia Hypokalemia Hypomagnesemia Likely secondary to alcohol use, dehydration, Poor oral intake Sodium levels normalized with IV fluids Replete electrolytes as needed Resolved Lactic acidosis Likely type B secondary to alcohol use Received IV fluids Resolved Hypothyroidism Normal TSH Continue levothyroxine Bipolar disorder Anxiety disorder Insomnia Continue home medications Appreciate Psychiatry Input Has an outpatient follow up appointment next week H/O Gastric Bypass DVT Px: Lovenox SQ Code Status Full Code Disposition Plan to discharge home Total Time Total Time Spent Total Time Spent (In Minutes): 39 minutes Discharge Plan Discharge Items Patient Disposition: Home - Self-Care Reason For Visit: ENCEPHALOPATHY Discharge Diagnosis: Acute metabolic encephalopathy Acute alcohol intoxication Electrolyte imbalances Activity: Per Instructions section Exercise/Sports: Gradually increase as tolerated Non-emergency contact: Primary Care Provider and Psychiatrist Call non-emergency contact if: you have any medication questions, your symptoms worsen, your pain is not controlled, your pain is worsening, your pain is unusual for you, your pain is concerning for you and you have a fever Follow-up/Referrals: Nick Amanda MD [Primary Care Provider] - Diet: Heart Healthy Addtl Attending Provider Instructions: Follow-up with your primary care physician Dr. Amanda in 1 week as advised Follow-up with your psychiatrist Dr. Carr in 1 week as scheduled Quit drinking alcohol as advised Seek immediate medical attention if your symptoms reoccur or worsen Pending Studies at Discharge: No Stand-Alone Forms: [facility], [facility], Smoking Cessation Medications and DC Order Prescriptions: New gabapentin 600 mg Tablet 600 mg PO DAILY Qty: 3 RF: 0 thiamine HCl (vitamin B1) [Vitamin B-1] 100 mg Tablet 100 mg PO QAM Qty: 30 RF: 0 folic acid 1 mg Tablet 1 mg PO QAM Qty: 30 RF: 0 Continued levothyroxine [Synthroid] 125 mcg Tablet 125 mcg PO DAILYBB RF: 0 clonazepam 0.5 mg tablet 0.5 mg PO TID PRN (Reason: Insomnia) RF: 0 propranolol 10 mg tablet 10 mg PO BID RF: 0 prazosin 2 mg capsule 2 mg PO HS RF: 0 amitriptyline 25 mg tablet 50 mg PO HS RF: 0 ziprasidone HCl 40 mg capsule 80 mg PO HS RF: 0 methylphenidate HCl 10 mg tablet 10 mg PO BID RF: 0 sertraline 100 mg tablet 100 mg PO DAILY RF: 0 sertraline 50 mg tablet 75 mg PO DAILY RF: 0 Discharge Orders: Discharge Order (Routine); Ordered 04/01/20 Ordered By: Charlie De La Vega Admission Data Admit Date/Time: 03/30/20 21:57 Attending Provider: Charlie De La Vega Admit Provider: Dayo Arellano Primary Care Provider: Nick Amanda Other Providers: Dayo Arellano ; Stewart Arvizu ; Shiloh Mcdowell ; Kory Henry ; Usama Castro ; Alfredo Hamm ; Mary Anne Lea ; Dylon Rushing ; aNncy Varma ; Leana Romo ; Carmel Moore ; Gustabo Rodríguez I. ; Shannan Cesar ; Genia Vo ; Sandy Moy Other Interventions: Discharge Summary Assessment (RN) Last Done: 04/01/20 11:21
[2020-04-02] MEDS ORDERED: GABAPENTIN 600 MG TAB PO SCH
[2020-04-03] MEDS ORDERED: GABAPENTIN 600 MG TAB PO SCH (12:00)
== END 2020-04-01 12:00 | disposition home or self-care (01) | DRG 896 ==
LOC: ED 17:45 → 2W 21:57